=== PATIENT | male | born 1980 | race Caucasian/White ===

== ENCOUNTER 2020-01-13 22:30 | Emergency (ER) | payer SELFPAY ==
[~2020-01-13] VITALS: Ht 167.6 cm; Wt 63.5 kg
[2020-01-14 01:22] VITALS: BP 111/78
== END 2020-01-14 01:34 | disposition home or self-care (01) ==
LOC: EDBD 22:30 → ER 22:36
DX: R06.02 Shortness of breath (principal); J02.9 Acute pharyngitis, unspecified; R19.7 Diarrhea, unspecified; Z20.828 Contact with and (suspected) exposure to other viral communicable diseases
CPT/HCPCS: 71045; 87635; 87804; 87880; 99284; U0003

== ENCOUNTER 2021-01-14 16:27 | Emergency (ER) | payer MEDICAID, OTHER ==
[~2021-01-14] VITALS: Ht 167.6 cm; Wt 72.6 kg
[2021-01-14 18:56] VITALS: BP 129/82
[2021-01-14 20:50] LABS: Basophils # (auto) 0 10 ^3/uL (0-0.2); Basophils % (auto) 0.3 % (0.0-2.0); Eosinophils # (auto) 0.1 10 ^3/uL (0-0.8); Eosinophils % (auto) 1.5 % (0.0-7.0); Hematocrit 37.2 % (41.0-53.0); Hemoglobin 12.8 g/dL (13.5-17.5); Lymphocytes # (auto) 1.8 10 ^3/uL (0.4-5.4); Lymphocytes % (auto) 20.8 % (10.0-50.0); Mean Corpuscular Hemoglobin 30.5 pg (28.0-32.0); Mean Corpuscular Hgb Conc. 34.3 g/dL (32.0-36.0); Mean Corpuscular Volume 88.9 fL (80.0-100.0); Monocytes # (auto) 0.7 10 ^3/uL (0-1.3); Monocytes % (auto) 8.1 % (0.0-12.0); Neutrophils # (auto) 5.9 10 ^3/uL (1.6-8.6); Neutrophils % (auto) 69.3 % (37.0-80.0); Platelet Count (auto) 230 10^3/uL (140-450); Red Blood Cells 4.19 10^6/uL (4.5-5.90); Red Cell Distribution Width 13.2 % (11.8-14.3); White Blood Cell 8.6 10^3/uL (4.4-10.8)
[2021-01-14 21:16] LABS: Potassium 3.4 mmol/L (3.5-5.1)
[2021-01-14 21:23] LABS: Albumin 3.6 g/dL (3.4-5.0); BUN/Creatinine Ratio 12.7; Bilirubin, Total 0.3 mg/dL (0.2-1.0); CRP High Sensitivity 0.38 mg/dL (< 0.3); Calcium 8.5 mg/dL (8.5-10.1)
== END 2021-01-14 21:53 | disposition home or self-care (01) ==
LOC: ER 16:27
DX: L03.115 Cellulitis of right lower limb (principal)
CPT/HCPCS: 36415; 73700; 80053; 83605; 85025; 85049; 85652; 86141; 87040

== ENCOUNTER 2021-10-20 14:58 | Emergency (ER) | payer OTHER ==
[~2021-10-20] VITALS: Ht 180.3 cm; Wt 74.8 kg
[2021-10-20 19:14] VITALS: BP 134/80
== END 2021-10-20 19:20 | disposition home or self-care (01) ==
LOC: ER 14:58
DX: S61.210A Laceration without foreign body of right index finger without damage to nail, initial encounter (principal); W26.8XXA Contact with other sharp object(s), not elsewhere classified, initial encounter; Y93.89 Activity, other specified; Y92.89 Other specified places as the place of occurrence of the external cause; Y99.8 Other external cause status
CPT/HCPCS: 12002

== ENCOUNTER 2022-04-27 11:26 | Inpatient (IN) | payer OTHER ==
[~2022-04-27] VITALS: Ht 180.3 cm; Wt 70.2 kg
[2022-04-27] MEDS ORDERED: VANCOMYCIN 1GM/250ML 250 ML IV ONE (14:15)
[2022-04-27] MEDS ORDERED: SODIUM CHLORIDE 0.9% 2,250 ML IV ONE (14:15)
[2022-04-27] MEDS ORDERED: KETOROLAC TROMETH 30 MG/ML 1ML VIAL IV ONE (14:15)
[2022-04-27] MEDS ORDERED: PIPERACILLIN-TAZOB 3.375GM 100 ML IV ONE (14:15)
[2022-04-27] MEDS ORDERED: ONDANSETRON HCL 4 MG/2 ML VIAL IV ONE (14:15)
[2022-04-27 14:36] LABS: Basophils # (auto) 0 10 ^3/uL (0-0.2); Basophils % (auto) 0.2 % (0.0-2.0); Eosinophils # (auto) 0 10 ^3/uL (0-0.8); Eosinophils % (auto) 0.1 % (0.0-7.0); Hematocrit 43.7 % (41.0-53.0); Hemoglobin 14.8 g/dL (13.5-17.5); Lymphocytes # (auto) 1.3 10 ^3/uL (0.4-5.4); Mean Corpuscular Hemoglobin 29.4 pg (28.0-32.0); Mean Corpuscular Hgb Conc. 33.8 g/dL (32.0-36.0); Monocytes # (auto) 1.6 10 ^3/uL (0-1.3); Monocytes % (auto) 9.7 % (0.0-12.0); Neutrophils # (auto) 13.6 10 ^3/uL (1.6-8.6); Red Blood Cells 5.02 10^6/uL (4.5-5.90); Red Cell Distribution Width 13.5 % (11.8-14.3); White Blood Cell 16.5 10^3/uL (4.4-10.8)
[2022-04-27 14:57] LABS: Albumin 4.2 g/dL (3.4-5.0); Calcium 8.8 mg/dL (8.5-10.1); Potassium 3.9 mmol/L (3.5-5.1)
[2022-04-27 15:06] LABS: BUN/Creatinine Ratio 45.1; Bilirubin, Total 1.5 mg/dL (0.2-1.0); Total Protein 8.1 g/dL (6.4-8.2)
[2022-04-27] MEDS ORDERED: NITROGLYCERIN 0.4 MG SL TAB SL PRN (18:30)
[2022-04-27] MEDS ORDERED: SODIUM CHLORIDE 0.9% 1,000 ML IV ONE (18:30)
[2022-04-27] MEDS ORDERED: MORPHINE SULFATE INJ 2 MG/ml SYRG IV PRN (18:30)
[2022-04-27] MEDS ORDERED: THIAMINE 100mg/ml INJ (200mg/2ml VIAL) IV ONE (18:45)
[2022-04-27 18:47] LABS: Amylase 41 U/L (25-115); Blood Alcohol < 3.0 mg/dL (0-5)
[2022-04-27 19:14] LABS: Cholesterol 160 mg/dL (< 200)
[2022-04-27 19:17] LABS: HDL Cholesterol 52 mg/dL (40-59); LDL Cholesterol 92 mg/dL (< 100); Triglycerides 175 mg/dL (< 150)
[2022-04-27 19:27] LABS: INR 0.95 (0.9-1.15)
[2022-04-27] MEDS: SODIUM CHLORIDE 0.9% 1,000 ML IV SCH (22:03)
[2022-04-27 22:10] LABS: Urine Bacteria FEW /hpf (None Seen); Urine Blood 3+ /uL (Negative); Urine Hyaline Cast FEW /lpf (0 - 2); Urine Specific Gravity 1.019 (1.001-1.035); Urine WBC 3 /hpf (0 - 3)
[2022-04-27 22:22] LABS: Alcohol, Urine < 3.0 mg/dL (0-10); Amphetamine Screen, Urine NEGATIVE (NEGATIVE); Barbiturate Scree,Urine NEGATIVE (NEGATIVE); Benzodiazephine Screen, Urine NEGATIVE (NEGATIVE); Cannabinoid Screen, Urine POSITIVE (NEGATIVE); Cocaine Screen, Urine NEGATIVE (NEGATIVE); Opiate Scree,Urine NEGATIVE (NEGATIVE); Phencyclidine Screen, Urine NEGATIVE (NEGATIVE)
[2022-04-27] MEDS: CLINDAMYCIN 600MG IV 50 ML IV SCH (23:30)
[2022-04-27] MEDS: metroNIDAZOLE 500MG/100ML 100 ML IV SCH (23:30)
[2022-04-28] MEDS: ONDANSETRON HCL 4 MG/2 ML VIAL IV PRN (00:33)
[2022-04-28] MEDS: SODIUM CHLORIDE 0.9% 1,000 ML IV SCH ×3 (01:40→22:30)
[2022-04-28] MEDS: metroNIDAZOLE 500MG/100ML 100 ML IV SCH ×3 (05:06→23:40)
[2022-04-28] MEDS: CLINDAMYCIN 600MG IV 50 ML IV SCH ×3 (05:07→22:25)
[2022-04-28 06:54] LABS: Basophils # (auto) 0 10 ^3/uL (0-0.2); Basophils % (auto) 0.2 % (0.0-2.0); Eosinophils # (auto) 0 10 ^3/uL (0-0.8); Eosinophils % (auto) 0.4 % (0.0-7.0); Hemoglobin 12.3 g/dL (13.5-17.5); Lymphocytes # (auto) 1.2 10 ^3/uL (0.4-5.4); Lymphocytes % (auto) 11.3 % (10.0-50.0); Mean Corpuscular Hemoglobin 30.9 pg (28.0-32.0); Mean Corpuscular Hgb Conc. 35.1 g/dL (32.0-36.0); Mean Corpuscular Volume 87.9 fL (80.0-100.0); Monocytes # (auto) 1.2 10 ^3/uL (0-1.3); Monocytes % (auto) 11.9 % (0.0-12.0); Neutrophils % (auto) 76.2 % (37.0-80.0); Red Blood Cells 3.98 10^6/uL (4.5-5.90); Red Cell Distribution Width 13.3 % (11.8-14.3); White Blood Cell 10.5 10^3/uL (4.4-10.8)
[2022-04-28] MEDS: cefTRIAXone 1GM/50ML D5W 50 ML IV SCH (09:38)
[2022-04-28] MEDS: THIAMINE 100mg/ml INJ (200mg/2ml VIAL) IV SCH (10:53)
[2022-04-28 12:07] LABS: Albumin 2.9 g/dL (3.4-5.0); Calcium 7.3 mg/dL (8.5-10.1); Potassium 3.5 mmol/L (3.5-5.1)
[2022-04-28 12:11] LABS: BUN/Creatinine Ratio 45.9; Bilirubin, Total 0.7 mg/dL (0.2-1.0); Total Protein 5.2 g/dL (6.4-8.2)
[2022-04-28 13:40] VITALS: BP 118/72
[2022-04-28] MEDS ORDERED: FOLIC ACID 1 MG TAB PO ONE (16:45)
[2022-04-28 17:33] VITALS: BP 117/80
[2022-04-28 22:26] VITALS: BP 110/66
[2022-04-29 05:11] VITALS: BP 127/60
[2022-04-29 05:23] LABS: Basophils # (auto) 0 10 ^3/uL (0-0.2); Basophils % (auto) 0.2 % (0.0-2.0); Eosinophils # (auto) 0.1 10 ^3/uL (0-0.8); Eosinophils % (auto) 1.6 % (0.0-7.0); Hematocrit 33.4 % (41.0-53.0); Hemoglobin 11.5 g/dL (13.5-17.5); Lymphocytes # (auto) 1.5 10 ^3/uL (0.4-5.4); Lymphocytes % (auto) 19.8 % (10.0-50.0); Mean Corpuscular Hemoglobin 30.5 pg (28.0-32.0); Mean Corpuscular Hgb Conc. 34.3 g/dL (32.0-36.0); Mean Corpuscular Volume 88.9 fL (80.0-100.0); Monocytes # (auto) 1.1 10 ^3/uL (0-1.3); Monocytes % (auto) 14.5 % (0.0-12.0); Neutrophils # (auto) 4.8 10 ^3/uL (1.6-8.6); Neutrophils % (auto) 63.9 % (37.0-80.0); Red Blood Cells 3.75 10^6/uL (4.5-5.90); Red Cell Distribution Width 13.2 % (11.8-14.3); White Blood Cell 7.5 10^3/uL (4.4-10.8)
[2022-04-29] MEDS: CLINDAMYCIN 600MG IV 50 ML IV SCH ×3 (05:26→22:55)
[2022-04-29 05:35] LABS: Albumin 2.7 g/dL (3.4-5.0); Calcium 7.4 mg/dL (8.5-10.1); Potassium 3.6 mmol/L (3.5-5.1)
[2022-04-29 05:37] LABS: BUN/Creatinine Ratio 25.3
[2022-04-29 05:40] LABS: Bilirubin, Total 0.4 mg/dL (0.2-1.0); Total Protein 4.9 g/dL (6.4-8.2)
[2022-04-29] MEDS: metroNIDAZOLE 500MG/100ML 100 ML IV SCH ×3 (06:40→21:43)
[2022-04-29 08:00] VITALS: BP 122/77
[2022-04-29 09:25] LABS: Hepatitis B Surface Antibody Positive (Negative)
[2022-04-29] MEDS: FOLIC ACID 1 MG TAB PO SCH (09:40)
[2022-04-29] MEDS: cefTRIAXone 1GM/50ML D5W 50 ML IV SCH (09:41)
[2022-04-29] MEDS: THIAMINE 100mg/ml INJ (200mg/2ml VIAL) IV SCH (09:41)
[2022-04-29 10:02] LABS: Hepatitis A Total Antibody Positive (Negative)
[2022-04-29 12:00] VITALS: BP 128/73
[2022-04-29 12:40] LABS: Hepatitis C Antibody Negative (Negative)
[2022-04-29] MEDS: SODIUM CHLORIDE 0.9% 1,000 ML IV SCH ×2 (13:00→17:40)
[2022-04-29] MEDS: MORPHINE SULFATE INJ 2 MG/ml SYRG IV PRN ×2 (13:51→21:26)
[2022-04-29] MEDS: ONDANSETRON HCL 4 MG/2 ML VIAL IV PRN ×2 (14:00→21:25)
[2022-04-29 16:00] VITALS: BP 141/81
[2022-04-29] MEDS: SUCRALFATE 1 GM/10 ML ORAL SUSP PO SCH (21:44)
[2022-04-29] MEDS: PANTOPRAZOLE 40 MG/10 ML VIAL INJ IV SCH (21:45)
[2022-04-29 22:00] VITALS: BP 113/67
[2022-04-30 05:00] VITALS: BP 125/71
[2022-04-30] MEDS: SODIUM CHLORIDE 0.9% 1,000 ML IV SCH ×4 (05:21→20:20)
[2022-04-30] MEDS: CLINDAMYCIN 600MG IV 50 ML IV SCH ×3 (05:21→22:50)
[2022-04-30 06:05] LABS: Basophils # (auto) 0 10 ^3/uL (0-0.2); Basophils % (auto) 0.3 % (0.0-2.0); Eosinophils # (auto) 0.2 10 ^3/uL (0-0.8); Hematocrit 33.4 % (41.0-53.0); Hemoglobin 11.4 g/dL (13.5-17.5); Lymphocytes # (auto) 1.3 10 ^3/uL (0.4-5.4); Lymphocytes % (auto) 20.5 % (10.0-50.0); Mean Corpuscular Hemoglobin 30.2 pg (28.0-32.0); Mean Corpuscular Hgb Conc. 34.1 g/dL (32.0-36.0); Mean Corpuscular Volume 88.7 fL (80.0-100.0); Monocytes % (auto) 15.1 % (0.0-12.0); Neutrophils % (auto) 61.1 % (37.0-80.0); Red Blood Cells 3.77 10^6/uL (4.5-5.90); Red Cell Distribution Width 13.4 % (11.8-14.3); White Blood Cell 6.5 10^3/uL (4.4-10.8)
[2022-04-30 06:24] LABS: Albumin 2.7 g/dL (3.4-5.0); Calcium 7.4 mg/dL (8.5-10.1); Potassium 3.5 mmol/L (3.5-5.1)
[2022-04-30 06:28] LABS: Bilirubin, Total 0.3 mg/dL (0.2-1.0); Total Protein 4.8 g/dL (6.4-8.2)
[2022-04-30] MEDS: metroNIDAZOLE 500MG/100ML 100 ML IV SCH ×2 (06:35→14:41)
[2022-04-30] MEDS: SUCRALFATE 1 GM/10 ML ORAL SUSP PO SCH ×4 (07:00→22:27)
[2022-04-30 08:00] VITALS: BP 123/73
[2022-04-30] MEDS: FOLIC ACID 1 MG TAB PO SCH (10:00)
[2022-04-30] MEDS: PANTOPRAZOLE 40 MG/10 ML VIAL INJ IV SCH ×2 (10:06→22:27)
[2022-04-30] MEDS: THIAMINE 100mg/ml INJ (200mg/2ml VIAL) IV SCH (10:06)
[2022-04-30] MEDS: cefTRIAXone 1GM/50ML D5W 50 ML IV SCH (10:18)
[2022-04-30] MEDS ORDERED: PROPOFOL 10 MG/ML 20 ML IV ONE (12:37)
[2022-04-30] MEDS ORDERED: LIDOCAINE 2% (LOCAL ANESTH.) PF 5ml SDV ONE (12:37)
[2022-04-30 16:00] VITALS: BP 124/71
[2022-04-30 21:21] VITALS: BP 109/64
[2022-05-01] MEDS: SODIUM CHLORIDE 0.9% 1,000 ML IV SCH ×3 (03:00→18:37)
[2022-05-01 04:54] VITALS: BP 106/66
[2022-05-01] MEDS: CLINDAMYCIN 600MG IV 50 ML IV SCH ×3 (05:27→22:04)
[2022-05-01 05:41] LABS: Basophils # (auto) 0 10 ^3/uL (0-0.2); Basophils % (auto) 0.5 % (0.0-2.0); Eosinophils # (auto) 0.2 10 ^3/uL (0-0.8); Eosinophils % (auto) 3.1 % (0.0-7.0); Hematocrit 35.9 % (41.0-53.0); Hemoglobin 12.2 g/dL (13.5-17.5); Lymphocytes # (auto) 1.3 10 ^3/uL (0.4-5.4); Lymphocytes % (auto) 19.5 % (10.0-50.0); Mean Corpuscular Hemoglobin 30.1 pg (28.0-32.0); Mean Corpuscular Volume 88.6 fL (80.0-100.0); Monocytes % (auto) 14.9 % (0.0-12.0); Neutrophils # (auto) 4.2 10 ^3/uL (1.6-8.6); Red Blood Cells 4.05 10^6/uL (4.5-5.90); Red Cell Distribution Width 13.6 % (11.8-14.3); White Blood Cell 6.7 10^3/uL (4.4-10.8)
[2022-05-01 06:06] LABS: Albumin 2.6 g/dL (3.4-5.0); BUN/Creatinine Ratio 17.1; Calcium 7.7 mg/dL (8.5-10.1); Potassium 3.2 mmol/L (3.5-5.1)
[2022-05-01 06:09] LABS: Bilirubin, Total 0.3 mg/dL (0.2-1.0); Total Protein 5.2 g/dL (6.4-8.2)
[2022-05-01] MEDS: metroNIDAZOLE 500MG/100ML 100 ML IV SCH ×4 (06:47→22:04)
[2022-05-01] MEDS: SUCRALFATE 1 GM/10 ML ORAL SUSP PO SCH ×4 (06:47→22:05)
[2022-05-01] MEDS: POTASSIUM CHL 20MEQ/100ML 100 ML IV SCH ×2 (08:19→13:12)
[2022-05-01 09:00] VITALS: BP 116/79
[2022-05-01] MEDS: PANTOPRAZOLE 40 MG/10 ML VIAL INJ IV SCH ×2 (10:52→22:04)
[2022-05-01] MEDS: THIAMINE 100mg/ml INJ (200mg/2ml VIAL) IV SCH (10:55)
[2022-05-01] MEDS: FOLIC ACID 1 MG TAB PO SCH (10:57)
[2022-05-01 13:00] VITALS: BP 119/74
[2022-05-01] MEDS: MORPHINE SULFATE INJ 2 MG/ml SYRG IV PRN ×2 (13:13→20:03)
[2022-05-01] MEDS: cefTRIAXone 1GM/50ML D5W 50 ML IV SCH (14:40)
[2022-05-01 17:00] VITALS: BP 133/82
[2022-05-01 22:00] VITALS: BP 122/62
[2022-05-02] MEDS: SODIUM CHLORIDE 0.9% 1,000 ML IV SCH ×5 (00:03→23:04)
[2022-05-02 05:00] VITALS: BP 136/83
[2022-05-02] MEDS: CLINDAMYCIN 600MG IV 50 ML IV SCH ×2 (06:13→15:11)
[2022-05-02] MEDS: metroNIDAZOLE 500MG/100ML 100 ML IV SCH ×2 (06:13→15:11)
[2022-05-02] MEDS: SUCRALFATE 1 GM/10 ML ORAL SUSP PO SCH ×4 (06:13→22:10)
[2022-05-02 06:32] LABS: Basophils # (auto) 0 10 ^3/uL (0-0.2); Basophils % (auto) 0.5 % (0.0-2.0); Eosinophils # (auto) 0.2 10 ^3/uL (0-0.8); Eosinophils % (auto) 2.3 % (0.0-7.0); Hemoglobin 11.8 g/dL (13.5-17.5); Lymphocytes # (auto) 1.4 10 ^3/uL (0.4-5.4); Lymphocytes % (auto) 20.3 % (10.0-50.0); Mean Corpuscular Hemoglobin 29.9 pg (28.0-32.0); Mean Corpuscular Hgb Conc. 33.8 g/dL (32.0-36.0); Mean Corpuscular Volume 88.5 fL (80.0-100.0); Monocytes # (auto) 0.9 10 ^3/uL (0-1.3); Monocytes % (auto) 13.9 % (0.0-12.0); Neutrophils # (auto) 4.3 10 ^3/uL (1.6-8.6); Red Blood Cells 3.96 10^6/uL (4.5-5.90); Red Cell Distribution Width 13.5 % (11.8-14.3); White Blood Cell 6.7 10^3/uL (4.4-10.8)
[2022-05-02 06:48] LABS: Albumin 2.5 g/dL (3.4-5.0); Calcium 7.7 mg/dL (8.5-10.1); Magnesium 1.3 mg/dL (1.6-2.6); Potassium 3.9 mmol/L (3.5-5.1)
[2022-05-02 06:50] LABS: BUN/Creatinine Ratio 13.2
[2022-05-02 06:53] LABS: Bilirubin, Total 0.2 mg/dL (0.2-1.0); Total Protein 4.7 g/dL (6.4-8.2)
[2022-05-02] MEDS ORDERED: MAGNESIUM SULFATE 1GM/100ML 100 ML IV ONE (08:00)
[2022-05-02] MEDS: FOLIC ACID 1 MG TAB PO SCH (09:08)
[2022-05-02] MEDS: PANTOPRAZOLE 40 MG/10 ML VIAL INJ IV SCH ×2 (09:08→22:10)
[2022-05-02] MEDS: THIAMINE 100mg/ml INJ (200mg/2ml VIAL) IV SCH (09:13)
[2022-05-02] MEDS: cefTRIAXone 1GM/50ML D5W 50 ML IV SCH (11:24)
[2022-05-02 12:30] VITALS: BP 123/86
[2022-05-02] MEDS: MORPHINE SULFATE INJ 2 MG/ml SYRG IV PRN ×2 (12:54→20:12)
[2022-05-02 17:00] VITALS: BP 118/77
[2022-05-02] MEDS: Juven Fruit Punch Powder PACKET 28.8gm PO SCH (18:21)
[2022-05-02 22:00] VITALS: BP 107/70
[2022-05-03 05:00] VITALS: BP 122/84
[2022-05-03 06:04] LABS: Albumin 2.7 g/dL (3.4-5.0); Magnesium 1.5 mg/dL (1.6-2.6); Potassium 4.2 mmol/L (3.5-5.1)
[2022-05-03 06:07] LABS: Bilirubin, Total 0.3 mg/dL (0.2-1.0); Total Protein 4.9 g/dL (6.4-8.2)
[2022-05-03 06:32] LABS: Hematocrit 36.1 % (41.0-53.0); Hemoglobin 12.3 g/dL (13.5-17.5); Mean Corpuscular Hemoglobin 30.2 pg (28.0-32.0); Mean Corpuscular Hgb Conc. 34.1 g/dL (32.0-36.0); Mean Corpuscular Volume 88.5 fL (80.0-100.0); Red Blood Cells 4.08 10^6/uL (4.5-5.90); Red Cell Distribution Width 13.7 % (11.8-14.3); White Blood Cell 6.6 10^3/uL (4.4-10.8)
[2022-05-03 07:15] LABS: Band Neutrophils % (manual) 0; Basophils % (manual) 0 (0.0-2.0); Blast Cells 0; Metamyelocytes % 0; Myelocytes % 0; Promyelocytes % 0; Reactive Lymphocytes 0
[2022-05-03] MEDS: Juven Fruit Punch Powder PACKET 28.8gm PO SCH (08:00)
[2022-05-03 08:09] LABS: Eosinophils % (manual) 1 (0-7); Lymphocytes % (manual) 31 (10.0-50.0); Monocytes % (manual) 17 (0-12)
[2022-05-03 08:30] VITALS: BP 120/70
[2022-05-03] MEDS: FOLIC ACID 1 MG TAB PO SCH (09:41)
[2022-05-03] MEDS: PANTOPRAZOLE 40 MG/10 ML VIAL INJ IV SCH (09:42)
[2022-05-03] MEDS: THIAMINE 100mg/ml INJ (200mg/2ml VIAL) IV SCH (09:42)
[2022-05-03] MEDS: cefTRIAXone 1GM/50ML D5W 50 ML IV SCH (09:42)
[2022-05-03] MEDS: MORPHINE SULFATE INJ 2 MG/ml SYRG IV PRN (09:53)
[2022-05-03] MEDS: SODIUM CHLORIDE 0.9% 1,000 ML IV SCH (10:07)
[2022-05-03] MEDS: SUCRALFATE 1 GM/10 ML ORAL SUSP PO SCH (11:30)
[2022-05-03 12:26] VITALS: BP_SYST 118; BP_SYST 129; BP_DIAS 75; BP_DIAS 83
[2022-05-03] MEDS ORDERED: PANT40T PO (14:04)
[2022-05-03] MEDS ORDERED: MAGN400T40 PO (14:04)
[2022-05-03 15:12] VITALS: BP 118/68
== END 2022-05-03 16:40 | disposition home or self-care (01) | DRG 383 ==
LOC: ER 11:26 → EDBD 11:26 → OVERFLOW 18:33 → EAST 04-28 13:25
PROVIDERS: ADMIT Registered Nurse; ATTEND Student in an Organized Health Care Education/Training Program
PROC: 0DB68ZX Excision of Stomach, Via Natural or Artificial Opening Endoscopic, Diagnostic (ICD-10-PCS; 2022-04-30)
PROC: 0DB38ZX Excision of Lower Esophagus, Via Natural or Artificial Opening Endoscopic, Diagnostic (ICD-10-PCS; 2022-04-30)
PROC: 0DB98ZX Excision of Duodenum, Via Natural or Artificial Opening Endoscopic, Diagnostic (ICD-10-PCS; principal; 2022-04-30 12:45)
DX: L03.113 Cellulitis of right upper limb (principal); E43 Unspecified severe protein-calorie malnutrition; K22.10 Ulcer of esophagus without bleeding; K70.30 Alcoholic cirrhosis of liver without ascites; S40.811A Abrasion of right upper arm, initial encounter; D72.829 Elevated white blood cell count, unspecified; B15.9 Hepatitis A without hepatic coma; E83.42 Hypomagnesemia; Z20.822 Contact with and (suspected) exposure to COVID-19; K29.70 Gastritis, unspecified, without bleeding; W57.XXXA Bitten or stung by nonvenomous insect and other nonvenomous arthropods, initial encounter; S50.862A Insect bite (nonvenomous) of left forearm, initial encounter; E87.6 Hypokalemia; K21.00 Gastro-esophageal reflux disease with esophagitis, without bleeding; K44.9 Diaphragmatic hernia without obstruction or gangrene; R07.89 Other chest pain; R74.8 Abnormal levels of other serum enzymes; F19.90 Other psychoactive substance use, unspecified, uncomplicated; F10.10 Alcohol abuse, uncomplicated; Z87.19 Personal history of other diseases of the digestive system; Y93.89 Activity, other specified; Y92.89 Other specified places as the place of occurrence of the external cause; Y99.8 Other external cause status; Z68.22 Body mass index [BMI] 22.0-22.9, adult
CPT/HCPCS: 36415; 73200; 76705; 80053; 80061; 80307; 80320; 81001; 82150; 83605; 83735; 85007; 85025; 85027; 85610; 86704; 86706; 86708; 86803; 87040; 87340; 87426; 96365; 96375; C9113; G0378; J0696; J1885; J2001; J2405; J2543; J2704; J3480; J3490

== ENCOUNTER 2022-12-13 19:26 | Emergency (ER) | payer OTHER ==
[~2022-12-13] VITALS: Ht 175.3 cm; Wt 72.7 kg
[~2022-12-13 19:26] MED LIST: MAGN400T40 PO; PANT40T PO
[2022-12-13] MEDS ORDERED: ACET500T58 PO (23:14)
[2022-12-14 00:15] VITALS: BP 142/69
== END 2022-12-14 00:15 | disposition home or self-care (01) ==
LOC: EDUNIT# 19:26 → EDBD 19:26 → ER 19:28
DX: S00.03XA Contusion of scalp, initial encounter (principal); I10 Essential (primary) hypertension; W22.8XXA Striking against or struck by other objects, initial encounter; Y93.89 Activity, other specified; Y92.89 Other specified places as the place of occurrence of the external cause; Y99.8 Other external cause status
CPT/HCPCS: 70450

== ENCOUNTER 2022-12-19 13:22 | Emergency (ER) | payer OTHER ==
[~2022-12-19] VITALS: Ht 180.3 cm; Wt 69.9 kg
[~2022-12-19 13:22] MED LIST changes: +ACET500T58 PO
[2022-12-19 16:09] VITALS: BP 120/88
[2022-12-19] MEDS ORDERED: cefTRIAXone SOD 1,000 MG VL IM ONE (16:15)
[2022-12-19] MEDS ORDERED: HYDROcodone-ACET 10/325MG TAB PO ONE (16:15)
[2022-12-19] MEDS ORDERED: AUG875T PO (17:12)
[2022-12-19] MEDS ORDERED: IBUP1TAB5 PO (17:12)
[2022-12-19] MEDS ORDERED: MECL-126 PO (17:12)
== END 2022-12-19 17:25 | disposition home or self-care (01) ==
LOC: ER 13:22
DX: S06.0XAA Concussion with loss of consciousness status unknown, initial encounter (principal); K04.7 Periapical abscess without sinus; I10 Essential (primary) hypertension; W22.8XXA Striking against or struck by other objects, initial encounter; Y93.89 Activity, other specified; Y92.89 Other specified places as the place of occurrence of the external cause; Y99.8 Other external cause status
CPT/HCPCS: 70450; 96372; 99285; J0696

== ENCOUNTER 2023-02-01 13:12 | Emergency (ER) | payer OTHER ==
[~2023-02-01] VITALS: Ht 180.3 cm; Wt 66.3 kg
[2023-02-01 13:12] VITALS: BP 140/96; PULSE 110; RESP 17; TEMP 98.2; O2SAT 97
[~2023-02-01 13:12] MED LIST changes: +AUG875T PO; +IBUP1TAB5 PO; +MECL-126 PO
[2023-02-01] MEDS ORDERED: IBUP-1456 PO (19:26)
[2023-02-01] MEDS ORDERED: AMOX875T4 PO (19:26)
== END 2023-02-01 21:02 | disposition home or self-care (01) ==
LOC: ER 13:12
DX: H66.91 Otitis media, unspecified, right ear (principal); I10 Essential (primary) hypertension; F12.90 Cannabis use, unspecified, uncomplicated; F17.210 Nicotine dependence, cigarettes, uncomplicated; Z79.899 Other long term (current) drug therapy

== ENCOUNTER 2024-02-01 17:30 | Inpatient (IN) | payer MEDICAID, OTHER ==
[~2024-02-01] VITALS: Ht 180.3 cm; Wt 62.2 kg
[2024-02-01] MEDS: SODIUM CHLORIDE 0.9% 1,000 ML IV ONE (04:30)
[~2024-02-01 17:30] MED LIST changes: +AMOX875T4 PO; +IBUP-1456 PO
[2024-02-01 20:22] LABS: Basophils # (auto) 0.1 10 ^3/uL (0-0.2); Basophils % (auto) 0.3 % (0.0-2.0); Eosinophils # (auto) 0 10 ^3/uL (0-0.8); Hemoglobin 15.2 g/dL (13.5-17.5); Lymphocytes # (auto) 1.4 10 ^3/uL (0.4-5.4); Lymphocytes % (auto) 7.4 % (10.0-50.0); Mean Corpuscular Hemoglobin 30.4 pg (28.0-32.0); Mean Corpuscular Hgb Conc. 33.9 g/dL (32.0-36.0); Mean Corpuscular Volume 89.7 fL (80.0-100.0); Monocytes # (auto) 1.3 10 ^3/uL (0-1.3); Monocytes % (auto) 6.7 % (0.0-12.0); Neutrophils # (auto) 16.4 10 ^3/uL (1.6-8.6); Neutrophils % (auto) 85.6 % (37.0-80.0); Nucleated Red Blood Cells % 0.3 %; Red Blood Cells 5.02 10^6/uL (4.5-5.90); Red Cell Distribution Width 14.2 % (11.8-14.3); White Blood Cell 19.2 10^3/uL (4.4-10.8)
[2024-02-01 20:29] LABS: Chloride 98 mmol/L (98-107); Potassium 4.2 mmol/L (3.5-5.1); Sodium 137 mmol/L (136-145)
[2024-02-01 20:30] LABS: Anion Gap 13 (5-15); Calcium 10.6 mg/dL (8.7-10.4); Carbon Dioxide 26 mmol/L (20-30)
[2024-02-01 20:35] LABS: BUN/Creatinine Ratio 15.8 (10.0-20.0); Blood Urea Nitrogen 50 mg/dL (9-23); Glucose 108 mg/dL (74-106)
[2024-02-01 21:14] LABS: Creatine Kinase IFCC 10243 U/L (46-171)
[2024-02-02] VITALS (7 sets, daily range): BP systolic 90–103; BP diastolic 53–67; PULSE 64–76; RESP 12–18; TEMP 97.3–98.1; O2SAT 97–100
[2024-02-02] MEDS: SODIUM CHLORIDE 0.9% 1,000 ML IV SCH (04:15)
[2024-02-02] MEDS ORDERED: TEMAZEPAM 15 MG CAP PO PRN (04:15)
[2024-02-02] MEDS: SODIUM CHLORIDE 0.9% 2,000 ML IV ONE (04:30)
[2024-02-02 04:58] LABS: Chloride 94 mmol/L (98-107); Potassium 3.9 mmol/L (3.5-5.1)
[2024-02-02 04:59] LABS: Anion Gap 12 (5-15); Calcium 9.9 mg/dL (8.7-10.4); Carbon Dioxide 25 mmol/L (20-30)
[2024-02-02 05:04] LABS: Alkaline Phosphatase 118 U/L (46-116); BUN/Creatinine Ratio 18.1 (10.0-20.0); Blood Urea Nitrogen 49 mg/dL (9-23); Glucose 120 mg/dL (74-106)
[2024-02-02 05:05] LABS: Basophils # (auto) 0.1 10 ^3/uL (0-0.2); Basophils % (auto) 0.3 % (0.0-2.0); Eosinophils # (auto) 0 10 ^3/uL (0-0.8); Eosinophils % (auto) 0.3 % (0.0-7.0); Hematocrit 36.7 % (41.0-53.0); Hemoglobin 12.6 g/dL (13.5-17.5); Lymphocytes # (auto) 2.6 10 ^3/uL (0.4-5.4); Lymphocytes % (auto) 16.8 % (10.0-50.0); Mean Corpuscular Hemoglobin 30.6 pg (28.0-32.0); Mean Corpuscular Hgb Conc. 34.4 g/dL (32.0-36.0); Monocytes # (auto) 1.5 10 ^3/uL (0-1.3); Monocytes % (auto) 9.8 % (0.0-12.0); Neutrophils # (auto) 11.3 10 ^3/uL (1.6-8.6); Neutrophils % (auto) 72.8 % (37.0-80.0); Nucleated Red Blood Cells % 0.1 %; Red Blood Cells 4.13 10^6/uL (4.5-5.90); Red Cell Distribution Width 14.5 % (11.8-14.3); White Blood Cell 15.5 10^3/uL (4.4-10.8)
[2024-02-02 05:06] LABS: Albumin 4.6 g/dL (3.2-4.8); Aspartate Aminotransferase 300 U/L (13-40); Total Protein 7.3 g/dL (5.7-8.2)
[2024-02-02 05:21] LABS: Sodium 131 mmol/L (136-145)
[2024-02-02 05:28] LABS: Alanine Aminotransferase 38 U/L (7-40)
[2024-02-02 07:21] LABS: Urine Bacteria FEW /hpf (None Seen); Urine Blood 2+ /uL (Negative); Urine Clarity Turbid (Clear); Urine Color Yellow (Yellow); Urine Hyaline Cast FEW /lpf (0 - 2); Urine Mucus FEW (None Seen); Urine Protein, UAD 1+ (Negative); Urine Specific Gravity 1.023 (1.001-1.035); Urine Urobilinogen Normal (Negative); Urine WBC 3 /hpf (0 - 3)
[2024-02-02 10:44] LABS: Amphetamine Screen, Urine Pos (NEGATIVE); Barbiturate Scree,Urine Neg (NEGATIVE); Benzodiazephine Screen, Urine Neg (NEGATIVE); Cannabinoid Screen, Urine Neg (NEGATIVE); Cocaine Screen, Urine Neg (NEGATIVE); Opiate Scree,Urine Neg (NEGATIVE); Phencyclidine Screen, Urine Neg (NEGATIVE)
[2024-02-02 11:55] LABS: Hepatitis B Surface Antigen Negative (Negative)
[2024-02-02 11:58] LABS: Hepatitis C Antibody Negative (Negative)
[2024-02-02] MEDS ORDERED: ACETAMINOPHEN 500 MG TAB PO PRN (15:15)
[2024-02-02] MEDS ORDERED: HYDROcodone-ACET 5/325MG TAB PO PRN (15:15)
[2024-02-02] MEDS ORDERED: DOCUSATE SOD 100 MG CAP PO PRN (15:15)
[2024-02-02] MEDS: ONDANSETRON HCL 4 MG/2 ML VIAL IV PRN (23:05)
[2024-02-03 00:56] VITALS: BP 86/56; PULSE 60; RESP 18; RESP 8; TEMP 97.9; O2SAT 98
[2024-02-03 05:00] VITALS: BP 86/48; PULSE 67; RESP 16; TEMP 97.7; O2SAT 98
[2024-02-03 06:40] LABS: Basophils # (auto) 0 10 ^3/uL (0-0.2); Basophils % (auto) 0.2 % (0.0-2.0); Eosinophils # (auto) 0.1 10 ^3/uL (0-0.8); Eosinophils % (auto) 0.8 % (0.0-7.0); Hematocrit 34.4 % (41.0-53.0); Hemoglobin 11.9 g/dL (13.5-17.5); Lymphocytes # (auto) 1.4 10 ^3/uL (0.4-5.4); Lymphocytes % (auto) 14.2 % (10.0-50.0); Mean Corpuscular Hemoglobin 31.1 pg (28.0-32.0); Mean Corpuscular Hgb Conc. 34.5 g/dL (32.0-36.0); Mean Corpuscular Volume 90.1 fL (80.0-100.0); Monocytes # (auto) 0.5 10 ^3/uL (0-1.3); Monocytes % (auto) 5.3 % (0.0-12.0); Neutrophils % (auto) 79.5 % (37.0-80.0); Red Blood Cells 3.82 10^6/uL (4.5-5.90)
[2024-02-03 06:56] LABS: Alanine Aminotransferase 48 U/L (7-40); Albumin 3.6 g/dL (3.2-4.8); Alkaline Phosphatase 87 U/L (46-116); Anion Gap 5 (5-15); Aspartate Aminotransferase 342 U/L (13-40); BUN/Creatinine Ratio 35.3 (10.0-20.0); Bilirubin, Total 0.4 mg/dL (0.2-1.0); Carbon Dioxide 27 mmol/L (20-30); Chloride 107 mmol/L (98-107); Glucose 93 mg/dL (74-106); Potassium 4.2 mmol/L (3.5-5.1); Sodium 139 mmol/L (136-145)
[2024-02-03 06:57] LABS: Total Protein 5.5 g/dL (5.7-8.2)
[2024-02-03 06:59] LABS: Blood Urea Nitrogen 30 mg/dL (9-23)
[2024-02-03 07:14] LABS: Creatine Kinase IFCC 14000 U/L (46-171)
[2024-02-03 09:00] VITALS: BP 114/66; PULSE 65; RESP 18; TEMP 98.4; O2SAT 98
[2024-02-03 11:50] VITALS: BP 89/57; PULSE 60; RESP 16; TEMP 98.5; O2SAT 97
[2024-02-03] MEDS: SODIUM CHLORIDE 0.9% 500 ML IV ONE (14:45)
[2024-02-03] MEDS ORDERED: NABU-72 PO (15:31)
[2024-02-03] MEDS: SODIUM CHLORIDE 0.9% 1,000 ML IV SCH (16:00)
[2024-02-03 21:00] VITALS: BP 110/63; PULSE 74; RESP 18; TEMP 99.6; O2SAT 98
[2024-02-03] MEDS: metroNIDAZOLE 500 MG TAB PO SCH (21:10)
[2024-02-04] VITALS (7 sets, daily range): BP systolic 105–116; BP diastolic 60–74; PULSE 65–96; RESP 16–22; TEMP 94–98.6; O2SAT 95–100
[2024-02-04 07:00] LABS: Alanine Aminotransferase 41 U/L (7-40); Albumin 3.4 g/dL (3.2-4.8); Alkaline Phosphatase 87 U/L (46-116); Anion Gap 8 (5-15); Aspartate Aminotransferase 187 U/L (13-40); BUN/Creatinine Ratio 13.3 (10.0-20.0); Blood Urea Nitrogen 10 mg/dL (9-23); Calcium 8.2 mg/dL (8.7-10.4); Carbon Dioxide 25 mmol/L (20-30); Chloride 104 mmol/L (98-107); Glucose 92 mg/dL (74-106); Potassium 3.8 mmol/L (3.5-5.1); Sodium 137 mmol/L (136-145)
[2024-02-04 07:01] LABS: Bilirubin, Total 0.4 mg/dL (0.2-1.0); Total Protein 5.5 g/dL (5.7-8.2)
[2024-02-04 07:11] LABS: Creatine Kinase IFCC 4490 U/L (46-171)
[2024-02-05 01:00] VITALS: BP 123/76; PULSE 68; RESP 20; TEMP 98.1; O2SAT 96
[2024-02-05 04:52] VITALS: BP 124/79; PULSE 72; RESP 20; TEMP 97.6; O2SAT 96
[2024-02-05 08:00] VITALS: BP 117/73; PULSE 70; RESP 16; TEMP 98.9; O2SAT 97
[2024-02-05 12:00] VITALS: BP 109/51; PULSE 61; RESP 16; TEMP 98.2; O2SAT 93
[2024-02-05 16:00] VITALS: BP 122/75; PULSE 68; RESP 16; TEMP 97.5; O2SAT 99
== END 2024-02-05 21:00 | disposition home or self-care (01) | DRG 351 ==
LOC: ER 17:30 → EDUNIT# 17:30 → EDBD 17:30 → OVERFLOW 02-02 04:10 → WEST WING 02-02 08:01
PROVIDERS: ADMIT Internal Medicine; ATTEND Internal Medicine
DX: M62.82 Rhabdomyolysis (principal); N17.0 Acute kidney failure with tubular necrosis; E87.1 Hypo-osmolality and hyponatremia; T67.01XA Heatstroke and sunstroke, initial encounter; E86.0 Dehydration; R74.01 Elevation of levels of liver transaminase levels; D72.829 Elevated white blood cell count, unspecified; R31.9 Hematuria, unspecified; R79.89 Other specified abnormal findings of blood chemistry; F15.10 Other stimulant abuse, uncomplicated; I10 Essential (primary) hypertension; F17.210 Nicotine dependence, cigarettes, uncomplicated; F12.10 Cannabis abuse, uncomplicated; D64.9 Anemia, unspecified; X30.XXXA Exposure to excessive natural heat, initial encounter
CPT/HCPCS: 36415; 76775; 80048; 80053; 80307; 81001; 82550; 82962; 83930; 84484; 85025; 86803; 87340; 87493; G0378; J2405

== ENCOUNTER 2024-05-05 22:25 | Emergency (ER) | payer MEDICAID ==
[~2024-05-05] VITALS: Ht 180.3 cm; Wt 77.5 kg
[~2024-05-05 22:25] MED LIST changes: -ACET500T58 PO; -AMOX875T4 PO; -AUG875T PO; -IBUP-1456 PO; -IBUP1TAB5 PO; -MAGN400T40 PO; -MECL-126 PO; +NABU-72 PO; -PANT40T PO
[2024-05-05] MEDS: cefTRIAXone SOD 1,000 MG VL IM ONE (23:53)
[2024-05-05 23:55] VITALS: BP 124/83; PULSE 91; RESP 18; TEMP 98.5; O2SAT 97
[2024-05-06] MEDS: LIDOCAINE 1% HCL (LOCAL ANESTH.) INJ 20ML MDV ONE (00:02)
[2024-05-06 00:17] LABS: Basophils # (auto) 0 10 ^3/uL (0-0.2); Basophils % (auto) 0.5 % (0.0-2.0); Eosinophils # (auto) 0.2 10 ^3/uL (0-0.8); Eosinophils % (auto) 2.1 % (0.0-7.0); Hematocrit 39.1 % (41.0-53.0); Hemoglobin 13.1 g/dL (13.5-17.5); Lymphocytes # (auto) 2.4 10 ^3/uL (0.4-5.4); Mean Corpuscular Hemoglobin 30.1 pg (28.0-32.0); Mean Corpuscular Hgb Conc. 33.4 g/dL (32.0-36.0); Monocytes % (auto) 11.2 % (0.0-12.0); Neutrophils # (auto) 5.6 10 ^3/uL (1.6-8.6); Neutrophils % (auto) 60.2 % (37.0-80.0); Platelet Count (auto) 312 10^3/uL (140-450); Red Blood Cells 4.35 10^6/uL (4.5-5.90); Red Cell Distribution Width 13.3 % (11.8-14.3); White Blood Cell 9.3 10^3/uL (4.4-10.8)
[2024-05-06 00:25] LABS: Chloride 106 mmol/L (98-107); Potassium 3.5 mmol/L (3.5-5.1); Sodium 140 mmol/L (136-145)
[2024-05-06 00:26] LABS: Anion Gap 7 (5-15); Carbon Dioxide 27 mmol/L (20-31)
[2024-05-06 00:27] LABS: Calcium 9.9 mg/dL (8.7-10.4)
[2024-05-06 00:31] LABS: BUN/Creatinine Ratio 21.8 (10.0-20.0); Blood Urea Nitrogen 22 mg/dL (9-23); Glucose 116 mg/dL (74-106)
[2024-05-06] MEDS ORDERED: IBU600T PO (01:22)
[2024-05-06] MEDS ORDERED: CEPH500T PO (01:22)
== END 2024-05-06 02:18 | disposition home or self-care (01) ==
LOC: ER 22:25
DX: L03.113 Cellulitis of right upper limb (principal); L02.413 Cutaneous abscess of right upper limb; I10 Essential (primary) hypertension; F17.210 Nicotine dependence, cigarettes, uncomplicated; F15.90 Other stimulant use, unspecified, uncomplicated; Z79.899 Other long term (current) drug therapy
CPT/HCPCS: 10061; 36415; 80048; 85025; 96372; 99284; J0696; J2003

== ENCOUNTER 2024-05-09 23:55 | Emergency (ER) | payer MEDICAID ==
[~2024-05-09] VITALS: Ht 180.3 cm; Wt 71.5 kg
[~2024-05-09 23:55] MED LIST changes: +CEPH500T PO; +IBU600T PO
[2024-05-10 00:05] VITALS: BP 131/91; O2SAT 98
[2024-05-10] MEDS ORDERED: CLIN1CAP70 PO (00:56)
[2024-05-10 01:00] VITALS: PULSE 110; RESP 14
== END 2024-05-10 01:05 | disposition home or self-care (01) ==
LOC: ER 23:55
DX: S40.261D Insect bite (nonvenomous) of right shoulder, subsequent encounter (principal); L03.113 Cellulitis of right upper limb; I10 Essential (primary) hypertension; F17.210 Nicotine dependence, cigarettes, uncomplicated; F12.90 Cannabis use, unspecified, uncomplicated; Z79.899 Other long term (current) drug therapy; W57.XXXD Bitten or stung by nonvenomous insect and other nonvenomous arthropods, subsequent encounter

== ENCOUNTER 2024-05-14 10:59 | Emergency (ER) | payer MEDICAID ==
[~2024-05-14] VITALS: Ht 180.3 cm; Wt 75.0 kg
[~2024-05-14 10:59] MED LIST changes: +CLIN1CAP70 PO
--- NOTE | 2024-05-14 11:06 | ED.PDOC ---
GI ASSESSMENT HPI Comments A 44 year old male brought in by EMS presents to the ED with the chief complaint of nausea, vomiting and diarrhea onset today around 10:30 am. Per EMS, patient was found in the street and was given 4 mg Zofran PO. Patient states he was feeling sick today around 10:30 and had one episode of nausea, vomiting and diarrhea. Patient also states he has been on antibiotics the past week due to a spider bite on his RT arm but did not take it yesterday, due to drinking alcohol all day celebrating his birthday. He has a past medical history fo HTN and Neuropathy. No other symptoms or modifying factors present at this time. Chief Complaint: Rash Time Seen by MD: 11:02 Primary Care Provider: NONE Reviewed Notes: Nurses Notes, Medications, Allergies Allergies: Coded Allergies: NO KNOWN ALLERGIES (Unverified , 01/13/20) Home Meds Active Scripts Clindamycin Hcl (Clindamycin Hcl) 300 Mg Cap, 1 CAP PO TID for 7 Days, #21 CAP 0 Refills Prov:DEBBIE BARILLAS 05/10/24 Ibuprofen Micronized (MOTRIN TABLET) 600 Mg Tb, 600 MG PO TID PRN, #40 TAB *Black box warning-NSAIDS can increase risk of VT & hypertension, GI irritation, ulceration, bleed, perferation. Do not use post cardiac surgery. Use short duration/lowest effective dose. Prov:NAT HENSLEY MD 05/06/24 Cephalexin Monohydrate (Cephalexin) 500 Mg Tab, 1 TAB PO QID, #40 TAB Prov:NAT HENSLEY MD 05/06/24 Reported Medications Nabumetone (Nabumetone) 500 Mg Tab, 1 TAB PO BID, TAB 02/03/24 Information Source: Patient, Emergency Med Personnel Mode of Arrival: EMS Timing: Minutes Duration: Since onset Prehospital treatment: None Severity: Moderate Recent: Antibiotics Associated sign and symptoms: Nausea, Vomiting, Diarrhea Past Medical History PAST MEDICAL HISTORY: HTN Surgical History: Denies all surgeries Family History Family History: Reviewed,noncontributory to illness, No family hx of DM, No family hx of Heart kathi, No family hx of HTN, No family hx ofKidney kathi, No family hx of Liver kathi, No family hx of Lung kathi, No family hx of Stroke, Family hx of Cancer Social History Smoker: Cigarettes, Less Than 1 Pack/Day Alcohol: Occasionally Drugs: Marijuana Lives In: Home Constitutional: denies: chills, diaphoresis, fatigue, fever, malaise, sweats, weakness, others EENTM: denies: blurred vision, double vision, ear bleeding, ear discharge, ear drainage, ear pain, ear ringing, eye pain, eye redness, hearing loss, mouth pain, mouth swelling, nasal discharge, nose bleeding, nose congestion, nose pain, photophobia, tearing, throat pain, throat swelling, voice changes, others Respiratory: denies: cough, hemoptysis, orthopnea, SOB at rest, shortness of breath, SOB with excertion, stridor, wheezing, others Cardiovascular: denies: chest pain, dizzy spells, diaphoresis, Dyspnea on exertion, edema, irregular heart beat, left arm pain, lightheadedness, palpitations, PND, syncope, others Gastrointestinal: reports: diarrhea, nausea, vomiting; denies: abdomen distended, abdominal pain, blood streaked bowels, constipated, dysphagia, difficulty swallowing, hematemesis, melena, poor appetite, poor fluid intake, rectal bleeding, rectal pain, others Genitourinary: denies: burning, dysuria, flank pain, frequency, hematuria, incontinence, penile discharge, penile sore, pain, testicle pain, testicle swelling, urgency, others Neurological: denies: dizziness, fainting, headache, left sided numbness, left sided weakness, numbness, paresthesia, pre-existing deficit, right sided numbness, right sided weakness, seizure, speech problems, tingling, tremors, weakness, others Musculoskeletal: denies: back pain, gout, joint pain, joint swelling, muscle pain, muscle stiffness, neck pain, others Integumetry: denies: bruises, change in color, change in hair/nails, dryness, laceration, lesions, lumps, rash, wounds, others Allergic/Immunocompromised: denies: Difficulty Healing, Frequent Infections, Hives, Itching, others Hematologic/Lymphatic: denies: anemia, blood clots, easy bleeding, easy bruising, swollen glands, others Endocrine: denies: excessive hunger, excessive sweating, excessive thirst, excessive urination, flushing, intolerance to cold, intolerance to heat, unexplained weight gain, unexplained weight loss, others Psychiatric: denies: anxiety, bipolar disorder, depression, hopeless, panic disorder, schizophrenia, sleepless, suicidal, others All Other Systems: Reviewed and Negative Physical Exam General Appearance: No Apparent Distress, Other (The patient was somewhat disheveled) HEENT: Normal ENT Inspection, Pharynx Normal, TMs Normal Neck: Full Range of Motion, Non-Tender, Normal, Normal Inspection Respiratory: Chest Non-Tender, Lungs Clear, No Accessory Muscle Use, No Respiratory Distress, Normal Breath Sounds Cardiovascular: No Edema, No JVD, No Murmur, No Gallop, Normal Peripheral Pulses, Regular Rate/Rhythm Breast Exam: Deferred Gastrointestinal: No Organomegaly, Non Tender, No Pulsatile Mass, Normal Bowel Sounds, Soft Genitalia: Deferred Pelvic: Deferred Rectal: Deferred Extremities: No calf tenderness, Normal capillary refill, No pedal edema Musculoskeletal : Apperance: Normal Neurologic: Alert, educational specialist II-XII nml as Tested, Motor Weakness, No Sensory Deficits, Other (Flat affect) Cerebellar Function: Normal Reflexes: Normal Skin: Dry, Normal Color, Warm Lymphatic: No Adenopathy Was a procedure done? Was a procedure done?: No GI differential Dx Differential Diagnosis: Gastritis/PUD, Gastroenteritis, Inflammatory BD, Pancreatitis, UTI, Electrolyte Imbalance, Food Poisoning X-Ray, Labs, Meds, VS Vital Signs Date Time Temp Pulse Resp B/P (MAP) Pulse Ox O2 Delivery O2 Flow Rate FiO2 05/14/24 14:46 99.5 103 20 120/99 (106) 96 99.5 05/14/24 12:50 98 16 90 Room Air* 0 21 05/14/24 12:50 97.7 98 16 101/67 (78) 90 97.7 05/14/24 11:02 98.1 92 18 121/79 (93) 96 Lab Test 05/14/24 14:00 05/14/24 12:02 Range/Units Urine Color Yellow Yellow Urine Clarity Clear Clear Urine pH 5.0 5.0-9.0 Urine Specific [place] 1.031 1.001-1.035 Urine Protein 1+ H Negative Urine Ketones Trace Negative Urine Blood Negative Negative /uL Urine Nitrite Negative Negative Urine Bilirubin Negative Negative Urine Urobilinogen Normal Negative mg/dL Urine Leukocyte Esterase Negative Negative /uL Urine RBC None seen 0 - 3 /hpf Urine WBC 1 0 - 3 /hpf Urine Squamous Epithelial Cells None seen <5 /hpf Urine Bacteria None seen None Seen /hpf Urine Mucus Few None Seen Urine Glucose Normal Normal mg/dL Urine Opiates Screen Neg NEGATIVE Urine Fentanyl Screen Neg NEGATIVE Urine Barbiturates Screen Neg NEGATIVE Urine Phencyclidine Screen Neg NEGATIVE Urine Amphetamines Screen Pos NEGATIVE Urine Benzodiazepines Screen Neg NEGATIVE Urine Cocaine Screen Neg NEGATIVE Urine Cannabinoids Screen Neg NEGATIVE White Blood Count 16.7 H 4.4-10.8 10^3/uL Red Blood Count 5.05 4.5-5.90 10^6/uL Hemoglobin 15.3 13.5-17.5 g/dL Hematocrit 45.3 41.0-53.0 % Mean Corpuscular Volume 89.7 80.0-100.0 fL Mean Corpuscular Hemoglobin 30.2 28.0-32.0 pg Mean Corpuscular Hemoglobin Concent 33.7 32.0-36.0 g/dL Red Cell Distribution Width 13.2 11.8-14.3 % Platelet Count 315 140-450 10^3/uL Mean Platelet Volume 7.0 6.9-10.8 fL Neutrophils (%) (Auto) 37.0-80.0 % Lymphocytes (%) (Auto) 10.0-50.0 % Monocytes (%) (Auto) 0.0-12.0 % Basophils (%) (Auto) 0.0-2.0 % Neutrophils # (Auto) 1.6-8.6 10 ^3/uL Lymphocytes # (Auto) 0.4-5.4 10 ^3/uL Monocytes # (Auto) 0-1.3 10 ^3/uL Differential Total Cells Counted 100.0 100 Neutrophils % (Manual) 86 H 37.0-80.0 Band Neutrophils % (Manual) 7 Lymphocytes % (Manual) 4 L 10.0-50.0 Monocytes % (Manual) 3 0-12 Eosinophils % (Manual) 0 0-7 Basophils % (Manual) 0 0.0-2.0 Metamyelocytes % (manual) 0 Myelocytes % (Manual) 0 Promyelocytes % (Manual) 0 Blast Cells % (Manual) 0 Reactive Lymphocytes 0 Platelet Estimate Adequate Red Blood Cell Morphology Normal Sodium Level 139 136-145 mmol/L Potassium Level 3.8 3.5-5.1 mmol/L Chloride Level 107 98-107 mmol/L Carbon Dioxide Level 27 20-31 mmol/L Anion Gap 5 5-15 Blood Urea Nitrogen 22 9-23 mg/dL Creatinine 0.96 0.700-1.30 mg/dL Glomerular Filtration Rate Calc 101 >90 mL/min BUN/Creatinine Ratio 22.9 H 10.0-20.0 Serum Glucose 110 H 74-106 mg/dL Calcium Level 10.3 8.7-10.4 mg/dL Current Medications Medications (Trade) Dose Ordered Sig/Isis Route Start Time Stop Time Status Last Admin Sodium Chloride 500 ml @ 500 mls/hr Q1H ONCE IV 05/14/24 11:15 05/14/24 12:14 DC 05/14/24 12:29 Ondansetron HCl (Zofran) 4 mg ONCE ONCE IV 05/14/24 11:15 05/14/24 11:16 DC 05/14/24 12:29 IV Hep-Lock was established The patient was given a 500 cc bolus of normal saline The patient was given Zofran 4 mg IV push for the vomiting The CBC shows an elevated white blood cell count of 16.7 The rest of the CBC is within normal limits The urine tox is positive for methamphetamines The urine test is negative for infection At this time, the patient was being discharged after he slept for a period of time and the patient's vital signs have remained stable The patient was given substance abuse counseling and is discharged Time of 1ST Reevaluation: 11:32 Reevaluation 1ST: Unchanged Patient Education/Counseling: Diagnosis, Treatment, Prognosis, Need For Follow Up Family Education/Counseling: No Family Present Departure 1 Departure Time of Disposition: 15:41 Impression: Primary Impression: Substance abuse Additional Impressions: Generalized weakness Nausea Disposition: 01 HOME / SELF CARE / HOMELESS Condition: Fair Discharged With: Self Critical Care Note Critical Care Time?: No Stability Stability form required: No Heart Score Heart Score: Heart Score Response (Comments) Value History N/A 0 EKG N/A 0 Age N/A 0 Risk Factors N/A 0 Troponin N/A 0 Total 0 I personally scribed for DANILO THOMAS MD ([email or web address]) on 05/14/24 at 11:06. Electronically submitted by Monse Castrejon ([email or web address]). I personally scribed for DANILO THOMAS MD ([email or web address]) on 05/14/24 at 11:13. Electronically submitted by Monse Castrejon ([email or web address]). DANILO THOMAS MD May 14, 2024 11:06
[2024-05-14 12:19] LABS: Hematocrit 45.3 % (41.0-53.0); Hemoglobin 15.3 g/dL (13.5-17.5); Mean Corpuscular Hemoglobin 30.2 pg (28.0-32.0); Mean Corpuscular Hgb Conc. 33.7 g/dL (32.0-36.0); Mean Corpuscular Volume 89.7 fL (80.0-100.0); Platelet Count (auto) 315 10^3/uL (140-450); Red Blood Cells 5.05 10^6/uL (4.5-5.90); Red Cell Distribution Width 13.2 % (11.8-14.3); White Blood Cell 16.7 10^3/uL (4.4-10.8)
[2024-05-14 12:24] LABS: Basophils % (manual) 0 (0.0-2.0); Blast Cells 0; Eosinophils % (manual) 0 (0-7); Metamyelocytes % 0; Myelocytes % 0; Promyelocytes % 0; Reactive Lymphocytes 0
[2024-05-14] MEDS: SODIUM CHLORIDE 0.9% 500 ML IV ONE (12:29)
[2024-05-14] MEDS: ONDANSETRON HCL 4 MG/2 ML VIAL IV ONE (12:29)
[2024-05-14 12:35] LABS: Anion Gap 5 (5-15); Carbon Dioxide 27 mmol/L (20-31); Chloride 107 mmol/L (98-107); Potassium 3.8 mmol/L (3.5-5.1); Sodium 139 mmol/L (136-145)
[2024-05-14 12:36] LABS: Calcium 10.3 mg/dL (8.7-10.4)
[2024-05-14 12:40] LABS: Glucose 110 mg/dL (74-106)
[2024-05-14 12:41] LABS: BUN/Creatinine Ratio 22.9 (10.0-20.0); Blood Urea Nitrogen 22 mg/dL (9-23)
[2024-05-14 12:50] VITALS: PULSE 98; RESP 16; O2SAT 90
[2024-05-14 13:14] LABS: Band Neutrophils % (manual) 7; Lymphocytes % (manual) 4 (10.0-50.0); Monocytes % (manual) 3 (0-12)
[2024-05-14 13:15] LABS: Platelet Estimate Adequate; RBC Morphology Normal
[2024-05-14 14:15] LABS: Urine Bacteria None Seen /hpf (None Seen)
[2024-05-14 14:27] LABS: Urine Blood Negative /uL (Negative); Urine Clarity Clear (Clear); Urine Color Yellow (Yellow); Urine Mucus FEW (None Seen); Urine Protein, UAD 1+ (Negative); Urine Specific Gravity 1.031 (1.001-1.035); Urine Urobilinogen Normal (Negative); Urine WBC 1 /hpf (0 - 3)
[2024-05-14 14:39] LABS: Amphetamine Screen, Urine Pos (NEGATIVE); Barbiturate Scree,Urine Neg (NEGATIVE); Benzodiazephine Screen, Urine Neg (NEGATIVE); Cocaine Screen, Urine Neg (NEGATIVE); Opiate Scree,Urine Neg (NEGATIVE); Phencyclidine Screen, Urine Neg (NEGATIVE)
[2024-05-14 14:40] LABS: Cannabinoid Screen, Urine Neg (NEGATIVE)
[2024-05-14 16:16] VITALS: BP 130/78; PULSE 110; RESP 20; TEMP 99.4; O2SAT 98
== END 2024-05-14 16:18 | disposition home or self-care (01) ==
LOC: ER 10:59 → EDBD 10:59 → ER 16:15
DX: F19.10 Other psychoactive substance abuse, uncomplicated (principal); F12.10 Cannabis abuse, uncomplicated; I10 Essential (primary) hypertension; R53.1 Weakness; F17.210 Nicotine dependence, cigarettes, uncomplicated; D72.829 Elevated white blood cell count, unspecified; Z79.899 Other long term (current) drug therapy
CPT/HCPCS: 36415; 80048; 80307; 81001; 85007; 85027; 96361; 96374; 99283; J2405; J7040

== ENCOUNTER 2024-05-14 16:17 | Inpatient (IN) | payer MEDICAID ==
[~2024-05-14] VITALS: Ht 180.3 cm; Wt 70.4 kg
--- NOTE | 2024-05-14 18:56 | ED.PDOC ---
History of Present Illness(SKN HPI Comments 44 year old male presents to ER for wound check. Patients states he has been experiencing redness/swelling and pain to left forearm with associated fatigue, body aches, n/v, diarrhea and low grade fever x 1 day. Patient states he was seen for similar symptoms in ER here earlier today and discharged home and presents back to ER due to worsening symptoms. He reports 5/10 pain to left arm. Patient is homeless and does have PMH of methamphetamine abuse, denying any IV drug use. States he's also been on clindamycin x 5 days due to hx of cellulitis to right arm. Denies sob, chest pain, headache, abdominal pain, changes in urination or any further symptoms/complaints Chief Complaint: Abscess Time Seen by MD: 18:07 Primary Care Provider: NONE History of Present Illness: Nurses Notes, Medications, Allergies Allergies: Coded Allergies: NO KNOWN ALLERGIES (Unverified , 01/13/20) Home Meds Active Scripts Clindamycin Hcl (Clindamycin Hcl) 300 Mg Cap, 1 CAP PO TID for 7 Days, #21 CAP 0 Refills Prov:DEBBIE BARILLAS 05/10/24 Ibuprofen Micronized (MOTRIN TABLET) 600 Mg Tb, 600 MG PO TID PRN, #40 TAB *Black box warning-NSAIDS can increase risk of TN & hypertension, GI irritation, ulceration, bleed, perferation. Do not use post cardiac surgery. Use short duration/lowest effective dose. Prov:NAT HENSLEY MD 05/06/24 Cephalexin Monohydrate (Cephalexin) 500 Mg Tab, 1 TAB PO QID, #40 TAB Prov:NAT HENSLEY MD 05/06/24 Reported Medications Nabumetone (Nabumetone) 500 Mg Tab, 1 TAB PO BID, TAB 02/03/24 Information Source: Patient Mode of Arrival: Ambulatory Past Medical History PAST MEDICAL HISTORY: HTN Surgical History: Denies all surgeries Social History Smoker: Cigarettes, Less Than 1 Pack/Day Alcohol: Occasionally Drugs: Marijuana, Methamphetamine Lives In: Homeless Constitutional: reports: others (As stated in HPI) EENTM: denies: blurred vision, double vision, ear bleeding, ear discharge, ear drainage, ear pain, ear ringing, eye pain, eye redness, hearing loss, mouth pain, mouth swelling, nasal discharge, nose bleeding, nose congestion, nose pain, photophobia, tearing, throat pain, throat swelling, voice changes, others Respiratory: denies: cough, hemoptysis, orthopnea, SOB at rest, shortness of breath, SOB with excertion, stridor, wheezing, others Cardiovascular: denies: chest pain, dizzy spells, diaphoresis, Dyspnea on exertion, edema, irregular heart beat, left arm pain, lightheadedness, palpitations, PND, syncope, others Gastrointestinal: denies: abdomen distended, abdominal pain, blood streaked bowels, constipated, diarrhea, dysphagia, difficulty swallowing, hematemesis, melena, nausea, poor appetite, poor fluid intake, rectal bleeding, rectal pain, vomiting, others Genitourinary: denies: burning, dysuria, flank pain, frequency, hematuria, incontinence, penile discharge, penile sore, pain, testicle pain, testicle swelling, urgency, others Neurological: denies: dizziness, fainting, headache, left sided numbness, left sided weakness, numbness, paresthesia, pre-existing deficit, right sided numbness, right sided weakness, seizure, speech problems, tingling, tremors, weakness, others Musculoskeletal: denies: back pain, gout, joint pain, joint swelling, muscle pain, muscle stiffness, neck pain, others Integumetry: reports: others (As stated in HPI) Allergic/Immunocompromised: denies: Difficulty Healing, Frequent Infections, Hives, Itching, others Hematologic/Lymphatic: denies: anemia, blood clots, easy bleeding, easy bruising, swollen glands, others Endocrine: denies: excessive hunger, excessive sweating, excessive thirst, excessive urination, flushing, intolerance to cold, intolerance to heat, unexplained weight gain, unexplained weight loss, others Psychiatric: denies: anxiety, bipolar disorder, depression, hopeless, panic disorder, schizophrenia, sleepless, suicidal, others Physical Exam General Appearance: No Apparent Distress HEENT: Normal ENT Inspection, PERRL/EOMI, Pharynx Normal, TMs Normal Neck: Full Range of Motion, Non-Tender, Normal Respiratory: Chest Non-Tender, Lungs Clear, No Accessory Muscle Use, No Respiratory Distress, Normal Breath Sounds Cardiovascular: No Murmur, No Gallop, Regular Rate/Rhythm Breast Exam: Deferred Gastrointestinal: NOT DONE Genitalia: Deferred Pelvic: Deferred Rectal: Deferred Extremities: Normal capillary refill, Normal range of motion Musculoskeletal : Extremity Location: Forearm (Moderate swelling/TTP/erythema/induration noted to left midforearm. No red streaking/fluctuance/drainage noted. Pulses intact) Neurologic: Alert, indirect fire infantryman II-XII nml as Tested, No Motor Deficits, Normal Affect, Normal Mood, No Sensory Deficits Cerebellar Function: Normal Reflexes: Normal Skin: Dry, Warm Peripheral Pulses: 2+ Radial (R), 2+ Radial (L), 2+ Brachial (R), 2+ Brachial (L) Lymphatic: No Adenopathy Was a procedure done? Was a procedure done?: No Sedation Sedation?: No Differential Diagnosis (INTG) Differential Diagnosis: Abrasion Differential Diagnosis: Abscess Differential Diagnosis: Retained Foreign Body X-Ray, Labs, Meds, VS Vital Signs Date Time Temp Pulse Resp B/P (MAP) Pulse Ox O2 Delivery O2 Flow Rate FiO2 05/14/24 16:27 98.3 103 17 121/85 (97) 100 Lab Test 05/14/24 19:26 Range/Units White Blood Count 11.4 #H 4.4-10.8 10^3/uL Red Blood Count 4.48 L 4.5-5.90 10^6/uL Hemoglobin 13.5 13.5-17.5 g/dL Hematocrit 40.2 #L 41.0-53.0 % Mean Corpuscular Volume 89.6 80.0-100.0 fL Mean Corpuscular Hemoglobin 30.2 28.0-32.0 pg Mean Corpuscular Hemoglobin Concent 33.7 32.0-36.0 g/dL Red Cell Distribution Width 13.5 11.8-14.3 % Platelet Count 261 140-450 10^3/uL Mean Platelet Volume 6.8 L 6.9-10.8 fL Neutrophils (%) (Auto) 92.8 H 37.0-80.0 % Lymphocytes (%) (Auto) 4.3 L 10.0-50.0 % Monocytes (%) (Auto) 2.4 0.0-12.0 % Eosinophils (%) (Auto) 0.2 0.0-7.0 % Basophils (%) (Auto) 0.3 0.0-2.0 % Neutrophils # (Auto) 10.6 H 1.6-8.6 10 ^3/uL Lymphocytes # (Auto) 0.5 0.4-5.4 10 ^3/uL Monocytes # (Auto) 0.3 0-1.3 10 ^3/uL Eosinophils # (Auto) 0 0-0.8 10 ^3/uL Basophils # (Auto) 0 0-0.2 10 ^3/uL Nucleated Red Blood Cells 0.0 % Sodium Level 137 136-145 mmol/L Potassium Level 3.9 3.5-5.1 mmol/L Chloride Level 109 H 98-107 mmol/L Carbon Dioxide Level 21 20-31 mmol/L Anion Gap 7 5-15 Blood Urea Nitrogen 15 9-23 mg/dL Creatinine 0.77 0.700-1.30 mg/dL Glomerular Filtration Rate Calc 114 >90 mL/min BUN/Creatinine Ratio 19.5 10.0-20.0 Serum Glucose 99 74-106 mg/dL Lactic Acid Level 0.7 0.4-2.0 mmol/L Calcium Level 9.2 8.7-10.4 mg/dL Current Medications Medications (Trade) Dose Ordered Sig/Isis Route Start Time Stop Time Status Last Admin Ceftriaxone Sodium 50 ml @ 100 mls/hr ONCE ONCE IV 05/14/24 19:00 05/14/24 19:29 DC 05/14/24 19:54 Clindamycin Phosphate 50 ml @ 50 mls/hr ONCE ONCE IV 05/14/24 19:00 05/14/24 19:59 DC 05/14/24 19:54 Acetaminophen (Tylenol Tablet) 650 mg ONCE ONCE PO 05/14/24 19:00 05/14/24 19:01 DC 05/14/24 19:05 Ondansetron HCl (Zofran Po) 4 mg ONCE ONCE PO 05/14/24 19:00 05/14/24 19:01 DC 05/14/24 19:05 Sodium Chloride 500 ml @ 500 mls/hr Q1H ONCE IV 05/14/24 19:00 05/14/24 19:59 DC 05/14/24 20:14 CBC from previous ER visit today reviewed-WBC 16.7 BMP from previous ER visit reviewed today-without any significant abnormalities CBC reordered BMP reordered Lactic acid ordered Blood cultures ordered Hep-Lock IV ordered Clindamycin 900 mg IV ordered Rocephin 1 g IV ordered NS 500 mg IV ordered Zofran 4 mg p.o. ordered Tylenol 650 mg p.o. ordered Methamphetamine/cannabis/smoking cessation discussed and advised Patient is homeless with hx of methamphetamine abuse and has been on oral clindamycin x 5 days Patient admitted to hospitalist for abscess of left forearm/need for IV antibiotics Time of 1ST Reevaluation: 18:22 Reevaluation 1ST: N/A Patient Education/Counseling: Diagnosis, Treatment, Prognosis, Need For Follow Up Family Education/Counseling: No Family Present Departure 1 Departure Time of Disposition: 18:42 Impression: Primary Impression: Abscess of left forearm Additional Impression: Methamphetamine abuse Disposition: 09 ADMITTED INPATIENT Condition: Stable Critical Care Note Critical Care Time?: No Stability Stability form required: No Heart Score Heart Score: Heart Score Response (Comments) Value History N/A 0 EKG N/A 0 Age N/A 0 Risk Factors N/A 0 Troponin N/A 0 Total 0 DEBBIE BARILLAS May 14, 2024 18:56
[2024-05-14] MEDS: ACETAMINOPHEN 325 MG TAB PO ONE (19:05)
[2024-05-14] MEDS: ONDANSETRON ODT 4 MG TAB PO ONE (19:05)
[2024-05-14 19:46] LABS: Basophils # (auto) 0 10 ^3/uL (0-0.2); Basophils % (auto) 0.3 % (0.0-2.0); Eosinophils # (auto) 0 10 ^3/uL (0-0.8); Eosinophils % (auto) 0.2 % (0.0-7.0); Hematocrit 40.2 % (41.0-53.0); Hemoglobin 13.5 g/dL (13.5-17.5); Lymphocytes # (auto) 0.5 10 ^3/uL (0.4-5.4); Lymphocytes % (auto) 4.3 % (10.0-50.0); Mean Corpuscular Hemoglobin 30.2 pg (28.0-32.0); Mean Corpuscular Hgb Conc. 33.7 g/dL (32.0-36.0); Mean Corpuscular Volume 89.6 fL (80.0-100.0); Monocytes # (auto) 0.3 10 ^3/uL (0-1.3); Monocytes % (auto) 2.4 % (0.0-12.0); Neutrophils # (auto) 10.6 10 ^3/uL (1.6-8.6); Neutrophils % (auto) 92.8 % (37.0-80.0); Platelet Count (auto) 261 10^3/uL (140-450); Red Blood Cells 4.48 10^6/uL (4.5-5.90); Red Cell Distribution Width 13.5 % (11.8-14.3); White Blood Cell 11.4 10^3/uL (4.4-10.8)
[2024-05-14] MEDS: CLINDAMYCIN 900MG IV 50 ML IV ONE (19:54)
[2024-05-14] MEDS: cefTRIAXone 1GM/50ML D5W 50 ML IV ONE (19:54)
[2024-05-14 19:56] LABS: Chloride 109 mmol/L (98-107); Potassium 3.9 mmol/L (3.5-5.1); Sodium 137 mmol/L (136-145)
[2024-05-14 19:57] LABS: Anion Gap 7 (5-15); Calcium 9.2 mg/dL (8.7-10.4); Carbon Dioxide 21 mmol/L (20-31)
[2024-05-14 20:02] LABS: BUN/Creatinine Ratio 19.5 (10.0-20.0); Blood Urea Nitrogen 15 mg/dL (9-23); Glucose 99 mg/dL (74-106)
[2024-05-14] MEDS: SODIUM CHLORIDE 0.9% 500 ML IV ONE (20:14)
[2024-05-14] MEDS ORDERED: MORPHINE SULFATE INJ 2 MG/ml SYRG IV PRN ×2 (21:15)
[2024-05-14] MEDS ORDERED: ACETAMINOPHEN 325 MG TAB PO PRN (21:15)
[2024-05-14] MEDS ORDERED: NITROGLYCERIN 0.4 MG SL TAB SL PRN (21:15)
[2024-05-14] MEDS: SODIUM CHLOR 0.9% PF (SALINE LOCK) 10ML VIAL/SYR IV SCH (21:29)
--- NOTE | 2024-05-14 22:49 | DVHHPRES ---
History of Present Illness Resident Creating Document: SHEEBA RAMSEY RESIDENT History of Present Illness CAITLIN CANDELARIA 44 years old male with a PMH of HTN presented to the ED with the chief complaints of left hand swelling since day prior to admission. Patient reported has been experiencing redness, swelling and pain which is associated with low-grade fever, nausea, chills vomiting and mild dizziness. Patient reported has been seen this morning in ER but they discharged again he came back due to worsening of symptoms. My assessment patient denies SOB, chest pain, headache, abdominal pain, and other associated symptoms Cardiovascular: HTN Past Surgical History: None Family History: None Past Social History Homeless. Smokes 1 pack per day, occasional alcohol and marijuana abuse Review of Systems Constitutional: Yes: Fever, Chills, Weakness, Malaise Eyes: No: Pain, Vision change, Conjunctivae inflammation, Eyelid inflammation, Other, Redness ENT: No: Ear pain, Ear discharge, Nose pain, Nose discharge, Nose congestion, Mouth pain, Mouth swelling, Throat pain, Throat swelling, Other Respiratory: No: Cough, Dry, Shortness of breath, SOB with excertion, Wheezing, Hemoptysis, Pleuritic Pain, Sputum, Wheezing, Other Cardiovascular: No: Chest Pain, Palpitations, Orthopnea, Paroxysmal Noc. Dyspnea, Edema, Lt Headedness, Other Gastrointestinal: Nausea, Vomiting Genitourinary: No Dysuria, No Frequency, No Incontinence, No Hematuria, No Retention, No Other Musculoskeletal: No: other, neck pain, shoulder pain, arm pain, back pain, hand pain, leg pain, foot pain Skin: Other (Swelling on left hand dorsum) Neurological: No: Weakness, Numbness, Incoordination, Change in speech, Confusion, Seizures, Other Allergies: Coded Allergies: NO KNOWN ALLERGIES (Unverified , 01/13/20) Medications Current Medications Medications Dose Ordered Sig/Isis Route Start Time Stop Time Status Last Admin Dose Admin Sodium Chloride 10 ml Q8HR IV 05/14/24 22:00 05/14/24 21:29 10 ML Ondansetron HCl 4 mg Q4HP PRN IV 05/14/24 21:15 Acetaminophen 650 mg Q6HP PRN PO 05/14/24 21:15 Morphine Sulfate 2 mg Q4HPRN PRN IV 05/14/24 21:15 Nitroglycerin 0.4 mg Q5MINP PRN SL 05/14/24 21:15 Morphine Sulfate 2 mg Q30M PRN IV 05/14/24 21:15 Ceftriaxone Sodium 50 ml @ 100 mls/hr DAILY@2200 IV 05/15/24 22:00 Clindamycin Phosphate 50 ml @ 50 mls/hr Q8HR IV 05/15/24 06:00 Exam Vital Signs Vital Signs Date Time Temp Pulse Resp B/P (MAP) Pulse Ox O2 Delivery O2 Flow Rate FiO2 05/14/24 21:13 98.5 98 17 105/70 (82) 100 98.5 Exam Pt is lying on bed General Appearance: Oriented X2, in mild distress HEENT: Atraumatic, Mucous membranes moist/pink Respiratory: Clear to auscultation, Normal air movement, No added sounds Cardiovascular: Regular rate, Normal S1, Normal S2, No murmurs Abdominal: Active bowel sounds, Soft, no distention, no tenderness Extremities: No edema, Normal pulses, No tenderness/swelling Skin: Erythematous, swollen, warm, tender swelling on left hand dorsum Neuro: Normal speech, sensorimotor deficits none Nurse was there as sharperone during examination Labs/Xrays Labs Test 05/14/24 19:26 Range/Units White Blood Count 11.4 #H 4.4-10.8 10^3/uL Red Blood Count 4.48 L 4.5-5.90 10^6/uL Hemoglobin 13.5 13.5-17.5 g/dL Hematocrit 40.2 #L 41.0-53.0 % Mean Corpuscular Volume 89.6 80.0-100.0 fL Mean Corpuscular Hemoglobin 30.2 28.0-32.0 pg Mean Corpuscular Hemoglobin Concent 33.7 32.0-36.0 g/dL Red Cell Distribution Width 13.5 11.8-14.3 % Platelet Count 261 140-450 10^3/uL Mean Platelet Volume 6.8 L 6.9-10.8 fL Neutrophils (%) (Auto) 92.8 H 37.0-80.0 % Lymphocytes (%) (Auto) 4.3 L 10.0-50.0 % Monocytes (%) (Auto) 2.4 0.0-12.0 % Eosinophils (%) (Auto) 0.2 0.0-7.0 % Basophils (%) (Auto) 0.3 0.0-2.0 % Neutrophils # (Auto) 10.6 H 1.6-8.6 10 ^3/uL Lymphocytes # (Auto) 0.5 0.4-5.4 10 ^3/uL Monocytes # (Auto) 0.3 0-1.3 10 ^3/uL Eosinophils # (Auto) 0 0-0.8 10 ^3/uL Basophils # (Auto) 0 0-0.2 10 ^3/uL Nucleated Red Blood Cells 0.0 % Sodium Level 137 136-145 mmol/L Potassium Level 3.9 3.5-5.1 mmol/L Chloride Level 109 H 98-107 mmol/L Carbon Dioxide Level 21 20-31 mmol/L Anion Gap 7 5-15 Blood Urea Nitrogen 15 9-23 mg/dL Creatinine 0.77 0.700-1.30 mg/dL Glomerular Filtration Rate Calc 114 >90 mL/min BUN/Creatinine Ratio 19.5 10.0-20.0 Serum Glucose 99 74-106 mg/dL Lactic Acid Level 0.7 0.4-2.0 mmol/L Calcium Level 9.2 8.7-10.4 mg/dL Assessment/Plan Assessment/Plan # ? Acute toxic metabolic encephalopathy # ? sepsis due to abscess # left forearm dorsal abscess -currently on clindamycin and Rocephin -ordered blood cultures -monitor lab -given IVF -ordered lactic acid # tobacco dependence # tobacco abuse disorder # former methamphetamine abuse -given counseling regarding cessation for 17 minutes -consider nicotine patch SCDs for now No GI PPX Regular diet Goals of care discussed with the patient for more than 27 minutes: Full code status Case management discussed with Dr. Garcias, patient and nurse Plan discussed with: Patient My Orders Orders - SHEEBA RAMSEY RESIDENT Procedure Category Date Status Time Admit ADMIT 05/14/24 Transmitted 21:03 Allergies ARIADNA 05/14/24 In Process 21:03 Code Status CODE 05/14/24 Transmitted 21:03 Sodium Chloride Lock PHA 05/14/24 In Process (Saline Lock Ns) 22:00 Ondansetron Hcl PHA 05/14/24 In Process (Zofran) 21:15 Complete Blood Count LAB 05/15/24 Verified 04:00 Comprehensive LAB 05/15/24 Verified Metabolic Panel 04:00 Acetaminophen Tablet PHA 05/14/24 In Process (Tylenol Tablet) 21:15 Morphine Sulfate PHA 05/14/24 In Process Injection 21:15 Nitroglycerin PHA 05/14/24 In Process Sublingual (Ntrostat 21:15 Morphine Sulfate PHA 05/14/24 In Process Injection 21:15 Oxygen By Nasal RT 05/14/24 Transmitted Cannula 21:03 Stat Ekg For Chest ARIADNA 05/14/24 In Process Pain 21:03 Notify Of Changes ARIADNA 05/14/24 In Process From Base 21:03 Gold Charmer For ARIADNA 05/14/24 In Process 24 Hours 21:03 Emergency Dysrhythmia ARIADNA 05/14/24 In Process Protocol 21:03 Rhythm Strips Once ARIADNA 05/14/24 In Process Every Shift 21:03 Comprehensive LAB 05/14/24 Logged Metabolic Panel 22:16 Drug Screen LAB 05/14/24 Logged 22:16 Hemoglobin A1c LAB 05/14/24 Logged 22:16 Vitamin D, 25-Hydroxy LAB 05/14/24 Logged 22:16 Vitamin B12 LAB 05/14/24 Logged 22:16 Urinalysis LAB 05/14/24 Logged 22:16 Thyroid Stimulating LAB 05/14/24 Logged Hormone 22:16 PTPTT LAB 05/15/24 Verified 04:00 Chest Xray 1 View XY 05/14/24 Logged 22:16 Hiv 1&2 Antibody LAB 05/14/24 Logged 22:16 Acute Hepatitis Panel LAB 05/14/24 Logged 22:16 Lactic Acid W/ Reflex LAB 05/14/24 Logged Order 22:16 Complete Blood Count LAB 05/14/24 Logged 22:16 Ceftriaxone 1gm/50ml PHA 05/15/24 In Process D5w (Rocephin) 22:00 Clindamycin 300mg Iv PHA 05/15/24 In Process (Cleocin Iv) 06:00 Date of Service: May 14, 2024 Billing Provider: KIKO GARCIAS MD Common Visit Codes: [id number] INP/OBS CARE (HIGH) SHEEBA RAMSEY RESIDENT May 14, 2024 22:49 KIKO GARCIAS MD May 15, 2024 09:33
[2024-05-14 23:07] VITALS: PULSE 89; RESP 18; O2SAT 100
[2024-05-14 23:50] VITALS: BP 105/70; PULSE 68; RESP 16; TEMP 98; O2SAT 96
[2024-05-15] VITALS (8 sets, daily range): BP systolic 99–117; BP diastolic 64–72; PULSE 68–82; RESP 17–20; TEMP 97.8–98.9; O2SAT 92–97
--- NOTE | 2024-05-15 00:02 | DVH ---
EXAMINATION: Chest x-ray one view CLINICAL HISTORY: sob COMPARISON: None FINDINGS: No dominant consolidation. The costophrenic angles appear clear. No sizable pleural effusions or pne umothorax identified. The cardiomediastinal silhouette appears within normal limits given technique. IMPRESSION: No acute cardiopulmonary finding as visualized.
[2024-05-15] MEDS: ONDANSETRON HCL 4 MG/2 ML VIAL IV PRN (00:13)
[2024-05-15 05:04] LABS: Basophils # (auto) 0 10 ^3/uL (0-0.2); Basophils % (auto) 0.2 % (0.0-2.0); Eosinophils # (auto) 0 10 ^3/uL (0-0.8); Eosinophils % (auto) 0.7 % (0.0-7.0); Hematocrit 37.4 % (41.0-53.0); Hemoglobin 12.5 g/dL (13.5-17.5); Lymphocytes # (auto) 0.8 10 ^3/uL (0.4-5.4); Lymphocytes % (auto) 11.4 % (10.0-50.0); Mean Corpuscular Hemoglobin 30.2 pg (28.0-32.0); Mean Corpuscular Hgb Conc. 33.5 g/dL (32.0-36.0); Mean Corpuscular Volume 90.1 fL (80.0-100.0); Monocytes # (auto) 0.3 10 ^3/uL (0-1.3); Monocytes % (auto) 5.1 % (0.0-12.0); Neutrophils # (auto) 5.6 10 ^3/uL (1.6-8.6); Neutrophils % (auto) 82.6 % (37.0-80.0); Platelet Count (auto) 238 10^3/uL (140-450); Red Blood Cells 4.15 10^6/uL (4.5-5.90); Red Cell Distribution Width 13.1 % (11.8-14.3); White Blood Cell 6.8 10^3/uL (4.4-10.8)
[2024-05-15] MEDS: CLINDAMYCIN 300MG IV 50 ML IV SCH (05:11)
[2024-05-15 05:19] LABS: INR 1.03 (0.9-1.15); Partial Thromboplastin Time 28.5 SEC (24.5-34.5); Prothrombin Time 10.9 sec (9.3-11.8)
[2024-05-15 05:23] LABS: Alkaline Phosphatase 98 U/L (46-116); Anion Gap 6 (5-15); Calcium 8.7 mg/dL (8.7-10.4); Carbon Dioxide 24 mmol/L (20-31); Chloride 109 mmol/L (98-107); Glucose 87 mg/dL (74-106); Potassium 3.3 mmol/L (3.5-5.1); Sodium 139 mmol/L (136-145)
[2024-05-15 05:24] LABS: Albumin 3.6 g/dL (3.2-4.8); Aspartate Aminotransferase 14 U/L (13-40); Bilirubin, Total 0.5 mg/dL (0.2-1.0); Blood Urea Nitrogen 17 mg/dL (9-23); Total Protein 5.8 g/dL (5.7-8.2)
[2024-05-15 05:36] LABS: Alanine Aminotransferase < 9 U/L (7-40)
[2024-05-15] MEDS: POTASSIUM CHL 20 Meq TABLET PO ONE (06:50)
[2024-05-15 14:05] LABS: Urine Bacteria None Seen /hpf (None Seen)
[2024-05-15 14:18] LABS: Urine Blood Negative /uL (Negative); Urine Clarity Clear (Clear); Urine Color Yellow (Yellow); Urine Mucus FEW (None Seen); Urine Protein, UAD Negative (Negative); Urine Specific Gravity 1.031 (1.001-1.035); Urine Urobilinogen Normal (Negative); Urine WBC 2 /hpf (0 - 3)
[2024-05-15 14:24] LABS: Amphetamine Screen, Urine Pos (NEGATIVE); Barbiturate Scree,Urine Neg (NEGATIVE); Benzodiazephine Screen, Urine Neg (NEGATIVE)
[2024-05-15 14:25] LABS: Cannabinoid Screen, Urine Neg (NEGATIVE); Cocaine Screen, Urine Neg (NEGATIVE); Opiate Scree,Urine Neg (NEGATIVE); Phencyclidine Screen, Urine Neg (NEGATIVE)
--- NOTE | 2024-05-15 15:22 | DVHPN2 ---
Subjective Left arm pain. Reviewed: Care Plan, H&P, Labs, Medications Changes from previous H/P or p: No Changes General: Per HPI Eyes: No Pain, No Vision change, No Conjunctivae inflammation, No Eyelid inflammation, No Other, No Redness ENT: No Ear pain, No Ear discharge, No Nose pain, No Nose discharge, No Nose congestion, No Mouth pain, No Mouth swelling, No Throat pain, No Throat swelling, No Other Cardiovascular: No Chest Pain, No Palpitations, No Orthopnea, No Paroxysmal Noc. Dyspnea, No Edema, No Lt Headedness, No Other Respiratory: No Cough, No Dry, No Shortness of breath, No SOB with excertion, No Wheezing, No Hemoptysis, No Pleuritic Pain, No Sputum, No Other Gastrointestinal: Nausea, Vomiting Genitourinary: No Dysuria, No Frequency, No Incontinence, No Hematuria, No Retention, No Other Musculoskeletal: No other, No neck pain, No shoulder pain, No arm pain, No back pain, No hand pain, No leg pain, No foot pain Skin: Other (Swelling on left hand dorsum) Objective Vitals Vital Signs Date Time Temp Pulse Resp B/P (MAP) Pulse Ox O2 Delivery O2 Flow Rate FiO2 05/15/24 13:00 98.0 78 20 103/72 (82) 96 98.0 05/15/24 08:00 Room Air* 0 21 Intake/Output Intake and Output 05/15/24 07:00 Intake Total 650 ml Balance 650 ml Intake Oral 0 ml IV Total 650 ml # Voids 1 General Appearance: Alert, Oriented X3, Cooperative, No acute distress HEENT: Atraumatic, PERRLA Lungs: Clear to auscultation, Normal air movement Cardiovascular: Normal S1, Normal S2 Abdomen: Normal bowel sounds, Soft Genitourinary: No Apparent Abnormalities Musculoskeletal: Normal sensory function, Normal motor function Extremities: Other (Left arm swelling, questionable abscess) Neuro: Normal gait, Normal speech Psych/Mental Status: Mental status NL, Mood NL Medications Current Medications Medications Dose Ordered Sig/Isis Route Start Time Stop Time Status Last Admin Dose Admin Sodium Chloride 10 ml Q8HR IV 05/14/24 22:00 05/15/24 13:43 10 ML Ondansetron HCl 4 mg Q4HP PRN IV 05/14/24 21:15 05/15/24 00:13 4 MG Acetaminophen 650 mg Q6HP PRN PO 05/14/24 21:15 Morphine Sulfate 2 mg Q4HPRN PRN IV 05/14/24 21:15 Nitroglycerin 0.4 mg Q5MINP PRN SL 05/14/24 21:15 Morphine Sulfate 2 mg Q30M PRN IV 05/14/24 21:15 Ceftriaxone Sodium 50 ml @ 100 mls/hr DAILY@2200 IV 05/15/24 22:00 Clindamycin Phosphate 50 ml @ 50 mls/hr Q8HR IV 05/15/24 06:00 05/15/24 13:43 50 MLS/HR Laboratory Results Laboratory Tests 05/15/24 04:22 Chemistry Test 05/14/24 19:26 05/15/24 04:22 Calcium Level 9.2 mg/dL (8.7-10.4) 8.7 mg/dL (8.7-10.4) Albumin 3.6 g/dL (3.2-4.8) Total Protein 5.8 g/dL (5.7-8.2) Coagulation Test 05/15/24 04:22 Prothrombin Time 10.9 sec (9.3-11.8) Prothrombin Time INR 1.03 (0.9-1.15) Activated Partial Thromboplast Time 28.5 SEC (24.5-34.5) LFT Test 05/15/24 04:22 Alanine Aminotransferase (ALT) < 9 U/L (7-40) Alkaline Phosphatase 98 U/L (46-116) Aspartate Amino Transferase (AST) 14 U/L (13-40) Total Bilirubin 0.5 mg/dL (0.2-1.0) HgA1c, TSH Test 05/15/24 04:22 Hemoglobin A1c 5.7 % A1C (<5.7) Thyroid Stimulating Hormone (TSH) 0.41 uIU/mL (0.55-4.78) L Urinalysis Test 05/15/24 14:04 Urine Color Yellow (Yellow) Urine Clarity Clear (Clear) Urine pH 5.0 (5.0-9.0) Urine Specific [place] 1.031 (1.001-1.035) Urine Protein Negative (Negative) Urine Ketones Trace (Negative) Urine Blood Negative /uL (Negative) Urine Nitrite Negative (Negative) Urine Bilirubin Negative (Negative) Urine Urobilinogen Normal mg/dL (Negative) Urine Leukocyte Esterase Negative /uL (Negative) Urine RBC 1 /hpf (0 - 3) Urine WBC 2 /hpf (0 - 3) Urine Squamous Epithelial Cells Few /hpf (<5) Urine Bacteria None seen /hpf (None Seen) Urine Mucus Few (None Seen) Urine Glucose Normal mg/dL (Normal) Labs and/or images reviewed: Labs reviewed by me, Image(s) reviewed by me Assessment/Plan Assessment/Plan Impression: -left arm cellulitis, rule out abscess -history of amphetamine use -hypokalemia Plan: -toxicology screen -x-ray left forearm -continue antibiotic therapy with Rocephin and clindamycin -pain management -potassium replacement -repeat labs in a.m. Total time spent with patient discussing and formulating plan of care: 35 minutes. This medical document was created using an electronic medical record system with [employer] dictation system. Although this document has been carefully reviewed, there may still be some phonetic and typographical errors. These areas are purely typographical due to imperfections of the software programs, and do not reflect any compromise in the patient's medical care. Plan discussed with: Patient, Other (RN ) My Orders Orders - CRISTO HERNANDEZ NP Procedure Category Date Status Time Basic Metabolic Panel LAB 05/16/24 Verified 04:00 Complete Blood Count LAB 05/16/24 Verified 04:00 L Forearm Xray XY 05/15/24 Logged 15:14 Date of Service: May 15, 2024 Billing Provider: CRISTO HERNANDEZ NP Common Visit Codes: [id number] INP/OBS CARE(HIGH) CRISTO HERNANDEZ NP May 15, 2024 15:22
--- NOTE | 2024-05-15 16:30 | DVH ---
CLINICAL INDICATION: Rule Out foreign body. Questionable abscess TECHNIQUE: 2 XY L FOREARM XRAY Comparison: None FINDINGS/IMPRESSION: Subtle cortical irregularity at the coronoid may represent an age indeterminate fracture versus chron ic degenerative or posttraumatic change. 0.5 cm metallic foreign body in the soft tissues of the mid to distal forearm. Diffuse soft-tissue swelling and edema most prominent in the antecubital fossa region.
[2024-05-15] MEDS: cefTRIAXone 1GM/50ML D5W 50 ML IV SCH (21:10)
[2024-05-16] VITALS (8 sets, daily range): BP systolic 98–122; BP diastolic 58–67; PULSE 62–72; RESP 16–20; TEMP 97.5–99.2; O2SAT 94–100
[2024-05-16 06:45] LABS: Basophils # (auto) 0 10 ^3/uL (0-0.2); Basophils % (auto) 0.5 % (0.0-2.0); Eosinophils # (auto) 0.1 10 ^3/uL (0-0.8); Eosinophils % (auto) 2.7 % (0.0-7.0); Hematocrit 39.8 % (41.0-53.0); Hemoglobin 13.4 g/dL (13.5-17.5); Lymphocytes # (auto) 1.2 10 ^3/uL (0.4-5.4); Lymphocytes % (auto) 24.9 % (10.0-50.0); Mean Corpuscular Hemoglobin 30.2 pg (28.0-32.0); Mean Corpuscular Hgb Conc. 33.7 g/dL (32.0-36.0); Mean Corpuscular Volume 89.6 fL (80.0-100.0); Monocytes # (auto) 0.5 10 ^3/uL (0-1.3); Monocytes % (auto) 10.7 % (0.0-12.0); Neutrophils % (auto) 61.2 % (37.0-80.0); Nucleated Red Blood Cells % 0.3 %; Platelet Count (auto) 252 10^3/uL (140-450); Red Blood Cells 4.44 10^6/uL (4.5-5.90); Red Cell Distribution Width 13.5 % (11.8-14.3)
[2024-05-16 06:46] LABS: Anion Gap 3 (5-15); Carbon Dioxide 27 mmol/L (20-31); Chloride 109 mmol/L (98-107); Potassium 3.9 mmol/L (3.5-5.1); Sodium 139 mmol/L (136-145)
[2024-05-16 06:47] LABS: Calcium 9.3 mg/dL (8.7-10.4)
[2024-05-16 06:52] LABS: Blood Urea Nitrogen 13 mg/dL (9-23); Glucose 99 mg/dL (74-106)
--- NOTE | 2024-05-16 09:39 | DVHPN2 ---
Subjective Left arm pain. Reviewed: Care Plan, H&P, Labs, Medications Changes from previous H/P or p: No Changes General: Per HPI Eyes: No Pain, No Vision change, No Conjunctivae inflammation, No Eyelid inflammation, No Other, No Redness ENT: No Ear pain, No Ear discharge, No Nose pain, No Nose discharge, No Nose congestion, No Mouth pain, No Mouth swelling, No Throat pain, No Throat swelling, No Other Cardiovascular: No Chest Pain, No Palpitations, No Orthopnea, No Paroxysmal Noc. Dyspnea, No Edema, No Lt Headedness, No Other Respiratory: No Cough, No Dry, No Shortness of breath, No SOB with excertion, No Wheezing, No Hemoptysis, No Pleuritic Pain, No Sputum, No Other Gastrointestinal: Nausea, Vomiting Genitourinary: No Dysuria, No Frequency, No Incontinence, No Hematuria, No Retention, No Other Musculoskeletal: No other, No neck pain, No shoulder pain, No arm pain, No back pain, No hand pain, No leg pain, No foot pain Skin: Other (Swelling on left hand dorsum) Objective Vitals Vital Signs Date Time Temp Pulse Resp B/P (MAP) Pulse Ox O2 Delivery O2 Flow Rate FiO2 05/16/24 08:12 97.5 62 18 100/60 (73) 94 97.5 05/15/24 20:00 Room Air* 0 21 Intake/Output Intake and Output 05/16/24 07:00 Intake Total 1415 ml Output Total 1000 ml Balance 415 ml Intake Oral 1265 ml IV Total 150 ml Output Urine Total 1000 ml # Voids 1 General Appearance: Alert, Oriented X3, Cooperative, No acute distress HEENT: Atraumatic, PERRLA Lungs: Clear to auscultation, Normal air movement Cardiovascular: Normal S1, Normal S2 Abdomen: Normal bowel sounds, Soft Genitourinary: No Apparent Abnormalities Musculoskeletal: Normal sensory function, Normal motor function Extremities: Other (Left arm swelling, questionable abscess) Neuro: Normal gait, Normal speech Psych/Mental Status: Mental status NL, Mood NL Medications Current Medications Medications Dose Ordered Sig/Isis Route Start Time Stop Time Status Last Admin Dose Admin Sodium Chloride 10 ml Q8HR IV 05/14/24 22:00 05/16/24 06:00 10 ML Ondansetron HCl 4 mg Q4HP PRN IV 05/14/24 21:15 05/15/24 00:13 4 MG Acetaminophen 650 mg Q6HP PRN PO 05/14/24 21:15 Morphine Sulfate 2 mg Q4HPRN PRN IV 05/14/24 21:15 Nitroglycerin 0.4 mg Q5MINP PRN SL 05/14/24 21:15 Morphine Sulfate 2 mg Q30M PRN IV 05/14/24 21:15 Ceftriaxone Sodium 50 ml @ 100 mls/hr DAILY@2200 IV 05/15/24 22:00 05/15/24 21:10 100 MLS/HR Clindamycin Phosphate 50 ml @ 50 mls/hr Q8HR IV 05/15/24 06:00 05/16/24 05:35 50 MLS/HR Laboratory Results Laboratory Tests 05/16/24 05:40 Chemistry Test 05/16/24 05:40 Calcium Level 9.3 mg/dL (8.7-10.4) Urinalysis Test 05/15/24 14:04 Urine Color Yellow (Yellow) Urine Clarity Clear (Clear) Urine pH 5.0 (5.0-9.0) Urine Specific [place] 1.031 (1.001-1.035) Urine Protein Negative (Negative) Urine Ketones Trace (Negative) Urine Blood Negative /uL (Negative) Urine Nitrite Negative (Negative) Urine Bilirubin Negative (Negative) Urine Urobilinogen Normal mg/dL (Negative) Urine Leukocyte Esterase Negative /uL (Negative) Urine RBC 1 /hpf (0 - 3) Urine WBC 2 /hpf (0 - 3) Urine Squamous Epithelial Cells Few /hpf (<5) Urine Bacteria None seen /hpf (None Seen) Urine Mucus Few (None Seen) Urine Glucose Normal mg/dL (Normal) Microbiology Microbiology Date/Time Source Procedure Growth Status 05/14/24 19:26 Blood Blood Culture - Preliminary NO GROWTH AFTER 24 HOURS OF INCUBATION. Resulted Labs and/or images reviewed: Labs reviewed by me, Image(s) reviewed by me Assessment/Plan Assessment/Plan Impression: -left arm cellulitis, rule out abscess -hypokalemia -illicit drug use: Amphetamines -foreign body object to left forearm Plan: -events: Discussed with patient findings of x-ray of the forearm. Patient denies IV drug use. States that he snorts his amphetamines. -x-ray left forearm : Foreign body noted to left forearm. -surgical consultation -continue antibiotic therapy with Rocephin and clindamycin -pain management -repeat labs in a.m. Total time spent with patient discussing and formulating plan of care: 35 minutes. This medical document was created using an electronic medical record system with [employer] dictation system. Although this document has been carefully reviewed, there may still be some phonetic and typographical errors. These areas are purely typographical due to imperfections of the software programs, and do not reflect any compromise in the patient's medical care. Plan discussed with: Patient, Other (RN) My Orders Orders - CRISTO HERNANDEZ NP Procedure Category Date Status Time L Forearm Xray XY 05/15/24 Resulted 15:14 * Surgical Consult CONS 05/16/24 Transmitted Date of Service: May 16, 2024 Billing Provider: CRISTO HERNANDEZ NP Common Visit Codes: [id number] INP/OBS CARE(HIGH) CRISTO HERNANDEZ NP May 16, 2024 09:39
[2024-05-16] MEDS ORDERED: ALPRAZolam 0.25 MG TAB PO PRN (09:45)
--- NOTE | 2024-05-16 14:38 | DVHPN2 ---
Progress Note Date Seen: May 16, 2024 Medical Necessity Reason Pt with a Central, PICC or Fol: No Objective vital signs Vital Sign Date Time Temp Pulse Resp B/P (MAP) Pulse Ox O2 Delivery O2 Flow Rate FiO2 05/16/24 12:38 97.7 63 19 98/58 (71) 100 97.7 05/16/24 08:10 Room Air* 0 21 Total Intake and Output 05/15/24 05/15/24 05/16/24 15:00 23:00 07:00 Intake Total 1240 ml 175 ml Output Total 300 ml 700 ml Balance 940 ml -525 ml medications Current Medications Medications Dose Ordered Sig/Isis Route Start Time Stop Time Status Last Admin Dose Admin Sodium Chloride 10 ml Q8HR IV 05/14/24 22:00 05/16/24 13:44 10 ML Ondansetron HCl 4 mg Q4HP PRN IV 05/14/24 21:15 05/15/24 00:13 4 MG Acetaminophen 650 mg Q6HP PRN PO 05/14/24 21:15 Nitroglycerin 0.4 mg Q5MINP PRN SL 05/14/24 21:15 Morphine Sulfate 2 mg Q30M PRN IV 05/14/24 21:15 Ceftriaxone Sodium 50 ml @ 100 mls/hr DAILY@2200 IV 05/15/24 22:00 05/15/24 21:10 100 MLS/HR Clindamycin Phosphate 50 ml @ 50 mls/hr Q8HR IV 05/15/24 06:00 05/16/24 13:40 50 MLS/HR Alprazolam 0.25 mg Q8HP PRN PO 05/16/24 09:45 Acetaminophen/ Codeine Phosphate 1 tab Q6HP PRN PO 05/16/24 09:45 laboratory and microbiology Laboratory Tests 05/16/24 05:40 Test 05/16/24 05:40 Range/Units Serum Glucose 99 74-106 mg/dL Problem List/Assessment/Plan Problem List/Assessment/Plan 05/16/24 has an abscess ondorsal aspect of lefty forearm, will proceed with I and D tomorrow, explained that the small metallic FB in the depth of the abscess will most likely not be removed Plan discussed with: Patient LANCE BRUSH MD May 16, 2024 14:38
[2024-05-17] VITALS (10 sets, daily range): BP systolic 98–122; BP diastolic 57–86; PULSE 64–82; RESP 12–21; TEMP 97.5–98.4; O2SAT 93–100
--- NOTE | 2024-05-17 08:07 | DVHPN2 ---
Subjective Left arm pain. Reviewed: Care Plan, H&P, Labs, Medications Changes from previous H/P or p: No Changes General: Per HPI Eyes: No Pain, No Vision change, No Conjunctivae inflammation, No Eyelid inflammation, No Other, No Redness ENT: No Ear pain, No Ear discharge, No Nose pain, No Nose discharge, No Nose congestion, No Mouth pain, No Mouth swelling, No Throat pain, No Throat swelling, No Other Cardiovascular: No Chest Pain, No Palpitations, No Orthopnea, No Paroxysmal Noc. Dyspnea, No Edema, No Lt Headedness, No Other Respiratory: No Cough, No Dry, No Shortness of breath, No SOB with excertion, No Wheezing, No Hemoptysis, No Pleuritic Pain, No Sputum, No Other Gastrointestinal: Nausea, Vomiting Genitourinary: No Dysuria, No Frequency, No Incontinence, No Hematuria, No Retention, No Other Musculoskeletal: No other, No neck pain, No shoulder pain, No arm pain, No back pain, No hand pain, No leg pain, No foot pain Skin: Other (Swelling on left hand dorsum) Objective Vitals Vital Signs Date Time Temp Pulse Resp B/P (MAP) Pulse Ox O2 Delivery O2 Flow Rate FiO2 05/17/24 05:00 98.3 82 16 98/57 (71) 96 98.3 05/16/24 20:00 Room Air* 0 21 Intake/Output Intake and Output 05/17/24 07:00 Intake Total 2110 ml Output Total 2000 ml Balance 110 ml Intake Oral 1960 ml IV Total 150 ml Output Urine Total 2000 ml General Appearance: Alert, Oriented X3, Cooperative, No acute distress HEENT: Atraumatic, PERRLA Lungs: Clear to auscultation, Normal air movement Cardiovascular: Normal S1, Normal S2 Abdomen: Normal bowel sounds, Soft Genitourinary: No Apparent Abnormalities Musculoskeletal: Normal sensory function, Normal motor function Extremities: Other (Left arm swelling, questionable abscess) Neuro: Normal gait, Normal speech Psych/Mental Status: Mental status NL, Mood NL Medications Current Medications Medications Dose Ordered Sig/Isis Route Start Time Stop Time Status Last Admin Dose Admin Sodium Chloride 10 ml Q8HR IV 05/14/24 22:00 05/17/24 05:37 10 ML Ondansetron HCl 4 mg Q4HP PRN IV 05/14/24 21:15 05/15/24 00:13 4 MG Acetaminophen 650 mg Q6HP PRN PO 05/14/24 21:15 Nitroglycerin 0.4 mg Q5MINP PRN SL 05/14/24 21:15 Morphine Sulfate 2 mg Q30M PRN IV 05/14/24 21:15 Ceftriaxone Sodium 50 ml @ 100 mls/hr DAILY@2200 IV 05/15/24 22:00 05/16/24 21:39 100 MLS/HR Clindamycin Phosphate 50 ml @ 50 mls/hr Q8HR IV 05/15/24 06:00 05/17/24 05:37 50 MLS/HR Alprazolam 0.25 mg Q8HP PRN PO 05/16/24 09:45 Acetaminophen/ Codeine Phosphate 1 tab Q6HP PRN PO 05/16/24 09:45 Laboratory Results Laboratory Tests 05/16/24 05:40 Urinalysis Test 05/15/24 14:04 Urine Color Yellow (Yellow) Urine Clarity Clear (Clear) Urine pH 5.0 (5.0-9.0) Urine Specific [place] 1.031 (1.001-1.035) Urine Protein Negative (Negative) Urine Ketones Trace (Negative) Urine Blood Negative /uL (Negative) Urine Nitrite Negative (Negative) Urine Bilirubin Negative (Negative) Urine Urobilinogen Normal mg/dL (Negative) Urine Leukocyte Esterase Negative /uL (Negative) Urine RBC 1 /hpf (0 - 3) Urine WBC 2 /hpf (0 - 3) Urine Squamous Epithelial Cells Few /hpf (<5) Urine Bacteria None seen /hpf (None Seen) Urine Mucus Few (None Seen) Urine Glucose Normal mg/dL (Normal) Microbiology Microbiology Date/Time Source Procedure Growth Status 05/14/24 19:26 Blood Blood Culture - Preliminary NO GROWTH AFTER 48 HOURS OF INCUBATION. Resulted Labs and/or images reviewed: Labs reviewed by me, Image(s) reviewed by me Assessment/Plan Assessment/Plan Impression: -left arm cellulitis, rule out abscess -hypokalemia -illicit drug use: Amphetamines -foreign body object to left forearm Plan: -events: No events overnight. Plans for I and D of left arm. -x-ray left forearm : Foreign body noted to left forearm. -surgical consultation -continue antibiotic therapy with Rocephin and clindamycin -pain management -repeat labs in a.m. Total time spent with patient discussing and formulating plan of care: 35 minutes. This medical document was created using an electronic medical record system with [employer] dictation system. Although this document has been carefully reviewed, there may still be some phonetic and typographical errors. These areas are purely typographical due to imperfections of the software programs, and do not reflect any compromise in the patient's medical care. Plan discussed with: Patient, Other (RN) My Orders Orders - CRISTO HERNANDEZ NP Procedure Category Date Status Time * Surgical Consult CONS 05/16/24 Transmitted Alprazolam Tablet PHA 05/16/24 In Process (Xanax Tablet) 09:45 Acetaminophen/Codeine PHA 05/16/24 In Process Tablet (Tylenol W/ 09:45 Type And Screen BBK 05/17/24 In Process 06:31 Date of Service: May 17, 2024 Billing Provider: CRISTO HERNANDEZ NP Common Visit Codes: [id number] INP/OBS CARE(HIGH) CRISTO HERNANDEZ NP May 17, 2024 08:07
[2024-05-17 08:56] LABS: Hepatitis B Surface Antigen Negative (Negative)
[2024-05-17 09:16] LABS: Hepatitis A Ab IgM Negative
[2024-05-17 09:17] LABS: Hepatitis B Core IgM Negative
[2024-05-17 09:18] LABS: Hepatitis C Antibody Negative (Negative)
[2024-05-17] MEDS ORDERED: DexAMETHasone SOD PHOS 10MG/1ML VIAL INJ ONE (12:36)
[2024-05-17] MEDS ORDERED: MIDAZOLAM HCL 2MG/2ML 2ml VIAL (1mg/ml) ONE (12:36)
[2024-05-17] MEDS ORDERED: fentaNYL CITRATE 100 MCG/2 ML VL ONE (12:36)
[2024-05-17] MEDS ORDERED: GLYCOPYRROLATE 0.2 MG/ML 1ML VIAL ONE (12:37)
[2024-05-17] MEDS ORDERED: PROPOFOL 10 MG/ML 20 ML IV ONE (12:37)
[2024-05-17] MEDS ORDERED: ONDANSETRON HCL 4 MG/2 ML VIAL ONE (12:37)
[2024-05-17] MEDS ORDERED: LIDOCAINE 2% (LOCAL ANESTH.) PF 5ml SDV ONE (12:37)
[2024-05-17] MEDS: ceFAZolin 2 GM/D5W100ml 100 ML IV ONE (13:20)
[2024-05-17] MEDS: LIDOCAINE W/ EPINEPHRINE 1% 20ML VIAL ONE (13:48)
[2024-05-17] MEDS: BUPIVACAINE HCL 50 ML ONE (13:49)
[2024-05-17] MEDS ORDERED: ceFAZolin 1GM VL ONE (14:02)
[2024-05-17] MEDS ORDERED: KETAMINE 50mg/ML 1ml syringe ONE (14:07)
--- NOTE | 2024-05-17 14:30 | DVHOP2 ---
Operative Report - 2 Report Details Date: 05/17/24 Preop Diagnosis: abscess left forearm Postop Diagnosis: abscess left forearm Surgeon: Dr. Washington Farias Blow Down Operator: Ean Schwartz GRAND SCR[employer]EFlorentino[employer] Anesthesiologist: Dr. Bejarano Anesthesia: Mac Consent: The patient was informed of the risks and benefits of the procedure. These include but are not limited to complications of anesthesia, postoperative infection, incomplete relief of symptoms, recurrence of symptoms, damage to blood vessels, nerves and tendons, deep venous thrombosis, pulmonary embolism and possible need for repeat surgery in the future. Name of Procedure Performed Incision and drainage of left forearm Procedure Details Procedure Details: Under the supervision of Dr. Farias the patient was placed in a supine position. Under adequate anesthesia the patient was prepped and draped. The left forearm was infiltrated with 1:1 1% lidocaine and 0.25%. An incision was made to the left forearm and purulent material expelled , which was cultured. The wound was than irrigated with normal saline and Ancef. The wound was than packed with 1/4 inch iodoform. Dressing applied after correct sponge needle and blade count. Patient was transferred to recovery without incident. Specimen: cultures x 3 Condition Good Disposition Still a Patient EAN SCHWARTZ NP May 17, 2024 14:30
[2024-05-17] MEDS ORDERED: HYDROmorphone HCL 2 MG/ML VL/or syr IV PRN (14:45)
[2024-05-17] MEDS: ONDANSETRON HCL 4 MG/2 ML VIAL IV ONE (14:45)
[2024-05-18] VITALS (7 sets, daily range): BP systolic 95–113; BP diastolic 57–71; PULSE 60–95; RESP 18–19; TEMP 96.6–98.2; O2SAT 95–98
[2024-05-18 06:16] LABS: Anion Gap 9 (5-15); Carbon Dioxide 24 mmol/L (20-31); Chloride 108 mmol/L (98-107); Potassium 4.9 mmol/L (3.5-5.1); Sodium 141 mmol/L (136-145)
[2024-05-18 06:17] LABS: Calcium 9.8 mg/dL (8.7-10.4)
[2024-05-18 06:22] LABS: BUN/Creatinine Ratio 34.6 (10.0-20.0); Glucose 113 mg/dL (74-106)
[2024-05-18 06:29] LABS: Blood Urea Nitrogen 27 mg/dL (9-23)
--- NOTE | 2024-05-18 08:57 | DVHPN2 ---
Subjective Left arm pain. Reviewed: Care Plan, H&P, Labs, Medications Changes from previous H/P or p: No Changes General: Per HPI Eyes: No Pain, No Vision change, No Conjunctivae inflammation, No Eyelid inflammation, No Other, No Redness ENT: No Ear pain, No Ear discharge, No Nose pain, No Nose discharge, No Nose congestion, No Mouth pain, No Mouth swelling, No Throat pain, No Throat swelling, No Other Cardiovascular: No Chest Pain, No Palpitations, No Orthopnea, No Paroxysmal Noc. Dyspnea, No Edema, No Lt Headedness, No Other Respiratory: No Cough, No Dry, No Shortness of breath, No SOB with excertion, No Wheezing, No Hemoptysis, No Pleuritic Pain, No Sputum, No Other Gastrointestinal: Nausea, Vomiting Genitourinary: No Dysuria, No Frequency, No Incontinence, No Hematuria, No Retention, No Other Musculoskeletal: No other, No neck pain, No shoulder pain, No arm pain, No back pain, No hand pain, No leg pain, No foot pain Skin: Other (Swelling on left hand dorsum) Objective Vitals Vital Signs Date Time Temp Pulse Resp B/P (MAP) Pulse Ox O2 Delivery O2 Flow Rate FiO2 05/18/24 08:20 98.2 60 18 100/60 (73) 95 98.2 05/17/24 20:00 Room Air* 0 21 Intake/Output Intake and Output 05/18/24 07:00 Intake Total 1360 ml Output Total 1400 ml Balance -40 ml Intake Oral 1260 ml IV Total 100 ml Output Urine Total 1400 ml # Voids 3 General Appearance: Alert, Oriented X3, Cooperative, No acute distress HEENT: Atraumatic, PERRLA Lungs: Clear to auscultation, Normal air movement Cardiovascular: Normal S1, Normal S2 Abdomen: Normal bowel sounds, Soft Genitourinary: No Apparent Abnormalities Musculoskeletal: Normal sensory function, Normal motor function Extremities: Other (Left arm swelling, questionable abscess) Neuro: Normal gait, Normal speech Psych/Mental Status: Mental status NL, Mood NL Medications Current Medications Medications Dose Ordered Sig/Isis Route Start Time Stop Time Status Last Admin Dose Admin Sodium Chloride 10 ml Q8HR IV 05/14/24 22:00 05/18/24 06:00 10 ML Ondansetron HCl 4 mg Q4HP PRN IV 05/14/24 21:15 05/15/24 00:13 4 MG Acetaminophen 650 mg Q6HP PRN PO 05/14/24 21:15 Nitroglycerin 0.4 mg Q5MINP PRN SL 05/14/24 21:15 Morphine Sulfate 2 mg Q30M PRN IV 05/14/24 21:15 Ceftriaxone Sodium 50 ml @ 100 mls/hr DAILY@2200 IV 05/15/24 22:00 05/17/24 23:00 100 MLS/HR Clindamycin Phosphate 50 ml @ 50 mls/hr Q8HR IV 05/15/24 06:00 05/18/24 05:44 50 MLS/HR Alprazolam 0.25 mg Q8HP PRN PO 05/16/24 09:45 Acetaminophen/ Codeine Phosphate 1 tab Q6HP PRN PO 05/16/24 09:45 Laboratory Results Laboratory Tests 05/18/24 05:20 Chemistry Test 05/18/24 05:20 Calcium Level 9.8 mg/dL (8.7-10.4) Urinalysis Test 05/15/24 14:04 Urine Color Yellow (Yellow) Urine Clarity Clear (Clear) Urine pH 5.0 (5.0-9.0) Urine Specific [place] 1.031 (1.001-1.035) Urine Protein Negative (Negative) Urine Ketones Trace (Negative) Urine Blood Negative /uL (Negative) Urine Nitrite Negative (Negative) Urine Bilirubin Negative (Negative) Urine Urobilinogen Normal mg/dL (Negative) Urine Leukocyte Esterase Negative /uL (Negative) Urine RBC 1 /hpf (0 - 3) Urine WBC 2 /hpf (0 - 3) Urine Squamous Epithelial Cells Few /hpf (<5) Urine Bacteria None seen /hpf (None Seen) Urine Mucus Few (None Seen) Urine Glucose Normal mg/dL (Normal) Microbiology Microbiology Date/Time Source Procedure Growth Status 05/17/24 14:38 Arm Gram Stain Pending Resulted 05/17/24 14:38 Arm Anaerobic Culture - Preliminary Resulted 05/17/24 14:38 Arm Aerobic Culture Pending Resulted 05/14/24 19:26 Blood Blood Culture - Preliminary NO GROWTH AFTER 72 HOURS OF INCUBATION. Resulted Labs and/or images reviewed: Labs reviewed by me, Image(s) reviewed by me Assessment/Plan Assessment/Plan Impression: -left arm cellulitis, rule out abscess -hypokalemia -illicit drug use: Amphetamines -foreign body object to left forearm Plan: -events: No events overnight. Postop day one of left forearm I&D. Patient reported to social work assistant that he has severe depression. Tele psych currently pending. -psychiatry consultation -wound culture pending. Change antibiotics according to final culture. -continue antibiotic therapy with Rocephin and clindamycin -pain management -DC planning for tomorrow if cleared by surgery, tele psych Total time spent with patient discussing and formulating plan of care: 35 minutes. This medical document was created using an electronic medical record system with [employer] dictation system. Although this document has been carefully reviewed, there may still be some phonetic and typographical errors. These areas are purely typographical due to imperfections of the software programs, and do not reflect any compromise in the patient's medical care. Plan discussed with: Patient, Other (RN) My Orders Orders - CRISTO HERNANDEZ NP Procedure Category Date Status Time Soc Telemed Psych CONS 05/17/24 Transmitted Consult 11:56 Date of Service: May 18, 2024 Billing Provider: CRISTO HERNANDEZ NP Common Visit Codes: [id number] INP/OBS CARE(HIGH) CRISTO HERNANDEZ NP May 18, 2024 08:57
[2024-05-18 09:43] LABS: Basophils # (auto) 0 10 ^3/uL (0-0.2); Basophils % (auto) 0.1 % (0.0-2.0); Eosinophils # (auto) 0 10 ^3/uL (0-0.8); Hematocrit 39.5 % (41.0-53.0); Hemoglobin 13.2 g/dL (13.5-17.5); Lymphocytes # (auto) 2.1 10 ^3/uL (0.4-5.4); Lymphocytes % (auto) 15.1 % (10.0-50.0); Mean Corpuscular Hemoglobin 29.6 pg (28.0-32.0); Mean Corpuscular Hgb Conc. 33.3 g/dL (32.0-36.0); Mean Corpuscular Volume 89.1 fL (80.0-100.0); Monocytes % (auto) 7.5 % (0.0-12.0); Neutrophils # (auto) 10.5 10 ^3/uL (1.6-8.6); Neutrophils % (auto) 77.3 % (37.0-80.0); Nucleated Red Blood Cells % 0.1 %; Platelet Count (auto) 316 10^3/uL (140-450); Red Blood Cells 4.44 10^6/uL (4.5-5.90); Red Cell Distribution Width 13.4 % (11.8-14.3); White Blood Cell 13.5 10^3/uL (4.4-10.8)
--- NOTE | 2024-05-18 16:13 | DVHINCON2 ---
Date of service: May 18, 2024 Referring Physician LUIS FERNANDO Reeves Reason for Consultation Medication management and disposition. History of Present Illness Chief complaint: "Pain in my arm". History of present illness: This is a 44-year-old male who was seen for evaluation via telepsychiatry. The primary team had expressed concerns that patient might be depressed. On my evaluation patient denied feeling depressed. He reported good sleep and appetite. He denied feeling hopeless or worthless. He denied any suicidal or homicidal ideation. He denied any auditory or visual hallucination. Past psychiatric history: Patient denied any history of any psychiatric ill ness. He denied any suicide attempts in the past. Past Medical History As per history and physical. Past Surgical History As per history and physical. Family History: Patient reports no known family medical history. Family History He denied any family history of any psychiatric illness. Social History Patient is single and has two children. Patient reported that he has been working with a [employer]. Substance use: Denied Allergies: Coded Allergies: NO KNOWN ALLERGIES (Unverified , 01/13/20) Home Meds Active Scripts Clindamycin Hcl (Clindamycin Hcl) 300 Mg Cap, 1 CAP PO TID for 7 Days, #21 CAP 0 Refills Prov:DEBBIE BARILLAS 05/10/24 Ibuprofen Micronized (MOTRIN TABLET) 600 Mg Tb, 600 MG PO TID PRN, #40 TAB *Black box warning-NSAIDS can increase risk of NV & hypertension, GI irritation, ulceration, bleed, perferation. Do not use post cardiac surgery. Use short duration/lowest effective dose. Prov:NAT HENSLEY MD 05/06/24 Cephalexin Monohydrate (Cephalexin) 500 Mg Tab, 1 TAB PO QID, #40 TAB Prov:NAT HENSLEY MD 05/06/24 Reported Medications Nabumetone (Nabumetone) 500 Mg Tab, 1 TAB PO BID, TAB 02/03/24 Review of Systems Review of systems is negative except HPI. Vital Signs Vital Signs Date Time Temp Pulse Resp B/P (MAP) Pulse Ox O2 Delivery O2 Flow Rate FiO2 05/18/24 12:47 98.2 75 19 101/57 (72) 96 98.2 05/18/24 08:00 Room Air* 0 21 Physical Exam Mental status examination: This is a 44 year male who appears slightly older than his stated age. His grooming is marginal. His eye contact limited. His speech is soft. He describes mood as "good" and his affect is restricted. He denied any suicidal or homicidal ideation. He denied any auditory or visual hallucination. His thought process is linear. He is oriented to time, place and person. His attention and concentration slightly impaired. His memory and language intact. His judgment and insight is fair. His impulse control is fair. His fund of knowledge is impaired. Labs/Diagnostic Data Labs Test 05/18/24 09:17 05/18/24 05:20 05/15/24 14:04 05/15/24 04:22 Range/Units White Blood Count 13.5 #H 4.4-10.8 10^3/uL Red Blood Count 4.44 L 4.5-5.90 10^6/uL Hemoglobin 13.2 L 13.5-17.5 g/dL Hematocrit 39.5 L 41.0-53.0 % Mean Corpuscular Volume 89.1 80.0-100.0 fL Mean Corpuscular Hemoglobin 29.6 28.0-32.0 pg Mean Corpuscular Hemoglobin Concent 33.3 32.0-36.0 g/dL Red Cell Distribution Width 13.4 11.8-14.3 % Platelet Count 316 140-450 10^3/uL Mean Platelet Volume 7.2 6.9-10.8 fL Neutrophils (%) (Auto) 77.3 37.0-80.0 % Lymphocytes (%) (Auto) 15.1 10.0-50.0 % Monocytes (%) (Auto) 7.5 0.0-12.0 % Eosinophils (%) (Auto) 0.0 0.0-7.0 % Basophils (%) (Auto) 0.1 0.0-2.0 % Neutrophils # (Auto) 10.5 H 1.6-8.6 10 ^3/uL Lymphocytes # (Auto) 2.1 0.4-5.4 10 ^3/uL Monocytes # (Auto) 1.0 0-1.3 10 ^3/uL Eosinophils # (Auto) 0 0-0.8 10 ^3/uL Basophils # (Auto) 0 0-0.2 10 ^3/uL Nucleated Red Blood Cells 0.1 % Sodium Level 141 136-145 mmol/L Potassium Level 4.9 3.5-5.1 mmol/L Chloride Level 108 H 98-107 mmol/L Carbon Dioxide Level 24 20-31 mmol/L Anion Gap 9 5-15 Blood Urea Nitrogen 27 #H 9-23 mg/dL Creatinine 0.78 0.700-1.30 mg/dL Glomerular Filtration Rate Calc 113 >90 mL/min BUN/Creatinine Ratio 34.6 H 10.0-20.0 Serum Glucose 113 H 74-106 mg/dL Calcium Level 9.8 8.7-10.4 mg/dL Urine Color Yellow Yellow Urine Clarity Clear Clear Urine pH 5.0 5.0-9.0 Urine Specific [place] 1.031 1.001-1.035 Urine Protein Negative Negative Urine Ketones Trace Negative Urine Blood Negative Negative /uL Urine Nitrite Negative Negative Urine Bilirubin Negative Negative Urine Urobilinogen Normal Negative mg/dL Urine Leukocyte Esterase Negative Negative /uL Urine RBC 1 0 - 3 /hpf Urine WBC 2 0 - 3 /hpf Urine Squamous Epithelial Cells Few <5 /hpf Urine Bacteria None seen None Seen /hpf Urine Mucus Few None Seen Urine Glucose Normal Normal mg/dL Urine Opiates Screen Neg NEGATIVE Urine Fentanyl Screen Neg NEGATIVE Urine Barbiturates Screen Neg NEGATIVE Urine Phencyclidine Screen Neg NEGATIVE Urine Amphetamines Screen Pos NEGATIVE Urine Benzodiazepines Screen Neg NEGATIVE Urine Cocaine Screen Neg NEGATIVE Urine Cannabinoids Screen Neg NEGATIVE Prothrombin Time 10.9 9.3-11.8 sec Prothrombin Time INR 1.03 0.9-1.15 Activated Partial Thromboplast Time 28.5 24.5-34.5 SEC Hemoglobin A1c 5.7 <5.7 % A1C Lactic Acid Level 0.5 0.4-2.0 mmol/L Total Bilirubin 0.5 0.2-1.0 mg/dL Aspartate Amino Transferase (AST) 14 13-40 U/L Alanine Aminotransferase (ALT) < 9 7-40 U/L Alkaline Phosphatase 98 46-116 U/L Total Protein 5.8 5.7-8.2 g/dL Albumin 3.6 3.2-4.8 g/dL Vitamin B12 Level 287 211-911 pg/mL Vitamin D 25-Hydroxy 39.1 30.0-100 ng/mL Thyroid Stimulating Hormone (TSH) 0.41 L 0.55-4.78 uIU/mL Hepatitis A IgM Antibody Negative Hepatitis B Surface Antigen Negative Negative Hepatitis B Core IgM Antibody Negative Hepatitis C Antibody Negative Negative HIV (1&2) Antibody Negative Negative Microbiology Date/Time Source Procedure Growth Status 05/17/24 14:38 Arm Gram Stain - Final Resulted 05/17/24 14:38 Arm Anaerobic Culture - Preliminary Resulted 05/17/24 14:38 Arm Aerobic Culture - Preliminary Resulted 05/14/24 19:26 Blood Blood Culture - Preliminary NO GROWTH AFTER 72 HOURS OF INCUBATION. Resulted Assessment Patient with a diagnosis of adjustment disorder who is currently denying any psychiatric symptoms. Plan/Recommendation I will not recommend to start any psychotropic medication at this point. Care was coordinated with the patient and his RN. Plan discussed with: Patient ZOHAIB LOGAN MD May 18, 2024 16:13
[2024-05-18] MEDS: ACETAMINOPHEN/CODEINE#3 (300/30mg) TAB PO PRN (22:38)
[2024-05-19] VITALS (7 sets, daily range): BP systolic 102–123; BP diastolic 58–80; PULSE 67–90; RESP 17–20; TEMP 97.5–98.4; O2SAT 95–98
--- NOTE | 2024-05-19 17:43 | DVHPN2 ---
Subjective cellulitis improved with less swelling Reviewed: Care Plan, H&P, Labs, Medications Changes from previous H/P or p: No Changes General: Per HPI Eyes: No Pain, No Vision change, No Conjunctivae inflammation, No Eyelid inflammation, No Other, No Redness ENT: No Ear pain, No Ear discharge, No Nose pain, No Nose discharge, No Nose congestion, No Mouth pain, No Mouth swelling, No Throat pain, No Throat swelling, No Other Cardiovascular: No Chest Pain, No Palpitations, No Orthopnea, No Paroxysmal Noc. Dyspnea, No Edema, No Lt Headedness, No Other Respiratory: No Cough, No Dry, No Shortness of breath, No SOB with excertion, No Wheezing, No Hemoptysis, No Pleuritic Pain, No Sputum, No Other Gastrointestinal: Nausea, Vomiting Genitourinary: No Dysuria, No Frequency, No Incontinence, No Hematuria, No Retention, No Other Musculoskeletal: No other, No neck pain, No shoulder pain, No arm pain, No back pain, No hand pain, No leg pain, No foot pain Skin: Other (Swelling on left hand dorsum) Objective Vitals Vital Signs Date Time Temp Pulse Resp B/P (MAP) Pulse Ox O2 Delivery O2 Flow Rate FiO2 05/19/24 17:00 98.4 81 18 123/80 (94) 95 98.4 05/19/24 08:00 Room Air* 0 21 Intake/Output Intake and Output 05/19/24 05:00 Intake Total 2200 ml Output Total 1550 ml Balance 650 ml Intake Oral 2200 ml Output Urine Total 1550 ml General Appearance: Alert, Oriented X3, Cooperative, No acute distress HEENT: Atraumatic, PERRLA Lungs: Clear to auscultation, Normal air movement Cardiovascular: Normal S1, Normal S2 Abdomen: Normal bowel sounds, Soft Genitourinary: No Apparent Abnormalities Musculoskeletal: Normal sensory function, Normal motor function Extremities: Other (Left arm swelling, questionable abscess) Neuro: Normal gait, Normal speech Psych/Mental Status: Mental status NL, Mood NL Medications Current Medications Medications Dose Ordered Sig/Isis Route Start Time Stop Time Status Last Admin Dose Admin Sodium Chloride 10 ml Q8HR IV 05/14/24 22:00 05/19/24 15:33 10 ML Ondansetron HCl 4 mg Q4HP PRN IV 05/14/24 21:15 05/15/24 00:13 4 MG Acetaminophen 650 mg Q6HP PRN PO 05/14/24 21:15 Nitroglycerin 0.4 mg Q5MINP PRN SL 05/14/24 21:15 Morphine Sulfate 2 mg Q30M PRN IV 05/14/24 21:15 Ceftriaxone Sodium 50 ml @ 100 mls/hr DAILY@2200 IV 05/15/24 22:00 05/18/24 22:44 100 MLS/HR Clindamycin Phosphate 50 ml @ 50 mls/hr Q8HR IV 05/15/24 06:00 05/19/24 15:32 50 MLS/HR Alprazolam 0.25 mg Q8HP PRN PO 05/16/24 09:45 Acetaminophen/ Codeine Phosphate 1 tab Q6HP PRN PO 05/16/24 09:45 05/18/24 22:38 1 TAB Laboratory Results Laboratory Tests 05/18/24 05:20 05/18/24 09:17 Urinalysis Test 05/15/24 14:04 Urine Color Yellow (Yellow) Urine Clarity Clear (Clear) Urine pH 5.0 (5.0-9.0) Urine Specific [place] 1.031 (1.001-1.035) Urine Protein Negative (Negative) Urine Ketones Trace (Negative) Urine Blood Negative /uL (Negative) Urine Nitrite Negative (Negative) Urine Bilirubin Negative (Negative) Urine Urobilinogen Normal mg/dL (Negative) Urine Leukocyte Esterase Negative /uL (Negative) Urine RBC 1 /hpf (0 - 3) Urine WBC 2 /hpf (0 - 3) Urine Squamous Epithelial Cells Few /hpf (<5) Urine Bacteria None seen /hpf (None Seen) Urine Mucus Few (None Seen) Urine Glucose Normal mg/dL (Normal) Microbiology Microbiology Date/Time Source Procedure Growth Status 05/17/24 14:38 Arm Gram Stain - Final Resulted 05/17/24 14:38 Arm Anaerobic Culture - Preliminary Resulted 05/17/24 14:38 Arm Aerobic Culture - Preliminary Resulted 05/14/24 19:26 Blood Blood Culture - Preliminary NO GROWTH AFTER 72 HOURS OF INCUBATION. Resulted Assessment/Plan Assessment/Plan -left arm cellulitis, rule out abscess -hypokalemia -illicit drug use: Amphetamines -foreign body object to left forearm Plan: -events: No events overnight. Postop day one of left forearm I&D. Patient reported to social security assessor that he has severe depression. Tele psych currently pending. -psychiatry consultation -wound culture pending. Change antibiotics according to final culture. -continue antibiotic therapy with Rocephin and clindamycin -pain management -DC planning for tomorrow if cleared by surgery, tele psych Total time spent with patient discussing and formulating plan of care: 35 minutes. Plan discussed with: Patient Date of Service: May 19, 2024 Billing Provider: JOS LEBRON MD Common Visit Codes: [id number] INP/OBS CARE(HIGH) JOS LEBRON MD May 19, 2024 17:43
[2024-05-20] VITALS (8 sets, daily range): BP systolic 94–107; BP diastolic 57–72; PULSE 63–93; RESP 16–20; TEMP 97.7–98.4; O2SAT 95–100
--- NOTE | 2024-05-20 10:20 | DVHPN2 ---
Subjective cellulitis improved with less swelling Reviewed: Care Plan, H&P, Labs, Medications Changes from previous H/P or p: No Changes General: Per HPI Eyes: No Pain, No Vision change, No Conjunctivae inflammation, No Eyelid inflammation, No Other, No Redness ENT: No Ear pain, No Ear discharge, No Nose pain, No Nose discharge, No Nose congestion, No Mouth pain, No Mouth swelling, No Throat pain, No Throat swelling, No Other Cardiovascular: No Chest Pain, No Palpitations, No Orthopnea, No Paroxysmal Noc. Dyspnea, No Edema, No Lt Headedness, No Other Respiratory: No Cough, No Dry, No Shortness of breath, No SOB with excertion, No Wheezing, No Hemoptysis, No Pleuritic Pain, No Sputum, No Other Gastrointestinal: Nausea, Vomiting Genitourinary: No Dysuria, No Frequency, No Incontinence, No Hematuria, No Retention, No Other Musculoskeletal: No other, No neck pain, No shoulder pain, No arm pain, No back pain, No hand pain, No leg pain, No foot pain Skin: Other (Swelling on left hand dorsum) Objective Vitals Vital Signs Date Time Temp Pulse Resp B/P (MAP) Pulse Ox O2 Delivery O2 Flow Rate FiO2 05/20/24 08:22 97.8 63 16 97/59 (72) 95 97.8 05/19/24 20:00 Room Air* 0 21 Intake/Output Intake and Output 05/20/24 07:00 Intake Total 2305 ml Balance 2305 ml Intake Oral 2255 ml IV Total 50 ml # Voids 7 # Bowel Movements 1 General Appearance: Alert, Oriented X3, Cooperative, No acute distress HEENT: Atraumatic, PERRLA Lungs: Clear to auscultation, Normal air movement Cardiovascular: Normal S1, Normal S2 Abdomen: Normal bowel sounds, Soft Genitourinary: No Apparent Abnormalities Musculoskeletal: Normal sensory function, Normal motor function Extremities: Other (Left arm swelling, questionable abscess) Neuro: Normal gait, Normal speech Psych/Mental Status: Mental status NL, Mood NL Medications Current Medications Medications Dose Ordered Sig/Isis Route Start Time Stop Time Status Last Admin Dose Admin Sodium Chloride 10 ml Q8HR IV 05/14/24 22:00 05/20/24 05:39 10 ML Ondansetron HCl 4 mg Q4HP PRN IV 05/14/24 21:15 05/15/24 00:13 4 MG Acetaminophen 650 mg Q6HP PRN PO 05/14/24 21:15 Nitroglycerin 0.4 mg Q5MINP PRN SL 05/14/24 21:15 Morphine Sulfate 2 mg Q30M PRN IV 05/14/24 21:15 Ceftriaxone Sodium 50 ml @ 100 mls/hr DAILY@2200 IV 05/15/24 22:00 05/19/24 21:52 100 MLS/HR Clindamycin Phosphate 50 ml @ 50 mls/hr Q8HR IV 05/15/24 06:00 05/20/24 05:39 50 MLS/HR Alprazolam 0.25 mg Q8HP PRN PO 05/16/24 09:45 Acetaminophen/ Codeine Phosphate 1 tab Q6HP PRN PO 05/16/24 09:45 05/19/24 21:53 1 TAB Laboratory Results Laboratory Tests 05/18/24 05:20 05/18/24 09:17 Urinalysis Test 05/15/24 14:04 Urine Color Yellow (Yellow) Urine Clarity Clear (Clear) Urine pH 5.0 (5.0-9.0) Urine Specific [place] 1.031 (1.001-1.035) Urine Protein Negative (Negative) Urine Ketones Trace (Negative) Urine Blood Negative /uL (Negative) Urine Nitrite Negative (Negative) Urine Bilirubin Negative (Negative) Urine Urobilinogen Normal mg/dL (Negative) Urine Leukocyte Esterase Negative /uL (Negative) Urine RBC 1 /hpf (0 - 3) Urine WBC 2 /hpf (0 - 3) Urine Squamous Epithelial Cells Few /hpf (<5) Urine Bacteria None seen /hpf (None Seen) Urine Mucus Few (None Seen) Urine Glucose Normal mg/dL (Normal) Microbiology Microbiology Date/Time Source Procedure Growth Status 05/17/24 14:38 Arm Gram Stain - Final Resulted 05/17/24 14:38 Arm Anaerobic Culture - Preliminary Resulted 05/17/24 14:38 Arm Aerobic Culture - Preliminary Resulted 05/14/24 19:26 Blood Blood Culture - Final NO GROWTH AFTER 5 DAYS OF INCUBATION. Complete Assessment/Plan Assessment/Plan -left arm cellulitis, rule out abscess -hypokalemia -illicit drug use: Amphetamines -foreign body object to left forearm Plan: -events: No events overnight. Postop day one of left forearm I&D. Patient reported to social services specialist that he has severe depression. Tele psych currently pending. -psychiatry consultation -wound culture pending. Change antibiotics according to final culture. -continue antibiotic therapy with Rocephin and clindamycin -pain management -DC planning for tomorrow if cleared by surgery, tele psych -Pending final culture and placement Total time spent with patient discussing and formulating plan of care: 35 minutes. Plan discussed with: Patient Date of Service: May 20, 2024 Billing Provider: JOS LEBRON MD Common Visit Codes: [id number] INP/OBS CARE(HIGH) JOS LEBRON MD May 20, 2024 10:20
[2024-05-21 01:00] VITALS: BP 101/66; PULSE 82; RESP 18; TEMP 98.1; O2SAT 96
[2024-05-21 04:59] VITALS: BP 99/55; PULSE 66; RESP 19; TEMP 98.4; O2SAT 96
[2024-05-21 08:00] VITALS: PULSE 85; RESP 20; O2SAT 95
[2024-05-21 09:00] VITALS: BP 94/60; PULSE 85; RESP 18; TEMP 97.3; O2SAT 95
--- NOTE | 2024-05-21 12:45 | DVHDS2 ---
Discharge Summary Date of Admission May 14, 2024 at 21:03 Date of Discharge: May 21, 2024 Admitting Diagnosis Acute toxic metabolic encephalopathy Labs/Diagnostic Data: Laboratory Results Test 05/18/24 09:17 05/18/24 05:20 05/15/24 14:04 05/15/24 04:22 White Blood Count 13.5 10^3/uL (4.4-10.8) Red Blood Count 4.44 10^6/uL (4.5-5.90) Hemoglobin 13.2 g/dL (13.5-17.5) Hematocrit 39.5 % (41.0-53.0) Mean Corpuscular Volume 89.1 fL (80.0-100.0) Mean Corpuscular Hemoglobin 29.6 pg (28.0-32.0) Mean Corpuscular Hemoglobin Concent 33.3 g/dL (32.0-36.0) Red Cell Distribution Width 13.4 % (11.8-14.3) Platelet Count 316 10^3/uL (140-450) Mean Platelet Volume 7.2 fL (6.9-10.8) Neutrophils (%) (Auto) 77.3 % (37.0-80.0) Lymphocytes (%) (Auto) 15.1 % (10.0-50.0) Monocytes (%) (Auto) 7.5 % (0.0-12.0) Eosinophils (%) (Auto) 0.0 % (0.0-7.0) Basophils (%) (Auto) 0.1 % (0.0-2.0) Neutrophils # (Auto) 10.5 10 ^3/uL (1.6-8.6) Lymphocytes # (Auto) 2.1 10 ^3/uL (0.4-5.4) Monocytes # (Auto) 1.0 10 ^3/uL (0-1.3) Eosinophils # (Auto) 0 10 ^3/uL (0-0.8) Basophils # (Auto) 0 10 ^3/uL (0-0.2) Nucleated Red Blood Cells 0.1 % Sodium Level 141 mmol/L (136-145) Potassium Level 4.9 mmol/L (3.5-5.1) Chloride Level 108 mmol/L (98-107) Carbon Dioxide Level 24 mmol/L (20-31) Anion Gap 9 (5-15) Blood Urea Nitrogen 27 mg/dL (9-23) Creatinine 0.78 mg/dL (0.700-1.30) Glomerular Filtration Rate Calc 113 mL/min (>90) BUN/Creatinine Ratio 34.6 (10.0-20.0) Serum Glucose 113 mg/dL (74-106) Calcium Level 9.8 mg/dL (8.7-10.4) Urine Color Yellow (Yellow) Urine Clarity Clear (Clear) Urine pH 5.0 (5.0-9.0) Urine Specific [place] 1.031 (1.001-1.035) Urine Protein Negative (Negative) Urine Ketones Trace (Negative) Urine Blood Negative /uL (Negative) Urine Nitrite Negative (Negative) Urine Bilirubin Negative (Negative) Urine Urobilinogen Normal mg/dL (Negative) Urine Leukocyte Esterase Negative /uL (Negative) Urine RBC 1 /hpf (0 - 3) Urine WBC 2 /hpf (0 - 3) Urine Squamous Epithelial Cells Few /hpf (<5) Urine Bacteria None seen /hpf (None Seen) Urine Mucus Few (None Seen) Urine Glucose Normal mg/dL (Normal) Urine Opiates Screen Neg (NEGATIVE) Urine Fentanyl Screen Neg (NEGATIVE) Urine Barbiturates Screen Neg (NEGATIVE) Urine Phencyclidine Screen Neg (NEGATIVE) Urine Amphetamines Screen Pos (NEGATIVE) Urine Benzodiazepines Screen Neg (NEGATIVE) Urine Cocaine Screen Neg (NEGATIVE) Urine Cannabinoids Screen Neg (NEGATIVE) Prothrombin Time 10.9 sec (9.3-11.8) Prothrombin Time INR 1.03 (0.9-1.15) Activated Partial Thromboplast Time 28.5 SEC (24.5-34.5) Hemoglobin A1c 5.7 % A1C (<5.7) Lactic Acid Level 0.5 mmol/L (0.4-2.0) Total Bilirubin 0.5 mg/dL (0.2-1.0) Aspartate Amino Transferase (AST) 14 U/L (13-40) Alanine Aminotransferase (ALT) < 9 U/L (7-40) Alkaline Phosphatase 98 U/L (46-116) Total Protein 5.8 g/dL (5.7-8.2) Albumin 3.6 g/dL (3.2-4.8) Vitamin B12 Level 287 pg/mL (211-911) Vitamin D 25-Hydroxy 39.1 ng/mL (30.0-100) Thyroid Stimulating Hormone (TSH) 0.41 uIU/mL (0.55-4.78) Hepatitis A IgM Antibody Negative Hepatitis B Surface Antigen Negative (Negative) Hepatitis B Core IgM Antibody Negative Hepatitis C Antibody Negative (Negative) HIV (1&2) Antibody Negative (Negative) Other Laboratory Tests 05/18/24 09:17 05/18/24 05:20 Brief Hx & Hospital Course: History of Present Illness CAITLIN CANDELARIA 44 years old male with a PMH of HTN presented to the ED with the chief complaints of left hand swelling since day prior to admission. Patient reported has been experiencing redness, swelling and pain which is associated with low-grade fever, nausea, chills vomiting and mild dizziness. Patient reported has been seen this morning in ER but they discharged again he came back due to worsening of symptoms. My assessment patient denies SOB, chest pain, headache, abdominal pain, and other associated symptoms. Course of hospitalization: Patient was found to be positive for methamphetamines. Patient noted to have large swelling and redness with possible abscess to left forearm. X-ray was performed of the left forearm which revealed foreign body object. Consultation was obtained with General surgery. Patient went to OR and underwent I and D left forearm abscess. Patient was continued on antibiotics while in the hospital with both Zosyn and clindamycin. The patient states that his symptoms have improved dramatically. He will follow up with surgeon, Dr. Farias at established appointment. He will be continued on antibiotic therapy with Augmentin 875 mg p.o. twice a day. He was instructed to stop using illicit drugs. All questions answered. Patient will also be able to shower but keep his left forearm dressing dry and intact. Physical examination General: Alert and Oriented x3. No acute distress. Well-nourished. Eyes: EOMI. Anicteric. HENT: Moist mucous membranes. Lungs: Clear to auscultation bilaterally. No accessory muscle use. Cardiovascular: Regular rate and rhythm. No murmur. No JVD. Abdomen: Soft, non-tender and non-distended. No palpable masses. Extremities: No edema. Non-tender. Skin: No rashes or lesions. Warm. Neurologic: No focal neurological deficits. CN II-XII grossly intact, but not individually tested. Psychiatric: Cooperative. Appropriate mood and affect. Total time spent with patient discussing and formulating plan of care: 35 minutes. This medical document was created using an electronic medical record system with [employer] dictation system. Although this document has been carefully reviewed, there may still be some phonetic and typographical errors. These areas are purely typographical due to imperfections of the software programs, and do not reflect any compromise in the patient's medical care. Consults/Reason for consult General surgery: Left forearm abscess Operations or Procedures 05/17/2024: I and D of the L forearm Condition at Discharge: Good Final Diagnosis/Problems List abscess left forearm Secondary Diagnosis: -left arm cellulitis -hypokalemia -illicit drug use: Amphetamines -foreign body object to left forearm Discharge Disposition: Home Discharge Instruct/Medications Diet: Regular Activity: No Restrictions, As Tolerated Follow Up/Referral: Follow up with Dr. Holbrook at established appointment Discharge Clinic in one week Medications: Augmentin 875 mg p.o. twice a day for seven days 36 Discharge Statement: "Patient was advised to return to the ER or call 911 if any headaches, dizziness, shortness of breath, chest pain, abdominal pain, bleeding, fevers, or worsening of medical condition. Patient was counseled about treatment plan, medications, possible side effects, patientverbalized understanding. All questions were answered to the best of my ability. This discharge took greater then 30 minutes in planning, reviewing documentation, counseling the patient, and discussing with other team members." ASSESSMENT ASSESSMENT Assessment abscess left forearm Date of Service: May 21, 2024 Billing Provider: CRISTO HERNANDEZ NP Common Visit Codes: 92108-OUA/OBS DISCH DAY >30min Secondary Visit Codes: 17704-[id number] CHNG SMOKING >10MIN CRISTO HERNANDEZ NP May 21, 2024 12:45
[2024-05-21 12:48] VITALS: BP 123/78; PULSE 72; RESP 20; TEMP 98.3; O2SAT 98
[2024-05-21 13:00] VITALS: BP 96/55; PULSE 71; RESP 17; TEMP 98; O2SAT 97
== END 2024-05-21 14:23 | disposition home or self-care (01) | DRG 383 ==
LOC: ER 16:23 → OVERFLOW 21:03 → WEST WING 21:05
PROVIDERS: ATTEND Nurse Practitioner Acute Care
PROC: 0X990ZZ Drainage of Left Upper Arm, Open Approach (ICD-10-PCS; principal; 2024-05-17 14:03)
DX: L02.414 Cutaneous abscess of left upper limb (principal); E87.6 Hypokalemia; L03.114 Cellulitis of left upper limb; F15.90 Other stimulant use, unspecified, uncomplicated; I10 Essential (primary) hypertension; F17.290 Nicotine dependence, other tobacco product, uncomplicated; Z59.00 Homelessness unspecified; Z79.899 Other long term (current) drug therapy; Z88.8 Allergy status to other drugs, medicaments and biological substances
CPT/HCPCS: 36415; 71045; 73090; 80048; 80053; 80074; 80307; 81001; 82306; 82607; 83036; 83605; 84443; 85025; 85610; 85730; 86703; 86850; 86900; 86901; 87040; 87070; 87075; 87205; G0378; J0690; J1100; J2003; J2250; J2405; J2704; J3490; Q0162

== ENCOUNTER 2024-05-27 21:00 | Emergency (ER) | payer MEDICAID ==
[~2024-05-27] VITALS: Ht 180.3 cm; Wt 69.1 kg
--- NOTE | 2024-05-27 22:28 | DVH ---
CLINICAL INDICATION: pain injury TECHNIQUE: 3 radiographic views of the right wrist were obtained. Comparison: XY R HAND 2 VIEW XRAY on DOS: 07/09/23 FINDINGS/IMPRESSION: Erosive changes proximal metacarpal of the right thumb a represent erosive arthritis or osteoarthriti s. Old healed nonunion fracture of the styloid process of the ulna. There is a small calcification off the dorsum of the right wrist may represent a small avulsion fract ure off triquetrum. The visualized joint space is well maintained. The alignment is anatomical. There is no radiopaque foreign body.
[2024-05-28] MEDS ORDERED: DOXY100C4 PO (00:42)
--- NOTE | 2024-05-28 00:44 | ED.PDOC ---
Musculoskeletal HPI Comments This is a 44-year-old male patient presents to the ED chief complaint of acute on chronic right wrist pain. Patient states we will schedule his surgery on 3 [place] states he missed all 3 appointments. He states increasing pain with the cold he denies any new injury denies numbness or weakness in his extremities. Patient also complaining of an abscess in his left forearm currently on Keflex he notes no improvement denies fever or chills. Chief Complaint: Upper Extremity Time Seen by MD: 21:19 Primary Care Provider: NONE Reviewed Notes: Nurses Notes, Medications, Allergies Allergies: Coded Allergies: NO KNOWN ALLERGIES (Unverified , 01/13/20) Home Meds Active Scripts Doxycycline Hyclate (Doxycycline Hyclate) 100 Mg Cap, 1 CAP PO BID for 7 Days, #14 CAP Prov:TITA BRINK 05/28/24 Ibuprofen Micronized (MOTRIN TABLET) 600 Mg Tb, 600 MG PO TID PRN, #40 TAB *Black box warning-NSAIDS can increase risk of NE & hypertension, GI irritation, ulceration, bleed, perferation. Do not use post cardiac surgery. Use short duration/lowest effective dose. Prov:NAT HENSLEY MD 05/06/24 Reported Medications Nabumetone (Nabumetone) 500 Mg Tab, 1 TAB PO BID, TAB 02/03/24 Discontinued Scripts Clindamycin Hcl (Clindamycin Hcl) 300 Mg Cap, 1 CAP PO TID for 7 Days, #21 CAP 0 Refills Prov:DEBBIE BARILLAS 05/10/24 Cephalexin Monohydrate (Cephalexin) 500 Mg Tab, 1 TAB PO QID, #40 TAB Prov:NAT HENSLEY MD 05/06/24 Mode of Arrival: Ambulatory Past Medical History PAST MEDICAL HISTORY: HTN Surgical History: Denies all surgeries Family History Family History: Reviewed,noncontributory to illness, No family hx of Cancer, No family hx of DM, No family hx of Heart kathi, No family hx of HTN, No family hx ofKidney kathi, No family hx of Liver kathi, No family hx of Lung kathi, No family hx of Stroke Social History Smoker: Cigarettes, Less Than 1 Pack/Day Alcohol: Occasionally Drugs: Marijuana, Methamphetamine Lives In: Homeless Constitutional: denies: chills, diaphoresis, fatigue, fever, malaise, sweats, weakness, others EENTM: denies: blurred vision, double vision, ear bleeding, ear discharge, ear drainage, ear pain, ear ringing, eye pain, eye redness, hearing loss, mouth pain, mouth swelling, nasal discharge, nose bleeding, nose congestion, nose pain, photophobia, tearing, throat pain, throat swelling, voice changes, others Respiratory: denies: cough, hemoptysis, orthopnea, SOB at rest, shortness of breath, SOB with excertion, stridor, wheezing, others Cardiovascular: denies: chest pain, dizzy spells, diaphoresis, Dyspnea on exertion, edema, irregular heart beat, left arm pain, lightheadedness, palpitations, PND, syncope, others Gastrointestinal: denies: abdomen distended, abdominal pain, blood streaked bowels, constipated, diarrhea, dysphagia, difficulty swallowing, hematemesis, melena, nausea, poor appetite, poor fluid intake, rectal bleeding, rectal pain, vomiting, others Genitourinary: denies: burning, dysuria, flank pain, frequency, hematuria, incontinence, penile discharge, penile sore, pain, testicle pain, testicle swelling, urgency, others Neurological: denies: dizziness, fainting, headache, left sided numbness, left sided weakness, numbness, paresthesia, pre-existing deficit, right sided numbness, right sided weakness, seizure, speech problems, tingling, tremors, weakness, others Musculoskeletal: reports: others (Right wrist pain); denies: back pain, gout, joint pain, joint swelling, muscle pain, muscle stiffness, neck pain Integumetry: reports: wounds (Abscess right forearm); denies: bruises, change in color, change in hair/nails, dryness, laceration, lesions, lumps, rash, others Allergic/Immunocompromised: denies: Difficulty Healing, Frequent Infections, Hives, Itching, others Hematologic/Lymphatic: denies: anemia, blood clots, easy bleeding, easy bruising, swollen glands, others Endocrine: denies: excessive hunger, excessive sweating, excessive thirst, excessive urination, flushing, intolerance to cold, intolerance to heat, unexplained weight gain, unexplained weight loss, others Psychiatric: denies: anxiety, bipolar disorder, depression, hopeless, panic disorder, schizophrenia, sleepless, suicidal, others Physical Exam General Appearance: No Apparent Distress, Normal HEENT: Pharynx Normal Neck: Full Range of Motion, Non-Tender Respiratory: Lungs Clear, No Respiratory Distress, Normal Breath Sounds Cardiovascular: No Edema, No Murmur, Normal Peripheral Pulses, Regular Rate/Rhythm Breast Exam: Deferred Gastrointestinal: Non Tender, Soft Genitalia: Deferred Pelvic: Deferred Rectal: Deferred Extremities: Normal capillary refill, Normal inspection, Normal range of chip on, Non-tender, No pedal edema Musculoskeletal : Location: Right Extremity Location: Wrist (Tenderness palpated on dorsum aspect of right wrist) Apperance: Normal Neurologic: Alert, toy assembler wood II-XII nml as Tested, No Motor Deficits, Normal Affect, Normal Mood, No Sensory Deficits Cerebellar Function: Normal Reflexes: Normal Skin: Dry, Normal Color, Warm, Wounds (Abscess dorsum aspect of distal right forearm non fluctuant hard to touch no drainage noted trace erythema without s treaking. Positive strength sensory motion intact right and left hands positive radial pulses) Lymphatic: No Adenopathy Was a procedure done? Was a procedure done?: No Differential Diagnosis EXT Differential Diagnosis: Fracture X-Ray, Labs, Meds, VS Vital Signs Date Time Temp Pulse Resp B/P (MAP) Pulse Ox O2 Delivery O2 Flow Rate FiO2 05/28/24 00:58 98.7 92 16 110/70 (83) 95 98.7 05/28/24 00:58 92 16 95 Room Air 05/27/24 21:49 98.3 90 18 134/75 (94) 98 Current Medications Medications (Trade) Dose Ordered Sig/Siis Route Start Time Stop Time Status Last Admin Ibuprofen (Motrin Tablet) 800 mg ONCE ONCE PO 05/28/24 00:45 05/28/24 00:46 DC 05/28/24 01:11 Ceftriaxone Sodium (Rocephin) 1,000 mg ONCE ONCE IM 05/28/24 00:45 05/28/24 00:46 DC 05/28/24 01:11 X-Ray, Labs, Meds, VS Comment Right wrist x-ray shows small nondisplaced avulsion fracture. Patient is aware of his right hand and wrist fracture and has scheduled surgery on multiple occasions down the [place] however has missed his surgery appointments. We will place his right wrist in a Velcro splint. Continue the ibuprofen 600 mg as needed for pain. We will also script doxycycline for left abscess arm infection advised him to stop the Keflex. Advised for him to follow up with his PCP for referral for ortho hand. Discussed signs and symptoms of increased infection and ER return precautions. Patient agrees with discharge plan of care. Time of 1ST Reevaluation: 00:43 Reevaluation 1ST: Improved Patient Education/Counseling: Diagnosis, Treatment, Prognosis, Need For Follow Up Family Education/Counseling: No Family Present Departure 1 Departure Time of Disposition: 00:41 Impression: Primary Impression: Cellulitis of left forearm Additional Impression: Wrist fracture, right Qualified Codes: S62.101A - Fracture of unspecified carpal bone, right wrist, initial encounter for closed fracture Disposition: HOME / SELF CARE / HOMELESS Condition: Stable e-Prescriptions Doxycycline Hyclate (Doxycycline Hyclate) 100 Mg Cap 1 CAP PO BID for 7 Days, #14 CAP Prov: TITA BRINK 05/28/24 Critical Care Note Critical Care Time?: No Stability Stability form required: No TITA BRINK May 28, 2024 00:44
[2024-05-28 00:58] VITALS: BP 110/70; PULSE 92; RESP 16; TEMP 98.7; O2SAT 95
[2024-05-28] MEDS: IBUPROFEN 800 MG TAB PO ONE (01:11)
[2024-05-28] MEDS: cefTRIAXone SOD 1,000 MG VL IM ONE (01:11)
== END 2024-05-28 01:21 | disposition home or self-care (01) ==
LOC: ER 21:00
DX: S62.101A Fracture of unspecified carpal bone, right wrist, initial encounter for closed fracture (principal); L03.114 Cellulitis of left upper limb; I10 Essential (primary) hypertension; F17.210 Nicotine dependence, cigarettes, uncomplicated; F12.90 Cannabis use, unspecified, uncomplicated; F15.90 Other stimulant use, unspecified, uncomplicated; Z79.899 Other long term (current) drug therapy; Z59.00 Homelessness unspecified; X58.XXXA Exposure to other specified factors, initial encounter; Y93.89 Activity, other specified; Y92.89 Other specified places as the place of occurrence of the external cause; Y99.8 Other external cause status
CPT/HCPCS: 29125; 73110; 96372; 99283; J0696

== ENCOUNTER 2024-06-14 19:24 | Emergency (ER) | payer MEDICAID ==
[~2024-06-14] VITALS: Ht 180.3 cm; Wt 75.0 kg
[~2024-06-14 19:24] MED LIST changes: -CEPH500T PO; -CLIN1CAP70 PO; +DOXY100C4 PO
[2024-06-14 21:05] LABS: Basophils # (auto) 0.1 10 ^3/uL (0-0.2); Basophils % (auto) 0.8 % (0.0-2.0); Eosinophils # (auto) 0.1 10 ^3/uL (0-0.8); Hematocrit 39.3 % (41.0-53.0); Hemoglobin 13.2 g/dL (13.5-17.5); Lymphocytes # (auto) 2.1 10 ^3/uL (0.4-5.4); Mean Corpuscular Hgb Conc. 33.6 g/dL (32.0-36.0); Monocytes # (auto) 0.6 10 ^3/uL (0-1.3); Monocytes % (auto) 7.7 % (0.0-12.0); Neutrophils # (auto) 4.4 10 ^3/uL (1.6-8.6); Neutrophils % (auto) 61.5 % (37.0-80.0); Platelet Count (auto) 292 10^3/uL (140-450); Red Blood Cells 4.41 10^6/uL (4.5-5.90); Red Cell Distribution Width 13.6 % (11.8-14.3); White Blood Cell 7.2 10^3/uL (4.4-10.8)
[2024-06-14 21:17] LABS: Urine Bacteria FEW /hpf (None Seen); Urine Blood Negative /uL (Negative); Urine Clarity Clear (Clear); Urine Color Yellow (Yellow); Urine Protein, UAD TRACE (Negative); Urine Specific Gravity 1.024 (1.001-1.035); Urine Urobilinogen Normal (Negative); Urine WBC 2 /hpf (0 - 3)
[2024-06-14 21:24] LABS: Alanine Aminotransferase 13 U/L (7-40); Albumin 4.4 g/dL (3.2-4.8); Alkaline Phosphatase 115 U/L (46-116); Anion Gap 8 (5-15); Aspartate Aminotransferase 21 U/L (13-40); BUN/Creatinine Ratio 18.2 (10.0-20.0); Bilirubin, Total 0.3 mg/dL (0.2-1.0); Blood Urea Nitrogen 20 mg/dL (9-23); Calcium 10.3 mg/dL (8.7-10.4); Carbon Dioxide 28 mmol/L (20-31); Chloride 105 mmol/L (98-107); Potassium 3.9 mmol/L (3.5-5.1); Sodium 141 mmol/L (136-145)
[2024-06-14 21:25] LABS: Glucose 108 mg/dL (74-106)
--- NOTE | 2024-06-14 21:25 | DVH ---
EXAM: XY CHEST XRAY 1 VIEW TECHNIQUE: Single frontal chest radiograph CLINICAL HISTORY: cp COMPARISON: XY CHEST XRAY 1 VIEW on DOS: 05/14/24, CHEST XRAY 1 VIEW on DOS: 01/13/20 Findings/Impression: Frontal chest radiograph demonstrates no acute osseous or superficial soft tissue abnormalities. The trachea is midline. The cardiac silhouette and mediastinum are within normal limits. No pneumothorax, pleural effusions, or consolidations.
--- NOTE | 2024-06-14 21:54 | ED.PDOC ---
History of Present Illness HPI Comments 44-year-old male who came to ER for chest pains/bilateral feet pain. Patient is homeless and does have history of methamphetamine abuse. States for the past few days he has been all foot pain. States both his feet feel numb at times. Also complaining of occasional episodes of chest tightness with shortness of breath. Denies ever being diagnosed with diabetes. Chief Complaint: Chest Pain Time Seen by MD: 21:53 Primary Care Provider: NONE Reviewed Notes: Nurses Notes Allergies: Coded Allergies: NO KNOWN ALLERGIES (Unverified , 01/13/20) Home Meds Active Scripts Doxycycline Hyclate (Doxycycline Hyclate) 100 Mg Cap, 1 CAP PO BID for 7 Days, #14 CAP Prov:TITA BRINK 05/28/24 Ibuprofen Micronized (MOTRIN TABLET) 600 Mg Tb, 600 MG PO TID PRN, #40 TAB *Black box warning-NSAIDS can increase risk of VT & hypertension, GI irritation, ulceration, bleed, perferation. Do not use post cardiac surgery. Use short duration/lowest effective dose. Prov:NAT HENSLEY MD 05/06/24 Reported Medications Nabumetone (Nabumetone) 500 Mg Tab, 1 TAB PO BID, TAB 02/03/24 Information Source: Patient Mode of Arrival: EMS Severity: Moderate Timing: Days Duration: Intermittent Prehospital treatment: None Review of Systems: REVIEW OF SYSTEMS: No fever, no chills, or fatigue HEENT: No sore throat, no earache, no congestion, no neck pain. Cardiac: (+) chest pain. No palpitations. Lungs: No shortness of breath, no cough. GI: No nausea, no vomiting, no diarrhea, no constipation, no abdominal pain : No dysuria, frequency, or urgency. No hematuria. Musculoskeletal: No joint pain , no joint swelling, no extremity edema (+) bilateral foot pain and tingling Skin: No rash, no itching. Neuro: No headache, no dizziness, no weakness Vital Signs Vital Signs Date Time Temp Pulse Resp B/P (MAP) Pulse Ox O2 Delivery O2 Flow Rate FiO2 06/14/24 22:17 97 06/14/24 19:24 98.2 16 132/80 (97) 98 Physical Exam General: Awake, alert and oriented. No acute distress. Skin: Skin in warm, dry and intact. Appropriate color for ethnicity. Nailbeds pink with no cyanosis. HEENT: The head is normocephalic and atraumatic. Conjunctivae are clear without exudates or hemorrhage. Sclera is non-icteric. EOM are intact. No signs of nystagmus. Eyelids are normal in appearance without swelling or lesions. Oral mucosa is pink and moist Neck: The neck is supple with normal range of motion. No JVD. Cardiac: Heart rate and rhythm are normal. No murmurs, gallops, or rubs are auscultated. Respiratory: No signs of respiratory distress. Lung sounds are clear in all lob es bilaterally without rales, ronchi, or wheezes. Abdominal: Abdomen is soft, non-tender without distention. Bowel sounds are p resent and normoactive in all four quadrants. Extremities: Upper and lower extremities are atraumatic in appearance without de formity or edema. Bilateral feet good DP pulses, normal capillary refill, normal color. Neurological: The patient is awake, alert and oriented to person, place, and time with normal speech. Speech is clear. There is no facial asymmetry. Diminished sensation bilateral feet. Position sense intact Psychiatric: Appropriate mood and affect. Good judgement and insight. No visual or auditory hallucinations. Past Medical History PAST MEDICAL HISTORY: HTN Surgical History: Denies all surgeries Family History Family History: Reviewed,noncontributory to illness Social History Smoker: Cigarettes, Less Than 1 Pack/Day Alcohol: Occasionally Drugs: Marijuana, Methamphetamine Lives In: Homeless Was a procedure done? Was a procedure done?: No EKG EKG : Pulse Rate (adult): 97 Cardiac Rhythm: NSR Comments No STEMI Differential Dx Considerations may include: Anemia, electrolyte imbalance, dehydration, neuropathy, HIV, vitamin-D deficienc y, diabetes, thermal injury, limb ischemia, DVT, substance abuse, other X-Ray, Labs, Meds, VS Vital Signs Date Time Temp Pulse Resp B/P (MAP) Pulse Ox O2 Delivery O2 Flow Rate FiO2 06/14/24 22:17 97 06/14/24 21:42 97 06/14/24 20:05 100 06/14/24 19:24 98.2 103 16 132/80 (97) 98 Lab Test 06/14/24 21:25 06/14/24 20:55 06/14/24 20:39 06/14/24 20:37 Range/Units Troponin I High Sensitivity 3 L 3 L </=54 ng/L Urine Color Yellow Yellow Urine Clarity Clear Clear Urine pH 6.0 5.0-9.0 Urine Specific [place] 1.024 1.001-1.035 Urine Protein Trace H Negative Urine Ketones Negative Negative Urine Blood Negative Negative /uL Urine Nitrite Negative Negative Urine Bilirubin Negative Negative Urine Urobilinogen Normal Negative mg/dL Urine Leukocyte Esterase Negative Negative /uL Urine RBC 1 0 - 3 /hpf Urine WBC 2 0 - 3 /hpf Urine Squamous Epithelial Cells None seen <5 /hpf Urine Bacteria Few H None Seen /hpf Urine Glucose Normal Normal mg/dL Vitamin B12 Level 410 211-911 pg/mL HIV (1&2) Antibody Negative Negative White Blood Count 7.2 4.4-10.8 10^3/uL Red Blood Count 4.41 L 4.5-5.90 10^6/uL Hemoglobin 13.2 L 13.5-17.5 g/dL Hematocrit 39.3 L 41.0-53.0 % Mean Corpuscular Volume 89.0 80.0-100.0 fL Mean Corpuscular Hemoglobin 30.0 28.0-32.0 pg Mean Corpuscular Hemoglobin Concent 33.6 32.0-36.0 g/dL Red Cell Distribution Width 13.6 11.8-14.3 % Platelet Count 292 140-450 10^3/uL Mean Platelet Volume 7.0 6.9-10.8 fL Neutrophils (%) (Auto) 61.5 37.0-80.0 % Lymphocytes (%) (Auto) 29.0 10.0-50.0 % Monocytes (%) (Auto) 7.7 0.0-12.0 % Eosinophils (%) (Auto) 1.0 0.0-7.0 % Basophils (%) (Auto) 0.8 0.0-2.0 % Neutrophils # (Auto) 4.4 1.6-8.6 10 ^3/uL Lymphocytes # (Auto) 2.1 0.4-5.4 10 ^3/uL Monocytes # (Auto) 0.6 0-1.3 10 ^3/uL Eosinophils # (Auto) 0.1 0-0.8 10 ^3/uL Basophils # (Auto) 0.1 0-0.2 10 ^3/uL Nucleated Red Blood Cells 0.0 % Sodium Level 141 136-145 mmol/L Potassium Level 3.9 3.5-5.1 mmol/L Chloride Level 105 98-107 mmol/L Carbon Dioxide Level 28 20-31 mmol/L Anion Gap 8 5-15 Blood Urea Nitrogen 20 9-23 mg/dL Creatinine 1.10 0.700-1.30 mg/dL Glomerular Filtration Rate Calc 85 >90 mL/min BUN/Creatinine Ratio 18.2 10.0-20.0 Serum Glucose 108 H 74-106 mg/dL Calcium Level 10.3 8.7-10.4 mg/dL Total Bilirubin 0.3 0.2-1.0 mg/dL Aspartate Amino Transferase (AST) 21 13-40 U/L Alanine Aminotransferase (ALT) 13 7-40 U/L Alkaline Phosphatase 115 46-116 U/L B-Type Natriuretic Peptide 8.99 0-100 pg/mL Total Protein 7.0 5.7-8.2 g/dL Albumin 4.4 3.2-4.8 g/dL EXAM: XY CHEST XRAY 1 VIEW TECHNIQUE: Single frontal chest radiograph CLINICAL HISTORY: cp COMPARISON: XY CHEST XRAY 1 VIEW on DOS: 05/14/24, CHEST XRAY 1 VIEW on DOS: 01/13/20 Findings/Impression: Frontal chest radiograph demonstrates no acute osseous or superficial soft tissue abnormalities. The trachea is midline. The cardiac silhouette and mediastinum are within normal limits. No pneumothorax, pleural effusions, or consolidations. Time of 1ST Reevaluation: 22:15 Reevaluation 1ST: Unchanged Patient Education/Counseling: Diagnosis, Treatment Family Education/Counseling: No Family Present Departure 1 Departure Time of Disposition: 22:39 Impression: Primary Impression: Chest pain Additional Impression: Paresthesia of foot, bilateral Disposition: 01 HOME / SELF CARE / HOMELESS Condition: Stable Additional Instructions: ED DISCHARGE INSTRUCTIONS Instructions: Please read all instructions provided in this packet carefully. Although you have been discharged from the Emergency Department, this does not mean that you have a "clean bill of health". No definitive diagnosis for your symptoms has been made today. It is possible that you are in the process of deve loping a serious illness. This is why you must return to the ED without fail if any new or worsening symptoms (especially if your symptoms include difficulty speaking, numbness or weakness anywhere else, difficulty walking, feet are cold, pale or blue, chest pain, trouble breathing, abdominal pain, fever, headache, confusion, trouble seeing, or trouble walking) It is also very important that you see a primary care doctor within the next 3-5 days to follow up in for further evaluation of your symptoms. Call to schedule an appointment with a new primary care provider if you do not have one or call your insurance company. [phone] Dr. Gloria Main or Dr. Raudel Penaloza If you are unable to get an appointment, return to the ED for re-evaluation. Peripheral Neuropathy Condition Basics What is peripheral neuropathy? Peripheral neuropathy is a problem that affects the peripheral nerves. These are the nerves that lead from the spinal cord to other parts of the body. These nerves control your sense of touch, how you feel pain and temperature, and your muscle strength. Most of the time the problem starts in the fingers and toes. As it gets worse, it moves into the limbs, causing pain and loss of feeling in the feet, legs, and hands. When you have peripheral neuropathy, you may have less feeling in your fingers and toes. You may have trouble with your balance. It may be hard to do things that require coordination, such as walking or fastening buttons. What causes it? Doctors don't always know what causes peripheral neuropathy. It is often caused by other health problems. It can also run in families. The most common cause is diabetes. Having your blood sugar too high for too long a time can damage the nerves. Other problems can also cause peripheral neuropathy, such as: Kidney problems. These can lead to toxic substances in the blood that damage nerves. Vitamin deficiencies and alcohol use disorder. Not getting enough nutrients, such as vitamin B-12, can damage nerves. Overuse of alcohol and not eating a healthy diet can lead to these vitamin deficiencies. Infectious or inflammatory diseases. Diseases, such as HIV or Guillain-Shukla syndrome, can damage the central and peripheral nerves. Exposure to toxic substances. Arsenic and certain medicines, such as those used for chemotherapy, can damage nerves. What are the symptoms? Symptoms of peripheral neuropathy can occur slowly over time. The most common ones are: Numbness, tightness, and tingling, especially in the legs, hands, and feet. Loss of feeling. Burning, shooting, or stabbing pain in the legs, hands, and feet. Often the pain is worse at night. Weakness and loss of balance. How is it diagnosed? To diagnose peripheral neuropathy, your doctor will ask you about: Your symptoms. Your medical history. This may include your use of alcohol, risk of HIV infection, or exposure to toxic substances. Your family's medical history, including nerve disease. Your doctor will check your nerves. The doctor may check your muscle strength and ability to feel touch, temperature, and pain. Sometimes nerve tests are needed. These include electromyography and nerve conduction tests. You may also have blood tests. These tests will help the doctor find out if you have conditions that can cause neuropathy. Examples are diabetes, vitamin deficiencies, thyroid disease, and kidney problems. How is it treated? Treatment for peripheral neuropathy can relieve symptoms. This is done by treating the health problem that's causing it. For example, if you have diabetes, keeping your blood sugar within your target range may help. Or maybe your body lacks certain vitamins caused by drinking too much alcohol. In that case, treatment may include eating a healthy diet, taking vitamins, and stopping alcohol use. You may have physical therapy. This can increase muscle strength and help build muscle control. [id number] medicine can relieve mild nerve pain. Your doctor may also prescribe medicine to help with severe pain, numbness, tingling, and weakness. If you have neuropathy in your feet, it's a good idea to have them checked during each office visit. This can help prevent problems. Some people find that physical therapy, acupuncture, or transcutaneous electrical nerve stimulation (TENS) helps relieve pain. How can you care for yourself? Adopting healthy habits can reduce the effects of peripheral neuropathy. Be sure to eat a healthy diet, get regular exercise, avoid alcohol, and quit smoking. It's also a good idea to take care to avoid injury. When your feet or legs feel numb, it's easier to lose your balance and fall. At home: Remove throw rugs and clutter. Install sturdy handrails on stairways. Put grab bars near your shower, bathtub, and toilet. Use a cane or walker if needed. Use night-lights to help you see better. To protect your hands: Use pot holders, and avoid hot water when you are cooking. Always check your bath or shower using a part of your body that can feel temperature normally, such as your elbow. Check your feet every day (or have someone else check for you): Look at all areas of your feet, including your toes. Use a handheld mirror or a magnifying mirror attached to the bathroom wall near the baseboard to inspect your feet. Related Information Calluses and Corns Hammer, Claw, and Mallet Toes Toe, Foot, and Ankle Problems, Noninjury Comments 44-year-old male with mild chest pain N/A main complaint of paresthesias of the bilateral feet. Patient does report long history of alcohol abuse. Do not suspect CVA, limb ischemia, DVT, cellulitis. Vitamin B12 and HIV pending. EKG negative for signs of ischemia. High sensitivity troponin negative. CXR shows no acute process. Presentation not suggestive of acute coronary syndrome, pulmonary embolism or aortic dissection. Patient improved at time of discharge. No hypoxia, respiratory distress or dyspnea at discharge. Patient well-appearing, nontoxic. Advised prompt follow-up with PCP, return to the ED with any new, worsening or concerning symptoms. Extensive evaluation was performed to identify or rule out: Acute coronary syndrome, CVA, limb ischemia, pneumonia, pulmonary embolism, aortic dissection The following tests were ordered, and results were reviewed by me: (See diagnostic results section) The following test were independently interpreted by me: EKG, chest x-ray I reviewed and agreed with the following test results read by other providers: Chest x-ray I reviewed the following notes from the pt's past medical encounters: May 2024, for cellulitis Additional information was gathered from interviewing the following independent historians: N/A Discussion of management or test interpretation with external physician/other qualified health patient care secretary: N/A Decision not to resuscitate or to de-escalate care because of poor prognosis: Homelessness, no memory care provider Decision regarding hospitalization or escalation of hospital level of care: Risks and benefits of admission for further treatment of patient's condition was considered however due to patient's stable condition patient will be discharged to follow up closely or return to care for worsening of condition or inability to follow up. Critical Care Note Critical Care Time?: No Stability Stability form required: No Heart Score Heart Score: Heart Score Response (Comments) Value History Slightly Suspicious 0 EKG N/A 0 Age N/A 0 Risk Factors 1 or 2 risk factors 1 Troponin N/A 0 Total 1 I personally scribed for JOLANTA SANTOS MD ([email or web address]) on 06/14/24 at 21:54. Electronically submitted by Luis Santillan ([employer]). I personally scribed for JOLANTA SANTOS MD ([email or web address]) on 06/14/24 at 22:16. Electronically submitted by Luis Santillan ([employer]). I personally scribed for JOLANTA SANTOS MD ([email or web address]) on 06/14/24 at 22:17. Electronically submitted by Luis Santillan ([employer]). JOLANTA SANTOS MD Jun 14, 2024 21:54
[2024-06-15] MEDS: ASPirin 81 mg TAB PO ONE (01:16)
[2024-06-15 01:20] VITALS: BP 119/83; PULSE 95; RESP 16; O2SAT 99
--- NOTE | 2024-06-15 07:00 | ECG ---
[facility] Test Date: 2024-06-14 Test Time: 19:33:56 Pat Name: CAITLIN CANDELARIA Department: er Room: Gender: M Record Changer: stanley : 1980 Requested By: JOLANTA SANTOS Order Number: [id number] Reading MD: Measurements Intervals [place] Rate: 97 P: 76 MI: 116 QRS: 93 QRSD: 98 T: 54 QT: 364 QTc: 463 Interpretive Statements Sinus rhythm Borderline short MI interval Borderline right axis deviation Please click the below link to view image of tracing.
--- NOTE | 2024-06-15 13:13 | ECG ---
[facility] Test Date: 2024-06-14 Test Time: 20:05:35 Pat Name: CAITLIN CANDELARIA Department: TRIAGE Room: Gender: M Telephone Claims Representative: KETURAH : 1980 Requested By: JOLANTA SANTOS Order Number: [id number] Reading MD: Measurements Intervals [place] Rate: 100 P: 73 [place]: 115 QRS: 96 QRSD: 98 T: 38 QT: 359 QTc: 463 Interpretive Statements Sinus tachycardia Borderline right axis deviation Please click the below link to view image of tracing.
== END 2024-06-15 01:34 | disposition home or self-care (01) ==
LOC: EDBD 19:24 → ER 19:24
DX: R07.89 Other chest pain (principal); M79.671 Pain in right foot; M79.672 Pain in left foot; R20.2 Paresthesia of skin; I10 Essential (primary) hypertension; F17.210 Nicotine dependence, cigarettes, uncomplicated; R06.02 Shortness of breath; Z79.899 Other long term (current) drug therapy; Z98.890 Other specified postprocedural states
CPT/HCPCS: 36415; 71045; 80053; 81001; 82607; 83880; 84484; 85025; 86703; 93005

== ENCOUNTER 2024-07-27 20:44 | Emergency (ER) | payer MEDICAID ==
[~2024-07-27] VITALS: Ht 180.3 cm; Wt 165.0 kg
[2024-07-27 20:44] VITALS: BP 140/98; PULSE 91; RESP 16; O2SAT 96
--- NOTE | 2024-07-27 22:14 | ED.PDOC ---
History of Present Illness HPI Comments 44-year-old male in to ER due to nausea and vomiting. Patient is homeless and has history of methamphetamine abuse. States for the past few hours he has been feeling sick, with shortness of breath. Also complaining of abdominal pain, associated of nausea, vomiting and diarrhea. Patient is a very poor informant. Chief Complaint: Nausea/Vomiting Time Seen by MD: 22:20 Primary Care Provider: NONE Reviewed Notes: Nurses Notes Allergies: Coded Allergies: NO KNOWN ALLERGIES (Unverified , 01/13/20) Home Meds Active Scripts Doxycycline Hyclate (Doxycycline Hyclate) 100 Mg Cap, 1 CAP PO BID for 7 Days, #14 CAP Prov:TITA BRINK ELECTRONIC SCANNER OPERATOR 05/28/24 Ibuprofen Micronized (MOTRIN TABLET) 600 Mg Tb, 600 MG PO TID PRN, #40 TAB *Black box warning-NSAIDS can increase risk of [place] & hypertension, GI irritation, ulceration, bleed, perferation. Do not use post cardiac surgery. Use short duration/lowest effective dose. Prov:NAT HENSLEY MD 05/06/24 Reported Medications Nabumetone (Nabumetone) 500 Mg Tab, 1 TAB PO BID, TAB 02/03/24 Information Source: Patient Mode of Arrival: Ambulatory Severity: Moderate Timing: Hours Duration: Since onset Prehospital treatment: None Past Medical History PAST MEDICAL HISTORY: Denies Surgical History: Denies all surgeries Family History Family History: Reviewed,noncontributory to illness Social History Smoker: Cigarettes, Less Than 1 Pack/Day Alcohol: Occasionally Drugs: Methamphetamine Lives In: Homeless Constitutional: denies: chills, diaphoresis, fatigue, fever, malaise, sweats, weakness, others EENTM: denies: blurred vision, double vision, ear bleeding, ear discharge, ear drainage, ear pain, ear ringing, eye pain, eye redness, hearing loss, mouth pain, mouth swelling, nasal discharge, nose bleeding, nose congestion, nose pain, photophobia, tearing, throat pain, throat swelling, voice changes, others Respiratory: reports: SOB at rest, shortness of breath; denies: cough, hemoptysis, orthopnea, SOB with excertion, stridor, wheezing, others Cardiovascular: denies: chest pain, dizzy spells, diaphoresis, Dyspnea on exertion, edema, irregular heart beat, left arm pain, lightheadedness, palpitations, PND, syncope, others Gastrointestinal: reports: abdominal pain, diarrhea, nausea, vomiting; denies: abdomen distended, blood streaked bowels, constipated, dysphagia, difficulty swallowing, hematemesis, melena, poor appetite, poor fluid intake, rectal bleeding, rectal pain, others Genitourinary: denies: burning, dysuria, flank pain, frequency, hematuria, incontinence, penile discharge, penile sore, pain, testicle pain, testicle swelling, urgency, others Neurological: denies: dizziness, fainting, headache, left sided numbness, left sided weakness, numbness, paresthesia, pre-existing deficit, right sided numbness, right sided weakness, seizure, speech problems, tingling, tremors, wea kness, others Musculoskeletal: denies: back pain, gout, joint pain, joint swelling, muscle pain, muscle stiffness, neck pain, others Integumetry: denies: bruises, change in color, change in hair/nails, dryness, l aceration, lesions, lumps, rash, wounds, others Allergic/Immunocompromised: denies: Difficulty Healing, Frequent Infections, Hives, Itching, others Hematologic/Lymphatic: denies: anemia, blood clots, easy bleeding, easy bruising, swollen glands, others Endocrine: denies: excessive hunger, excessive sweating, excessive thirst, excessive urination, flushing, intolerance to cold, intolerance to heat, unexplained weight gain, unexplained weight loss, others Psychiatric: denies: anxiety, bipolar disorder, depression, hopeless, panic disorder, schizophrenia, sleepless, suicidal, others Physical Exam General Appearance: No Apparent Distress, Normal HEENT: Normal ENT Inspection, Pharynx Normal, TMs Normal Neck: Full Range of Motion, Non-Tender, Normal, Normal Inspection Respiratory: Chest Non-Tender, Lungs Clear, No Accessory Muscle Use, No Respiratory Distress, Normal Breath Sounds Cardiovascular: No Edema, No JVD, No Murmur, No Gallop, Normal Peripheral Pulses, Regular Rate/Rhythm Breast Exam: Deferred Gastrointestinal: No Organomegaly, Non Tender, No Pulsatile Mass, Normal Bowel Sounds, Soft Genitalia: Deferred Pelvic: Deferred Rectal: Deferred Extremities: No calf tenderness, Normal capillary refill, Normal inspection, Normal range of motion, Non-tender, No pedal edema Musculoskeletal : Apperance: Normal Neurologic: Alert, early morning II-XII nml as Tested, No Motor Deficits, Normal Affect, Normal Mood, No Sensory Deficits Cerebellar Function: Normal Reflexes: Normal Skin: Dry, Normal Color, Warm Lymphatic: No Adenopathy Was a procedure done? Was a procedure done?: No Differential Dx Considerations may include: Anemia, electrolyte imbalance, viral syndrome, homeless, substance abuse X-Ray, Labs, Meds, VS Vital Signs Date Time Temp Pulse Resp B/P (MAP) Pulse Ox O2 Delivery O2 Flow Rate FiO2 07/27/24 20:44 97.8 91 16 140/98 (112) 96 Lab Test 07/27/24 21:50 07/27/24 00:00 Range/Units White Blood Count 19.2 H 4.4-10.8 10^3/uL Red Blood Count 4.67 4.5-5.90 10^6/uL Hemoglobin 13.9 13.5-17.5 g/dL Hematocrit 42.6 41.0-53.0 % Mean Corpuscular Volume 91.4 80.0-100.0 fL Mean Corpuscular Hemoglobin 29.9 28.0-32.0 pg Mean Corpuscular Hemoglobin Concent 32.7 32.0-36.0 g/dL Red Cell Distribution Width 14.1 11.8-14.3 % Platelet Count 254 140-450 10^3/uL Mean Platelet Volume 7.2 6.9-10.8 fL Neutrophils (%) (Auto) 85.8 H 37.0-80.0 % Lymphocytes (%) (Auto) 7.1 L 10.0-50.0 % Monocytes (%) (Auto) 5.8 0.0-12.0 % Eosinophils (%) (Auto) 1.1 0.0-7.0 % Basophils (%) (Auto) 0.2 0.0-2.0 % Neutrophils # (Auto) 16.5 H 1.6-8.6 10 ^3/uL Lymphocytes # (Auto) 1.4 0.4-5.4 10 ^3/uL Monocytes # (Auto) 1.1 0-1.3 10 ^3/uL Eosinophils # (Auto) 0.2 0-0.8 10 ^3/uL Basophils # (Auto) 0 0-0.2 10 ^3/uL Nucleated Red Blood Cells 0.0 % Sodium Level 139 136-145 mmol/L Potassium Level 4.0 3.5-5.1 mmol/L Chloride Level 108 H 98-107 mmol/L Carbon Dioxide Level 23 20-31 mmol/L Anion Gap 8 5-15 Blood Urea Nitrogen 14 9-23 mg/dL Creatinine 0.82 0.700-1.30 mg/dL Glomerular Filtration Rate Calc 112 >90 mL/min BUN/Creatinine Ratio 17.1 10.0-20.0 Serum Glucose 87 74-106 mg/dL Calcium Level 10.1 8.7-10.4 mg/dL Influenza Type A Antigen Negative Negative Influenza Type B Antigen Negative Negative SARS-CoV-2 Antigen (Rapid) Negative NEGATIVE Time of 1ST Reevaluation: 22:17 Reevaluation 1ST: Unchanged Patient Education/Counseling: Diagnosis, Treatment Family Education/Counseling: No Family Present Departure 1 Departure Time of Disposition: 00:21 (Patient likely with viral gastroenteritis. Patient's white count is elevated but likely secondary to vomiting. Discharge patient home with outpatient follow up) Impression: Primary Impression: Viral gastroenteritis Disposition: 01 HOME / SELF CARE / HOMELESS Condition: Stable Additional Instructions: You likely have gastroenteritis. It is important to stay well hydrated and well rested. This usually resolves within 1 week. If your symptoms worsen or you have any other concerns please return to the ER. Discharged With: Self Critical Care Note Critical Care Time?: No Stability Stability form required: No Heart Score Heart Score: Heart Score Response (Comments) Value History N/A 0 EKG N/A 0 Age N/A 0 Risk Factors N/A 0 Troponin N/A 0 Total 0 I personally scribed for ERIC FAJARDO MD ([email or web address]) on 07/27/24 at 22:14. Electronically submitted by Luis Santillan ([email or web address]). I personally scribed for ERIC FAJARDO MD ([email or web address]) on 07/27/24 at 22:20. Electronically submitted by Luis Santillan ([email or web address]). ERIC FAJARDO MD Jul 27, 2024 22:14
[2024-07-27 22:30] LABS: Basophils # (auto) 0 10 ^3/uL (0-0.2); Basophils % (auto) 0.2 % (0.0-2.0); Eosinophils # (auto) 0.2 10 ^3/uL (0-0.8); Eosinophils % (auto) 1.1 % (0.0-7.0); Hematocrit 42.6 % (41.0-53.0); Hemoglobin 13.9 g/dL (13.5-17.5); Lymphocytes # (auto) 1.4 10 ^3/uL (0.4-5.4); Lymphocytes % (auto) 7.1 % (10.0-50.0); Mean Corpuscular Hemoglobin 29.9 pg (28.0-32.0); Mean Corpuscular Hgb Conc. 32.7 g/dL (32.0-36.0); Mean Corpuscular Volume 91.4 fL (80.0-100.0); Monocytes # (auto) 1.1 10 ^3/uL (0-1.3); Monocytes % (auto) 5.8 % (0.0-12.0); Neutrophils # (auto) 16.5 10 ^3/uL (1.6-8.6); Neutrophils % (auto) 85.8 % (37.0-80.0); Platelet Count (auto) 254 10^3/uL (140-450); Red Blood Cells 4.67 10^6/uL (4.5-5.90); Red Cell Distribution Width 14.1 % (11.8-14.3); White Blood Cell 19.2 10^3/uL (4.4-10.8)
[2024-07-27 22:35] LABS: Sodium 139 mmol/L (136-145)
[2024-07-27 22:36] LABS: Anion Gap 8 (5-15); Calcium 10.1 mg/dL (8.7-10.4); Carbon Dioxide 23 mmol/L (20-31)
--- NOTE | 2024-07-27 22:36 | DVH ---
CHEST RADIOGRAPH Indication: cough Technique: Frontal and lateral view of the chest was obtained Comparison: None FINDINGS: Lines and Tubes: None Lungs: Increased interstitial prominence Pleura: No effusion. No pneumothorax. Cardiomediastinal contours: Unremarkable Bones: Unremarkable IMPRESSION: Pulmonary vascular congestion versus viral pneumonitis.
[2024-07-27 22:41] LABS: BUN/Creatinine Ratio 17.1 (10.0-20.0); Blood Urea Nitrogen 14 mg/dL (9-23); Glucose 87 mg/dL (74-106)
[2024-07-27 22:42] LABS: Chloride 108 mmol/L (98-107)
[2024-07-27 23:03] LABS: COVID19 ANTIGEN SOFIA FIA NEGATIVE (NEGATIVE); Rapid Influenza A Negative (Negative); Rapid Influenza B Negative (Negative)
[2024-07-28] MEDS ORDERED: FAMOTIDINE (10MG/ML) 2ML VL IV ONE
[2024-07-28] MEDS ORDERED: ONDANSETRON HCL 4 MG/2 ML VIAL IV ONE
[2024-07-28] MEDS ORDERED: SODIUM CHLORIDE 0.9% 1,000 ML IV ONE
[2024-07-28] MEDS ORDERED: ACETAMINOPHEN 325 MG TAB PO ONE
== END 2024-07-28 02:09 | disposition home or self-care (01) ==
LOC: EDUNIT# 20:44 → ER 20:44 → EDBD 20:44 → ER 07-28 02:09
DX: A08.4 Viral intestinal infection, unspecified (principal); F17.210 Nicotine dependence, cigarettes, uncomplicated; Z59.00 Homelessness unspecified; Z20.822 Contact with and (suspected) exposure to COVID-19
CPT/HCPCS: 36415; 71046; 80048; 85025; 87426; 87804

== ENCOUNTER 2024-09-11 05:54 | Emergency (ER) | payer MEDICAID ==
[~2024-09-11] VITALS: Ht 180.3 cm; Wt 75.0 kg
--- NOTE | 2024-09-11 06:27 | ED.PDOC ---
Musculoskeletal HPI Comments 44 year old male brought in by EMS presents to the ED with chief complaints of insect bite. Patient reports that he believes he has been bitten by a brown recluse spider a few days ago when working in a garage, noting swelling and pain to his left elbow. Patient relays that he had taken Ibuprofen for pain relief. Patient denies any N/V, numbness, weakness, dizziness, headache, or chest pain. Chief Complaint: Insect Bite Time Seen by MD: 06:23 Primary Care Provider: NONE Reviewed Notes: Nurses Notes, Autoglazier Notes, Medications, Allergies Allergies: Coded Allergies: NO KNOWN ALLERGIES (Unverified , 01/13/20) Home Meds Active Scripts Doxycycline Hyclate (Doxycycline Hyclate) 100 Mg Cap, 1 CAP PO BID for 7 Days, #14 CAP Prov:TITA BRINK 05/28/24 Ibuprofen Micronized (MOTRIN TABLET) 600 Mg Tb, 600 MG PO TID PRN, #40 TAB *Black box warning-NSAIDS can increase risk of [place] & hypertension, GI irritation, ulceration, bleed, perferation. Do not use post cardiac surgery. Use short duration/lowest effective dose. Prov:NAT HENSLEY MD 05/06/24 Reported Medications Nabumetone (Nabumetone) 500 Mg Tab, 1 TAB PO BID, TAB 02/03/24 Information Source: Patient, Emergency Med Personnel Mode of Arrival: EMS Location: Left Extremity Location: Elbow Timing: Hours Prehospital treatment: None Severity: Moderate Able to Move Extremity: Yes Bear Weight: Fully Pain: Moderate Mechanism: Spontaneous Circumstances: Unknown Onset of Symptoms: Spontaneous Symptoms: Swelling, Pain DVT Risk Factors: NONE Last Tetanus: Unknown Associated signs and symptoms: Elbow pain Past Medical History PAST MEDICAL HISTORY: Denies Surgical History: Denies all surgeries Family History Family History: Reviewed,noncontributory to illness Social History Smoker: Cigarettes, Less Than 1 Pack/Day Alcohol: Occasionally Drugs: Methamphetamine Lives In: Homeless Constitutional: denies: chills, diaphoresis, fatigue, fever, malaise, sweats, weakness, others EENTM: denies: blurred vision, double vision, ear bleeding, ear discharge, ear drainage, ear pain, ear ringing, eye pain, eye redness, hearing loss, mouth pain, mouth swelling, nasal discharge, nose bleeding, nose congestion, nose pain, photophobia, tearing, throat pain, throat swelling, voice changes, others Respiratory: denies: cough, hemoptysis, orthopnea, SOB at rest, shortness of breath, SOB with excertion, stridor, wheezing, others Cardiovascular: denies: chest pain, dizzy spells, diaphoresis, Dyspnea on exertion, edema, irregular heart beat, left arm pain, lightheadedness, palpitations, PND, syncope, others Gastrointestinal: denies: abdomen distended, abdominal pain, blood streaked bowels, constipated, diarrhea, dysphagia, difficulty swallowing, hematemesis, melena, nausea, poor appetite, poor fluid intake, rectal bleeding, rectal pain, vomiting, others Genitourinary: denies: burning, dysuria, flank pain, frequency, hematuria, incontinence, penile discharge, penile sore, pain, testicle pain, testicle swelling, urgency, others Neurological: denies: dizziness, fainting, headache, left sided numbness, left sided weakness, numbness, paresthesia, pre-existing deficit, right sided numbn ess, right sided weakness, seizure, speech problems, tingling, tremors, weakness, others Musculoskeletal: reports: others (left elbow swelling and pain); denies: back pain, gout, joint pain, joint swelling, muscle pain, muscle stiffness, neck pain Integumetry: denies: bruises, change in color, change in hair/nails, dryness, laceration, lesions, lumps, rash, wounds, others Allergic/Immunocompromised: denies: Difficulty Healing, Frequent Infections, Hives, Itching, others Hematologic/Lymphatic: denies: anemia, blood clots, easy bleeding, easy bruising, swollen glands, others Endocrine: denies: excessive hunger, excessive sweating, excessive thirst, excessive urination, flushing, intolerance to cold, intolerance to heat, unexplained weight gain, unexplained weight loss, others Psychiatric: denies: anxiety, bipolar disorder, depression, hopeless, panic disorder, schizophrenia, sleepless, suicidal, others All Other Systems: Reviewed and Negative Physical Exam General Appearance: Moderate Distress, Normal HEENT: Normal ENT Inspection, PERRL/EOMI Neck: Full Range of Motion, Non-Tender, Normal, Normal Inspection Respiratory: Chest Non-Tender, Lungs Clear, No Accessory Muscle Use, No Respiratory Distress, Normal Breath Sounds Cardiovascular: No Edema, No JVD, No Murmur, No Gallop, Normal Peripheral Pulses, Regular Rate/Rhythm Breast Exam: Deferred Gastrointestinal: No Organomegaly, Non Tender, No Pulsatile Mass, Normal Bowel Sounds, Soft Genitalia: Deferred Pelvic: Deferred Rectal: Deferred Extremities: No calf tenderness, Normal capillary refill, Normal inspection, Normal range of motion, Non-tender, No pedal edema Musculoskeletal : Apperance: Normal Neurologic: Alert, 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 Was a procedure done?: No Differential Diagnosis EXT Differential Diagnosis: Cellulitis, Strain X-Ray, Labs, Meds, VS Vital Signs Date Time Temp Pulse Resp B/P (MAP) Pulse Ox O2 Delivery O2 Flow Rate FiO2 09/11/24 06:30 97.3 87 16 132/78 (96) 100 97.3 09/11/24 06:30 87 16 100 Room Air 09/11/24 06:00 97.5 87 16 132/78 (96) 100 Patient alert. Has mild swelling of the left elbow. Possibly from a sting. Vitals stable. Denies use of drugs. Lungs clear. Not in distress. States that he has a place to live. Was given Rocephin. Was given prescription of Levaquin antibiotic. No skin breakage. Not septic. Explained to the patient. Was told to follow up with his primary care physician. Was told to come back if there is any problem. Time of 1ST Reevaluation: 07:23 Reevaluation 1ST: Improved Patient Education/Counseling: Diagnosis, Treatment Family Education/Counseling: No Family Present Departure 1 Departure Time of Disposition: 07:18 Impression: Primary Impression: Cellulitis of left forearm Disposition: 01 HOME / SELF CARE / HOMELESS Condition: Good e-Prescriptions Levofloxacin Hemihydrate (LEVOFLOXACIN) 500 Mg Tab 1 TAB PO DAILY for 10 Days, #10 TAB Prov: MAGUE MANCUSO MD 09/11/24 Discharged With: Self Critical Care Note Critical Care Time?: No Stability Stability form required: No Heart Score Heart Score: Heart Score Response (Comments) Value History N/A 0 EKG N/A 0 Age N/A 0 Risk Factors N/A 0 Troponin N/A 0 Total 0 I personally scribed for MAGUE MANCUSO MD ([email or web address]) on 09/11/24 at 06:27. Electronically submitted by Elvin White ([email or web address]). MAGUE MANCUSO MD Sep 11, 2024 06:27
[2024-09-11 06:30] VITALS: BP 132/78; PULSE 87; RESP 16; TEMP 97.3; O2SAT 100
[2024-09-11] MEDS ORDERED: LEVO500T91 PO (07:19)
[2024-09-11] MEDS ORDERED: cefTRIAXone SOD 1,000 MG VL IM ONE (07:30)
[2024-09-11 08:14] LABS: Sodium 141 mmol/L (136-145)
[2024-09-11 08:15] LABS: Anion Gap 10 (5-15); Carbon Dioxide 22 mmol/L (20-31)
[2024-09-11 08:20] LABS: BUN/Creatinine Ratio 13.8 (10.0-20.0); Blood Urea Nitrogen 13 mg/dL (9-23)
[2024-09-11 08:23] LABS: Chloride 109 mmol/L (98-107); Glucose 131 mg/dL (74-106)
== END 2024-09-11 07:31 | disposition home or self-care (01) ==
LOC: ER 05:54 → EDBD 05:54 → ER 07:31
DX: S50.362A Insect bite (nonvenomous) of left elbow, initial encounter (principal); L03.114 Cellulitis of left upper limb; F17.210 Nicotine dependence, cigarettes, uncomplicated; Z59.00 Homelessness unspecified; Z79.899 Other long term (current) drug therapy; W57.XXXA Bitten or stung by nonvenomous insect and other nonvenomous arthropods, initial encounter; Y93.89 Activity, other specified; Y92.89 Other specified places as the place of occurrence of the external cause; Y99.8 Other external cause status
CPT/HCPCS: 36415; 80048

== ENCOUNTER 2024-09-13 07:43 | Emergency (ER) | payer MEDICAID ==
[~2024-09-13] VITALS: Ht 180.3 cm; Wt 70.6 kg
[~2024-09-13 07:43] MED LIST changes: +LEVO500T91 PO
--- NOTE | 2024-09-13 08:02 | ED.PDOC ---
SOB-HPI HPI Comments 44 y/o M, presents to the ED for CC of shortness of breath. Patient states, that he has been experiencing shortness of breath x30 minutes. Patient's oxygen saturation in triage read at 100%. Patient relays, that he is currently homeless. Patient smokes tobacco, drinks occasionally, and uses illicit street drugs. No other associated symptom's, modifiers, recent injuries or sick contacts at this time. Chief Complaint: Shortness of Breath Time Seen by MD: 07:55 Primary Care Provider: NONE Reviewed notes: Nurses Notes, Medications, Allergies Information Source: Patient Mode of Arrival: Ambulatory Severity: Mild Timing: Minutes Duration: Since onset Context: Spontaneous Onset PE Risk Factors: None History of: None Prehospital treatment: None Modifying Factors: Nothing Associated Signs and Symptoms: None Past Medical History PAST MEDICAL HISTORY: Denies Surgical History: Denies all surgeries Family History Family History: Reviewed,noncontributory to illness Social History Smoker: Cigarettes, Less Than 1 Pack/Day Alcohol: Occasionally Drugs: Methamphetamine Lives In: Homeless Constitutional: denies: chills, diaphoresis, fatigue, fever, malaise, sweats, weakness, others EENTM: denies: blurred vision, double vision, ear bleeding, ear discharge, ear drainage, ear pain, ear ringing, eye pain, eye redness, hearing loss, mouth pain, mouth swelling, nasal discharge, nose bleeding, nose congestion, nose pain, photophobia, tearing, throat pain, throat swelling, voice changes, others Respiratory: reports: shortness of breath; denies: cough, hemoptysis, orthopnea, SOB at rest, SOB with excertion, stridor, wheezing, others Cardiovascular: denies: chest pain, dizzy spells, diaphoresis, Dyspnea on exertion, edema, irregular heart beat, left arm pain, lightheadedness, palpitations, PND, syncope, others Gastrointestinal: denies: abdomen distended, abdominal pain, blood streaked bowels, constipated, diarrhea, dysphagia, difficulty swallowing, hematemesis, melena, nausea, poor appetite, poor fluid intake, rectal bleeding, rectal pain, vomiting, others Genitourinary: denies: burning, dysuria, flank pain, frequency, hematuria, incontinence, penile discharge, penile sore, pain, testicle pain, testicle swelling, urgency, others Neurological: denies: dizziness, fainting, headache, left sided numbness, left sided weakness, numbness, paresthesia, pre-existing deficit, right sided numbness, right sided weakness, seizure, speech problems, tingling, tremors, w eakness, others Musculoskeletal: denies: back pain, gout, joint pain, joint swelling, muscle pain, muscle stiffness, neck pain, others Integumetry: denies: bruises, change in color, change in hair/nails, dryness, laceration, lesions, lumps, rash, wounds, others Allergic/Immunocompromised: denies: Difficulty Healing, Frequent Infections, Hives, Itching, others Hematologic/Lymphatic: denies: anemia, blood clots, easy bleeding, easy bruising, swollen glands, others Endocrine: denies: excessive hunger, excessive sweating, excessive thirst, excessive urination, flushing, intolerance to cold, intolerance to heat, unexplained weight gain, unexplained weight loss, others Psychiatric: denies: anxiety, bipolar disorder, depression, hopeless, panic disorder, schizophrenia, sleepless, suicidal, others All Other Systems: Reviewed and Negative Physical Exam General Appearance: Moderate Distress HEENT: Normal ENT Inspection, Pharynx Normal, TMs Normal Neck: Full Range of Motion, Non-Tender, Normal, Normal Inspection Respiratory: Lungs Clear Cardiovascular: No Edema, No JVD, No Murmur, No Gallop, Normal Peripheral Pulses, Regular Rate/Rhythm Breast Exam: Deferred Gastrointestinal: No Organomegaly, Non Tender, No Pulsatile Mass, Normal Bowel Sounds, Soft Genitalia: Deferred Pelvic: Deferred Rectal: Deferred Extremities: No calf tenderness, Normal capillary refill, Normal inspection, Normal range of motion, Non-tender, No pedal edema Musculoskeletal : Apperance: Normal Neurologic: Alert, smart energy specialist II-XII nml as Tested, No Motor Deficits, Normal Affect, Normal Mood, No Sensory Deficits Cerebellar Function: Normal Reflexes: Normal Skin: Dry, Normal Color, Warm Peripheral Pulses: 3+ Radial (R), 3+ Radial (L) Lymphatic: No Adenopathy Was a procedure done? Was a procedure done?: No Differential Dx Differential Diagnosis: Anxiety, Asthma, Bronchitis, Panic Attack, Sinusitis, Pharyngitis, URI X-Ray, Labs, Meds, VS Vital Signs Date Time Temp Pulse Resp B/P (MAP) Pulse Ox O2 Delivery O2 Flow Rate FiO2 09/13/24 08:38 84 18 98 Room Air* 0 21 09/13/24 08:31 97.7 84 20 120/97 (105) 95 97.7 09/13/24 08:13 97 Room Air* 0 09/13/24 08:00 18 100 Room Air* 0 09/13/24 07:56 98.5 60 18 131/102 (112) 100 Lab Test 09/13/24 08:44 Range/Units White Blood Count 8.9 4.4-10.8 10^3/uL Red Blood Count 6.03 H 4.5-5.90 10^6/uL Hemoglobin 18.4 H 13.5-17.5 g/dL Hematocrit 54.4 H 41.0-53.0 % Mean Corpuscular Volume 90.3 80.0-100.0 fL Mean Corpuscular Hemoglobin 30.5 28.0-32.0 pg Mean Corpuscular Hemoglobin Concent 33.8 32.0-36.0 g/dL Red Cell Distribution Width 13.5 11.8-14.3 % Platelet Count 225 140-450 10^3/uL Mean Platelet Volume 7.4 6.9-10.8 fL Neutrophils (%) (Auto) 68.9 37.0-80.0 % Lymphocytes (%) (Auto) 20.9 10.0-50.0 % Monocytes (%) (Auto) 8.4 0.0-12.0 % Eosinophils (%) (Auto) 1.2 0.0-7.0 % Basophils (%) (Auto) 0.6 0.0-2.0 % Neutrophils # (Auto) 6.2 1.6-8.6 10 ^3/uL Lymphocytes # (Auto) 1.9 0.4-5.4 10 ^3/uL Monocytes # (Auto) 0.8 0-1.3 10 ^3/uL Eosinophils # (Auto) 0.1 0-0.8 10 ^3/uL Basophils # (Auto) 0.1 0-0.2 10 ^3/uL Nucleated Red Blood Cells 0.2 % Platelet Estimate Adequate Clumped Platelets Few Sodium Level Pending Potassium Level Pending Chloride Level Pending Carbon Dioxide Level Pending Anion Gap Pending Blood Urea Nitrogen Pending Creatinine Pending Glomerular Filtration Rate Calc Pending BUN/Creatinine Ratio Pending Serum Glucose Pending Calcium Level Pending Current Medications Medications (Trade) Dose Ordered Sig/Isis Route Start Time Stop Time Status Last Admin Albuterol (Ventolin Medneb) 5 mg ONCE ONCE NEB 09/13/24 08:00 09/13/24 08:01 DC 09/13/24 08:13 Ipratropium [place] (Atrovent Medneb) 0.5 mg ONCE ONCE NEB 09/13/24 08:00 09/13/24 08:01 DC 09/13/24 08:13 [place] [address] Ph: [phone] DIAGNOSTIC IMAGING Diagnostic Imaging Report : [id number] Signed PATIENT: CAITLIN CANDELARIA LACCT: [id number] UNIT: [id number] : 1980 LOC: ER ROOM / BED: / AGE / SEX: 44 / M ADM STATUS: REG ER SERVICE [id number] ORDERING PHYSICIAN: MAGUE MANCUSO MD PROCEDURE(s): CXRP - CHEST PORTABLE REASON: sob ORDER NUMBER(s): [id number], ACCESSION NUMBER(s): [id number] XY CHEST PORTABLE, HISTORY: sob COMPARISON: XY CHEST XRAY 1 VIEW on DOS: 06/14/24, XY CHEST XRAY 1 VIEW on DOS: 05/14/24, CHEST XRAY 1 VIEW on DOS: 01/13/20 XY CHEST XRAY 1 VIEW on DOS: 06/14/24, XY CHEST XRAY 1 VIEW on DOS: 05/14/24, CHEST XRAY 1 VIEW on DOS: 01/13/20 TECHNICAL DATA: 1 view of the chest was obtained. FINDINGS: Lines and tubes: None Cardiomediastinal silhouette: normal Pulmonary vasculature: normal Lung expansion: normal Lung airspace: normal Lung interstitium: normal Pleura: normal Pneumothorax: no Bones: Unremarkable Other: no IMPRESSION: No acute intrathoracic abnormality. ATED BY: JOE JACKSON MD DICTATED DATE/TIME: 09/13/24909 SIGNED BY: JOE JACKSON MD SIGNED DATE/TIME: 09/13/24909 CC: Patient alert. Complaining of shortness a breath. Was given breathing treatment. Vitals stable. No leg swelling. Smoke cigarettes. Counseled patient on effects of smoking cigarettes for 15 minutes. Explained to the patient. Continue monitoring. Chest x-ray reviewed does not show any acute process. Possible pneumonitis. Was given prescription of amoxicillin antibiotic. Was told to follow up with his primary care physician. Was told to come back if there is any problem. Time of 1ST Reevaluation: 08:25 Reevaluation 1ST: Unchanged Patient Education/Counseling: Diagnosis, Treatment Family Education/Counseling: No Family Present Departure 1 Departure Time of Disposition: 08:24 Impression: Primary Impression: Pneumonitis Disposition: 01 HOME / SELF CARE / HOMELESS Condition: Good e-Prescriptions Amoxicillin Trihydrate (Amoxicillin) 500 Mg Cap 1 CAP PO TID for 10 Days, #30 CAP Prov: MAGUE MANCUSO MD 09/13/24 Discharged With: Self Critical Care Note Critical Care Time?: No Stability Stability form required: No Heart Score Heart Score: Heart Score Response (Comments) Value History N/A 0 EKG N/A 0 Age N/A 0 Risk Factors N/A 0 Troponin N/A 0 Total 0 I personally scribed for MAGUE MANCUSO MD ([email or web address]) on 09/13/24 at 08:02. Electronically submitted by Adriane Bella ([email or web address]). I personally scribed for AMGUE MANCUSO MD ([email or web address]) on 09/13/24 at 09:36. Electronically submitted by Adriane Bella ([email or web address]). MAGUE MANCUSO MD Sep 13, 2024 08:02
[2024-09-13] MEDS: ALBUTEROL SULF 2.5 MG/0.5ML(0.5%) NEB SOLN NEB ONE (08:13)
[2024-09-13] MEDS: IPRATROPIUM BROM 0.5 MG/2.5ML INH SOL NEB ONE (08:13)
[2024-09-13] MEDS ORDERED: AMOX500C2 PO (08:25)
[2024-09-13 08:38] VITALS: PULSE 84; RESP 18; O2SAT 98
[2024-09-13 08:59] LABS: Basophils # (auto) 0.1 10 ^3/uL (0-0.2); Basophils % (auto) 0.6 % (0.0-2.0); Eosinophils # (auto) 0.1 10 ^3/uL (0-0.8); Eosinophils % (auto) 1.2 % (0.0-7.0); Hematocrit 54.4 % (41.0-53.0); Hemoglobin 18.4 g/dL (13.5-17.5); Lymphocytes # (auto) 1.9 10 ^3/uL (0.4-5.4); Lymphocytes % (auto) 20.9 % (10.0-50.0); Mean Corpuscular Hemoglobin 30.5 pg (28.0-32.0); Mean Corpuscular Hgb Conc. 33.8 g/dL (32.0-36.0); Mean Corpuscular Volume 90.3 fL (80.0-100.0); Monocytes # (auto) 0.8 10 ^3/uL (0-1.3); Monocytes % (auto) 8.4 % (0.0-12.0); Neutrophils # (auto) 6.2 10 ^3/uL (1.6-8.6); Neutrophils % (auto) 68.9 % (37.0-80.0); Nucleated Red Blood Cells % 0.2 %; Platelet Count (auto) 225 10^3/uL (140-450); Red Blood Cells 6.03 10^6/uL (4.5-5.90); Red Cell Distribution Width 13.5 % (11.8-14.3); White Blood Cell 8.9 10^3/uL (4.4-10.8)
--- NOTE | 2024-09-13 09:12 | DVH ---
XY CHEST PORTABLE, HISTORY: sob COMPARISON: XY CHEST XRAY 1 VIEW on DOS: 06/14/24, XY CHEST XRAY 1 VIEW on DOS: 05/14/24, CHEST XRAY 1 VIEW on DOS: 01/13/20 XY CHEST XRAY 1 VIEW on DOS: 06/14/24, XY CHEST XRAY 1 VIEW on DOS: 05/14/24, CHEST XRAY 1 VIEW on DOS: 01/13/20 TECHNICAL DATA: 1 view of the chest was obtained. FINDINGS: Lines and tubes: None Cardiomediastinal silhouette: normal Pulmonary vasculature: normal Lung expansion: normal Lung airspace: normal Lung interstitium: normal Pleura: normal Pneumothorax: no Bones: Unremarkable Other: no IMPRESSION: No acute intrathoracic abnormality.
[2024-09-13 09:34] LABS: Platelet Estimate Adequate
[2024-09-13 11:39] LABS: Chloride 101 mmol/L (98-107); Sodium 137 mmol/L (136-145)
[2024-09-13 11:40] LABS: Anion Gap 12 (5-15); Carbon Dioxide 24 mmol/L (20-31)
[2024-09-13 11:43] LABS: Calcium 10.5 mg/dL (8.7-10.4)
[2024-09-13 11:45] LABS: BUN/Creatinine Ratio 14.1 (10.0-20.0); Blood Urea Nitrogen 11 mg/dL (9-23); Glucose 92 mg/dL (74-106)
[2024-09-13 11:51] VITALS: BP 135/91; PULSE 99; RESP 18; TEMP 98.9; O2SAT 99
== END 2024-09-13 11:55 | disposition home or self-care (01) ==
LOC: ER 07:43
DX: J18.9 Pneumonia, unspecified organism (principal); F17.210 Nicotine dependence, cigarettes, uncomplicated; Z59.00 Homelessness unspecified
CPT/HCPCS: 36415; 71045; 80048; 85025; 94640

== ENCOUNTER 2024-12-09 21:05 | Emergency (ER) | payer MEDICAID ==
[~2024-12-09] VITALS: Ht 180.3 cm; Wt 71.9 kg
[~2024-12-09 21:05] MED LIST changes: +AMOX500C2 PO
[2024-12-09 21:32] VITALS: BP 122/80; PULSE 92; RESP 20; TEMP 98.4; O2SAT 98
[2024-12-09 22:11] LABS: Urine Bacteria None Seen /hpf (None Seen)
[2024-12-09 22:22] LABS: Urine Blood TRACE /uL (Negative); Urine Clarity Clear (Clear); Urine Color Light-Yellow (Yellow); Urine Protein, UAD Negative (Negative); Urine Specific Gravity 1.032 (1.001-1.035); Urine Squamous Epithelial Cell None Seen /hpf (<5); Urine Urobilinogen Normal (Negative); Urine WBC 105 /HPF (0-3)
[2024-12-09] MEDS: HYDROcodone-ACET 10/325MG TAB PO ONE (22:36)
[2024-12-09] MEDS: KETOROLAC TROMETH 60MG/2ML VIAL IM ONE (22:37)
--- NOTE | 2024-12-09 22:52 | DVH ---
Exam: CT CT AB PEL WO CON-NO ORAL OR IV History: LOWER ABD PX Comparison Study: CT CT AB PEL WO CON-NO ORAL OR IV on DOS: 07/09/23, UPEWO on DOS: 04/27/22 TECHNIQUE: Multidetector CT of the abdomen was performed from lung bases to pubic symphysis. Imaging was performed without IV contrast. Axial, coronal and sagittal multiplanar reformats were obtained fr om the axial data set by the technologist. Radiation Dose Information: CT Dose: CTDI volume is 5.26 mGy. Dose-length product is 279.81 mGy*cm FINDINGS: Evaluation of solid organs is limited due to lack of intravenous contrast use. Findings: Lung Bases: No acute or significant lung base finding. Normal heart size. No pleural or pericardial effusion. Liver: The liver is normal in size. No focal lesions. Gallbladder and Biliary Tree: Unremarkable Spleen: Unremarkable Pancreas: The pancreas is grossly normal in appearance. Adrenal Glands: Unremarkable Kidneys: Kidneys are grossly normal without calculi or hydronephrosis. Bladder: Grossly unremarkable for degree of distention. Bowel: Food and fluid distended stomach. Small bowel and colon are normal in caliber and distribution . The appendix is not visualized; however, no secondary findings of acute appendicitis identified. Ascites: Absent Lymphadenopathy: No mesenteric, retroperitoneal or periportal lymphadenopathy. Abdominal Wall and Mesentery: Unremarkable. Vasculature: The visualized abdominal aorta is normal in size and caliber. Evaluation of abdominal a nd pelvic vessels is limited due to lack of intravenous contrast. Pelvic Organs: Unremarkable Musculoskeletal: No aggressive focal bony lesions, acute fractures or dislocation. Soft tissues: Unremarkable IMPRESSION: 1. No findings of bowel obstruction. Stool throughout the colon. 2. Stomach distended with food liquid. 3. Bowel obstruction. Stool throughout the colon. 4. Radiation optimization: All CT scans at this facility use at least one of these dose optimization techniques: automated exposure control mA and/or kV adjustment per patient size (includes targeted e xams where dose is matched to clinical indication) or iterative reconstruction.
[2024-12-09 23:08] LABS: Basophils # (auto) 0 10 ^3/uL (0-0.2); Basophils % (auto) 0.6 % (0.0-2.0); Eosinophils # (auto) 0.2 10 ^3/uL (0-0.8); Eosinophils % (auto) 2.6 % (0.0-7.0); Hematocrit 35.9 % (41.0-53.0); Lymphocytes # (auto) 2.2 10 ^3/uL (0.4-5.4); Lymphocytes % (auto) 29.7 % (10.0-50.0); Mean Corpuscular Hemoglobin 29.7 pg (28.0-32.0); Mean Corpuscular Hgb Conc. 33.5 g/dL (32.0-36.0); Mean Corpuscular Volume 88.8 fL (80.0-100.0); Monocytes # (auto) 0.8 10 ^3/uL (0-1.3); Monocytes % (auto) 10.4 % (0.0-12.0); Neutrophils # (auto) 4.2 10 ^3/uL (1.6-8.6); Neutrophils % (auto) 56.7 % (37.0-80.0); Platelet Count (auto) 239 10^3/uL (140-450); Red Blood Cells 4.04 10^6/uL (4.5-5.90); White Blood Cell 7.4 10^3/uL (4.4-10.8)
--- NOTE | 2024-12-09 23:11 | ED.PDOC ---
General HPI Comments THIS IS A 44-YEAR-OLD MALE PRESENTS TO THE ED WITH C/C OF LOWER ABDOMINAL PAIN WITH N/V AND UNABLE TO STAND TODAY, X 1 WEEK. ALSO REPORTS BURNING WITH URINATION. DENIES ANY DIARRHEA NOTES NO CHEST PAIN, DIFFICULTY BREATHING, SHORTNESS OF BREATH. WAS THIS A.M. STATES HAD SOME CONSTIPATION. Chief Complaint: Urinary Time Seen by MD: 21:21 Primary Care Provider: NONE Reviewed notes: Nurses Notes, Medications, Allergies Allergies: Coded Allergies: NO KNOWN ALLERGIES (Unverified , 01/13/20) Home Meds Active Scripts Amoxicillin Trihydrate (Amoxicillin) 500 Mg Cap, 1 CAP PO TID for 10 Days, #30 CAP Prov:MAGUE MANCUSO MD 09/13/24 Levofloxacin Hemihydrate (LEVOFLOXACIN) 500 Mg Tab, 1 TAB PO DAILY for 10 Days, #10 TAB Prov:MAGUE MANCUSO MD 09/11/24 Doxycycline Hyclate (Doxycycline Hyclate) 100 Mg Cap, 1 CAP PO BID for 7 Days, #14 CAP Prov:TITA BRINK 05/28/24 Ibuprofen Micronized (MOTRIN TABLET) 600 Mg Tb, 600 MG PO TID PRN, #40 TAB *Black box warning-NSAIDS can increase risk of GA & hypertension, GI irritation, ulceration, bleed, perferation. Do not use post cardiac surgery. Use short duration/lowest effective dose. Prov:NAT HENSLEY MD 05/06/24 Reported Medications Nabumetone (Nabumetone) 500 Mg Tab, 1 TAB PO BID, TAB 02/03/24 Information Source: Patient Mode of Arrival: Ambulatory Past Medical History PAST MEDICAL HISTORY: Denies Surgical History: Denies all surgeries Family History Family History: Reviewed,noncontributory to illness Social History Smoker: Cigarettes, Less Than 1 Pack/Day Alcohol: Occasionally Drugs: Methamphetamine Lives In: Homeless Constitutional: denies: chills, diaphoresis, fatigue, fever, malaise, sweats, weakness, others EENTM: denies: blurred vision, double vision, ear bleeding, ear discharge, ear drainage, ear pain, ear ringing, eye pain, eye redness, hearing loss, mouth pain, mouth swelling, nasal discharge, nose bleeding, nose congestion, nose pain, photophobia, tearing, throat pain, throat swelling, voice changes, others Respiratory: denies: cough, hemoptysis, orthopnea, SOB at rest, shortness of breath, SOB with excertion, stridor, wheezing, others Gastrointestinal: reports: abdomen distended, abdominal pain, constipated, nausea; denies: blood streaked bowels, diarrhea, dysphagia, difficulty swallowing, hematemesis, melena, poor appetite, poor fluid intake, rectal bleeding, rectal pain, vomiting, others Genitourinary: denies: burning, dysuria, flank pain, frequency, hematuria, incontinence, penile discharge, penile sore, pain, testicle pain, testicle swelling, urgency, others Neurological: denies: dizziness, fainting, headache, left sided numbness, left sided weakness, numbness, paresthesia, pre-existing deficit, right sided numbness, right sided weakness, seizure, speech problems, tingling, tremors, weakness, others Musculoskeletal: denies: back pain, gout, joint pain, joint swelling, muscle pain, muscle stiffness, neck pain, others Integumetry: denies: bruises, change in color, change in hair/nails, dryness, laceration, lesions, lumps, rash, wounds, others Allergic/Immunocompromised: denies: Difficulty Healing, Frequent Infections, Hives, Itching, others Hematologic/Lymphatic: denies: anemia, blood clots, easy bleeding, easy bruising, swollen glands, others Endocrine: denies: excessive hunger, excessive sweating, excessive thirst, excessive urination, flushing, intolerance to cold, intolerance to heat, unexplained weight gain, unexplained weight loss, others Psychiatric: denies: anxiety, bipolar disorder, depression, hopeless, panic disorder, schizophrenia, sleepless, suicidal, others Physical Exam General Appearance: No Apparent Distress, Normal HEENT: Pharynx Normal Neck: Full Range of Motion, Non-Tender Respiratory: Lungs Clear, No Respiratory Distress, Normal Breath Sounds Cardiovascular: No Murmur, Normal Peripheral Pulses, Regular Rate/Rhythm Breast Exam: Deferred Gastrointestinal: Diffuse, Distended, No Organomegaly, No Pulsatile Mass, Normal Bowel Sounds, Soft Genitalia: Deferred Pelvic: Deferred Rectal: Deferred Extremities: Normal capillary refill, Normal inspection, Normal range of motion, Non-tender, No pedal edema Musculoskeletal : Apperance: Normal Neurologic: Alert, dust mop maker II-XII nml as Tested, No Motor Deficits, Normal Affect, Normal Mood, No Sensory Deficits Cerebellar Function: Normal Reflexes: Normal Skin: Dry, Normal Color, Warm Lymphatic: No Adenopathy Was a procedure done? Was a procedure done?: No Differential Diagnosis Kidney stone (Female): N/A Kidney stone (Male): Bowel obstruction, Cholelithiasis, Cholangitis, Pyelonephritis, Urinary obstruction, Urolithiasis, Urinary tract infection X-Ray, Labs, Meds, VS Vital Signs Date Time Temp Pulse Resp B/P (MAP) Pulse Ox O2 Delivery O2 Flow Rate FiO2 12/09/24 21:32 98.4 92 20 122/80 (94) 98 98.4 12/09/24 21:32 92 20 98 Room Air 12/09/24 21:32 98.4 92 20 122/80 (94) 98 98.4 Lab Test 12/09/24 22:55 12/09/24 22:10 Range/Units White Blood Count 7.4 4.4-10.8 10^3/uL Red Blood Count 4.04 L 4.5-5.90 10^6/uL Hemoglobin 12.0 L 13.5-17.5 g/dL Hematocrit 35.9 L 41.0-53.0 % Mean Corpuscular Volume 88.8 80.0-100.0 fL Mean Corpuscular Hemoglobin 29.7 28.0-32.0 pg Mean Corpuscular Hemoglobin Concent 33.5 32.0-36.0 g/dL Red Cell Distribution Width 14.0 11.8-14.3 % Platelet Count 239 140-450 10^3/uL Mean Platelet Volume 6.7 L 6.9-10.8 fL Neutrophils (%) (Auto) 56.7 37.0-80.0 % Lymphocytes (%) (Auto) 29.7 10.0-50.0 % Monocytes (%) (Auto) 10.4 0.0-12.0 % Eosinophils (%) (Auto) 2.6 0.0-7.0 % Basophils (%) (Auto) 0.6 0.0-2.0 % Neutrophils # (Auto) 4.2 1.6-8.6 10 ^3/uL Lymphocytes # (Auto) 2.2 0.4-5.4 10 ^3/uL Monocytes # (Auto) 0.8 0-1.3 10 ^3/uL Eosinophils # (Auto) 0.2 0-0.8 10 ^3/uL Basophils # (Auto) 0 0-0.2 10 ^3/uL Nucleated Red Blood Cells 0.0 % Sodium Level 143 136-145 mmol/L Potassium Level 3.9 3.5-5.1 mmol/L Chloride Level 110 H 98-107 mmol/L Carbon Dioxide Level 26 20-31 mmol/L Anion Gap 7 5-15 Blood Urea Nitrogen 20 9-23 mg/dL Creatinine 0.89 0.700-1.30 mg/dL Glomerular Filtration Rate Calc 109 >90 mL/min BUN/Creatinine Ratio 22.5 H 10.0-20.0 Serum Glucose 96 74-106 mg/dL Calcium Level 9.0 8.7-10.4 mg/dL Total Bilirubin 0.2 0.2-1.0 mg/dL Aspartate Amino Transferase (AST) 19 13-40 U/L Alanine Aminotransferase (ALT) < 9 7-40 U/L Alkaline Phosphatase 112 46-116 U/L Total Protein 6.0 5.7-8.2 g/dL Albumin 4.0 3.2-4.8 g/dL Lipase 42 12-53 U/L Urine Color Light-yellow Yellow Urine Clarity Clear Clear Urine pH 5.0 5.0-9.0 Urine Specific [place] 1.032 1.001-1.035 Urine Protein Negative Negative Urine Ketones Negative Negative Urine Blood Trace H Negative /uL Urine Nitrite Negative Negative Urine Bilirubin Negative Negative Urine Urobilinogen Normal Negative mg/dL Urine Leukocyte Esterase 3+ Negative /uL Urine RBC 12 0 - 3 /hpf Urine Microscopic WBC 105 H 0-3 /HPF Urine Squamous Epithelial Cells None seen <5 /hpf Urine Bacteria None seen None Seen /hpf Urine Glucose Normal Normal mg/dL Current Medications Medications (Trade) Dose Ordered Sig/Isis Route Start Time Stop Time Status Last Admin Ketorolac Tromethamine (Toradol Injection) 60 mg ONCE ONCE IM 12/09/24 22:30 12/09/24 22:31 DC 12/09/24 22:37 Acetaminophen/ Hydrocodone Bitart ([place] 10/325MG Tab) 1 tab ONCE ONCE PO 12/09/24 22:30 12/09/24 22:31 DC 12/09/24 22:36 Time of 1ST Reevaluation: 22:30 Reevaluation 1ST: Unchanged Patient Education/Counseling: Diagnosis, Treatment, Prognosis, Need For Follow Up Family Education/Counseling: Diagnosis, Treatment, Prognosis, Need For Follow Up Departure 1 Departure Time of Disposition: 23:59 Impression: Primary Impression: UTI (urinary tract infection) Qualified Codes: N30.00 - Acute cystitis without hematuria Disposition: 01 HOME / SELF CARE / HOMELESS Condition: Stable e-Prescriptions Ciprofloxacin Hcl (Cipro) 500 Mg Tab 500 MG PO BID for 7 Days, #14 TAB Prov: TITA BRINK 12/10/24 Discharged With: Self Critical Care Note Critical Care Time?: No Stability Stability form required: TITA Carreno Dec 09, 2024 23:11
[2024-12-09 23:32] LABS: Alkaline Phosphatase 112 U/L (46-116); Anion Gap 7 (5-15); Aspartate Aminotransferase 19 U/L (13-40); BUN/Creatinine Ratio 22.5 (10.0-20.0); Blood Urea Nitrogen 20 mg/dL (9-23); Carbon Dioxide 26 mmol/L (20-31); Glucose 96 mg/dL (74-106); Lipase 42 U/L (12-53); Potassium 3.9 mmol/L (3.5-5.1); Sodium 143 mmol/L (136-145)
[2024-12-09 23:42] LABS: Alanine Aminotransferase < 9 U/L (7-40); Bilirubin, Total 0.2 mg/dL (0.2-1.0); Chloride 110 mmol/L (98-107)
[2024-12-10] MEDS ORDERED: CIPR-173 PO
== END 2024-12-10 00:17 | disposition home or self-care (01) ==
LOC: ER 21:05
DX: N39.0 Urinary tract infection, site not specified (principal); F17.210 Nicotine dependence, cigarettes, uncomplicated; Z79.899 Other long term (current) drug therapy
CPT/HCPCS: 36415; 74176; 80053; 81001; 83690; 85025; 96372; 99285; J1885

== ENCOUNTER 2025-02-10 21:10 | Emergency (ER) | payer MEDICAID ==
[~2025-02-10] VITALS: Ht 180.3 cm; Wt 75.0 kg
[2025-02-10 23:47] LABS: Urine Protein, UAD 1+ (Negative)
--- NOTE | 2025-02-10 23:54 | DVH ---
Exam: CT CT AB PEL WO CON-NO ORAL OR IV History: Left-sided flank pain Comparison Study: CT CT AB PEL WO CON-NO ORAL OR IV on DOS: 12/09/24, US KIDNEY on DOS: 02/02/24, CT CT AB PEL WO CON-NO ORAL OR IV on DOS: 07/09/23, LIVER on DOS: 04/28/22, UPEWO on DOS: 04/27/22 TECHNIQUE: Multidetector CT of the abdomen and pelvis was performed from lung bases to pubic symphysi s. Imaging was performed without IV contrast. Axial, coronal, and sagittal multiplanar reformats were obtained from the axial data set by the technologist. RADIATION DOSE: CTDI vol 5.07 mGy. DLP 244.52 mGy.cm Findings: Limited evaluation of the solid organs in the absence of IV contrast. Liver: Unremarkable. Spleen: Unremarkable. Pancreas: Unremarkable. Gallbladder: Unremarkable. Adrenals: Unremarkable Kidneys: Unremarkable. Pelvic Viscera: Unremarkable. Vasculature: Mild atherosclerotic aortoiliac calcifications. Retroperitoneum: Shotty retroperitoneal nodes. Bowel: No bowel obstruction. The appendix is normal. Redemonstrated distention of the stomach. Musculoskeletal: Unremarkable. Soft tissues: Unremarkable Lungs: The lung bases are clear. Impression: 1. Redemonstrated distention of the stomach. 2. Incidental findings as detailed.
[2025-02-11 00:03] LABS: Hematocrit 38.8 % (41.0-53.0); Hemoglobin 13.1 g/dL (13.5-17.5); Mean Corpuscular Hemoglobin 29.8 pg (28.0-32.0); Mean Corpuscular Volume 88.2 fL (80.0-100.0); Nucleated Red Blood Cells % 0.0 %
[2025-02-11 00:07] LABS: Amphetamine Screen, Urine Pos (NEGATIVE); Barbiturate Scree,Urine Neg (NEGATIVE); Benzodiazephine Screen, Urine Neg (NEGATIVE); Cannabinoid Screen, Urine Neg (NEGATIVE); Cocaine Screen, Urine Neg (NEGATIVE); Opiate Scree,Urine Neg (NEGATIVE); Phencyclidine Screen, Urine Neg (NEGATIVE)
[2025-02-11 00:15] LABS: Chloride 103 mmol/L (98-107); Potassium 3.6 mmol/L (3.5-5.1); Sodium 139 mmol/L (136-145)
[2025-02-11 00:16] LABS: Anion Gap 8 (5-15); Calcium 9.3 mg/dL (8.7-10.4); Carbon Dioxide 28 mmol/L (20-31)
[2025-02-11 00:21] LABS: BUN/Creatinine Ratio 28.1 (10.0-20.0)
[2025-02-11 00:24] LABS: Blood Urea Nitrogen 27 mg/dL (9-23); Glucose 115 mg/dL (74-106)
--- NOTE | 2025-02-11 01:16 | ED.PDOC ---
General HPI Comments Patient is a 44-year-old male who appears to be homeless who arrives today for evaluation of left-sided flank pain concerns for the past week. Patient states he was admitted at [facility] two weeks ago for kidney stones, but can not given information related to the resolution of that is stay. Patient appears to be a methamphetamine user. Patient was tachycardic at arrival. Chief Complaint: Flank Pain Time Seen by MD: 23:14 Primary Care Provider: NONE Reviewed notes: Nurses Notes Allergies: Coded Allergies: NO KNOWN ALLERGIES (Unverified , 01/13/20) Home Meds Active Scripts Amoxicillin Trihydrate (Amoxicillin) 500 Mg Cap, 1 CAP PO TID for 10 Days, #30 CAP Prov:MAGUE MANCUSO MD 09/13/24 Levofloxacin Hemihydrate (LEVOFLOXACIN) 500 Mg Tab, 1 TAB PO DAILY for 10 Days, #10 TAB Prov:MAGUE MANCUSO MD 09/11/24 Doxycycline Hyclate (Doxycycline Hyclate) 100 Mg Cap, 1 CAP PO BID for 7 Days, #14 CAP Prov:TITA BRINK 05/28/24 Ibuprofen Micronized (MOTRIN TABLET) 600 Mg Tb, 600 MG PO TID PRN, #40 TAB *Black box warning-NSAIDS can increase risk of PA & hypertension, GI irritation, ulceration, bleed, perferation. Do not use post cardiac surgery. Use short duration/lowest effective dose. Prov:NAT HENSLEY MD 05/06/24 Reported Medications Nabumetone (Nabumetone) 500 Mg Tab, 1 TAB PO BID, TAB 02/03/24 Information Source: Patient Mode of Arrival: Ambulatory Severity: Moderate Timing: Weeks Duration: Intermittent Prehospital treatment: None Onset: Spontaneous History of: Kidney stone Location: (L)Flank Penile discharge: None Modifying factors: None associated signs and symptoms: Abdominal Pain, Flank Pain Past Medical History PAST MEDICAL HISTORY: Denies Surgical History: Denies all surgeries Family History Family History: Reviewed,noncontributory to illness Social History Smoker: Cigarettes, Less Than 1 Pack/Day Alcohol: Occasionally Drugs: Methamphetamine Lives In: Homeless Constitutional: denies: chills, diaphoresis, fatigue, fever, malaise, sweats, weakness, others EENTM: denies: blurred vision, double vision, ear bleeding, ear discharge, ear drainage, ear pain, ear ringing, eye pain, eye redness, hearing loss, mouth pain, mouth swelling, nasal discharge, nose bleeding, nose congestion, nose pain, photophobia, tearing, throat pain, throat swelling, voice changes, others Respiratory: denies: cough, hemoptysis, orthopnea, SOB at rest, shortness of breath, SOB with excertion, stridor, wheezing, others Cardiovascular: denies: chest pain, dizzy spells, diaphoresis, Dyspnea on exertion, edema, irregular heart beat, left arm pain, lightheadedness, palpitations, PND, syncope, others Gastrointestinal: denies: abdomen distended, abdominal pain, blood streaked bowels, constipated, diarrhea, dysphagia, difficulty swallowing, hematemesis, melena, nausea, poor appetite, poor fluid intake, rectal bleeding, rectal pain, vomiting, others Genitourinary: reports: flank pain; denies: burning, dysuria, frequency, hematuria, incontinence, penile discharge, penile sore, pain, testicle pain, testicle swelling, urgency, others Neurological: denies: dizziness, fainting, headache, left sided numbness, left sided weakness, numbness, paresthesia, pre-existing deficit, right sided numbness, right sided weakness, seizure, speech problems, tingling, tremors, weakness, others Musculoskeletal: denies: back pain, gout, joint pain, joint swelling, muscle pain, muscle stiffness, neck pain, others Integumetry: denies: bruises, change in color, change in hair/nails, dryness, laceration, lesions, lumps, rash, wounds, others Allergic/Immunocompromised: denies: Difficulty Healing, Frequent Infections, Hives, Itching, others Hematologic/Lymphatic: denies: anemia, blood clots, easy bleeding, easy bruising, swollen glands, others Endocrine: denies: excessive hunger, excessive sweating, excessive thirst, excessive urination, flushing, intolerance to cold, intolerance to heat, unexplained weight gain, unexplained weight loss, others Psychiatric: denies: anxiety, bipolar disorder, depression, hopeless, panic disorder, schizophrenia, sleepless, suicidal, others Physical Exam General Appearance: Moderate Distress (Moderate distress due to left-sided fl ank pain.), Normal HEENT: Normal ENT Inspection, Pharynx Normal, TMs Normal Neck: Full Range of Motion, Non-Tender, Normal, Normal Inspection Respiratory: Chest Non-Tender, Lungs Clear, No Accessory Muscle Use, No Respiratory Distress, Normal Breath Sounds Cardiovascular: No Edema, No JVD, No Murmur, No Gallop, Normal Peripheral Pulses, Regular Rate/Rhythm Breast Exam: Deferred Gastrointestinal: Other (Diffuse nonspecific left-sided flank pain that has not specific to CVA region. Patient states the pain radiates to the abdomen. No trauma noted.) Genitalia: Deferred Pelvic: Deferred Rectal: Deferred Extremities: No calf tenderness, Normal capillary refill, Normal inspection, Normal range of motion, Non-tender, No pedal edema Neurologic: Alert, No Motor Deficits, Normal Affect, Normal Mood, No Sensory Deficits Cerebellar Function: NOT DONE Reflexes: NOT DONE Skin: Dry, Normal Color, Warm Lymphatic: No Adenopathy Was a procedure done? Was a procedure done?: No Differential Diagnosis Kidney stone (Female): Other (Kidney stone, occlusive kidney stone, pyelonephritis, UTI, musculoskeletal pain) X-Ray, Labs, Meds, VS Vital Signs Date Time Temp Pulse Resp B/P (MAP) Pulse Ox O2 Delivery O2 Flow Rate FiO2 02/11/25 00:38 97.5 87 16 118/69 (85) 96 97.5 02/10/25 21:11 98.5 101 16 137/85 97 98.5 Lab Test 02/10/25 23:46 02/10/25 21:15 Range/Units White Blood Count 8.2 4.4-10.8 10^3/uL Red Blood Count 4.41 L 4.5-5.90 10^6/uL Hemoglobin 13.1 L 13.5-17.5 g/dL Hematocrit 38.8 L 41.0-53.0 % Mean Corpuscular Volume 88.2 80.0-100.0 fL Mean Corpuscular Hemoglobin 29.8 28.0-32.0 pg Mean Corpuscular Hemoglobin Concent 33.8 32.0-36.0 g/dL Red Cell Distribution Width 13.6 11.8-14.3 % Platelet Count 285 140-450 10^3/uL Mean Platelet Volume 6.9 6.9-10.8 fL Neutrophils (%) (Auto) 55.9 37.0-80.0 % Lymphocytes (%) (Auto) 30.1 10.0-50.0 % Monocytes (%) (Auto) 11.2 0.0-12.0 % Eosinophils (%) (Auto) 2.2 0.0-7.0 % Basophils (%) (Auto) 0.6 0.0-2.0 % Neutrophils # (Auto) 4.6 1.6-8.6 10 ^3/uL Lymphocytes # (Auto) 2.5 0.4-5.4 10 ^3/uL Monocytes # (Auto) 0.9 0-1.3 10 ^3/uL Eosinophils # (Auto) 0.2 0-0.8 10 ^3/uL Basophils # (Auto) 0.1 0-0.2 10 ^3/uL Nucleated Red Blood Cells 0.0 % Sodium Level 139 136-145 mmol/L Potassium Level 3.6 3.5-5.1 mmol/L Chloride Level 103 98-107 mmol/L Carbon Dioxide Level 28 20-31 mmol/L Anion Gap 8 5-15 Blood Urea Nitrogen 27 H 9-23 mg/dL Creatinine 0.96 0.700-1.30 mg/dL Glomerular Filtration Rate Calc 101 >90 mL/min BUN/Creatinine Ratio 28.1 H 10.0-20.0 Serum Glucose 115 H 74-106 mg/dL Calcium Level 9.3 8.7-10.4 mg/dL Urine Color Yellow Yellow Urine Clarity Clear Clear Urine pH 5.5 5.0-9.0 Urine Specific [place] 1.033 1.001-1.035 Urine Protein 1+ H Negative Urine Ketones Negative Negative Urine Blood Negative Negative /uL Urine Nitrite Negative Negative Urine Bilirubin Negative Negative Urine Urobilinogen Normal Negative mg/dL Urine Leukocyte Esterase Negative Negative /uL Urine RBC None seen 0 - 3 /hpf Urine Microscopic WBC 1 0-3 /HPF Urine Squamous Epithelial Cells None seen <5 /hpf Urine Bacteria None seen None Seen /hpf Urine Glucose Normal Normal mg/dL Urine Opiates Screen Neg NEGATIVE Urine Fentanyl Screen Neg NEGATIVE Urine Barbiturates Screen Neg NEGATIVE Urine Phencyclidine Screen Neg NEGATIVE Urine Amphetamines Screen Pos NEGATIVE Urine Benzodiazepines Screen Neg NEGATIVE Urine Cocaine Screen Neg NEGATIVE Urine Cannabinoids Screen Neg NEGATIVE X-Ray, Labs, Meds, VS Comment All studies performed the ED were evaluated by me personally. Serum and urinaly sis were unremarkable for any systemic concerns. Drug screen confirmed methamphetamines. CT of the abdomen and pelvis was unremarkable for any intra- abdominal or flank related issues. Patient needs to follow up with the primary care provider for continued evaluation. Advised ceasing methamphetamine use immediately and following up with a assistance programs such as narcotics an onymous. Time of 1ST Reevaluation: :18 Reevaluation 1ST: Improved Consultation: PCP, Other (Narcotics anonymous) Patient Education/Counseling: Diagnosis, Treatment Family Education/Counseling: Diagnosis, Treatment SEPSIS Sepsis Screen Date sepsis recognized/suspect: Feb 10, 2025 Time Sepsis recognized/suspect: 2110 Recent Procedure: No On Antibiotic Therapy: No Respiratory Rate >20: No Heart Rate >90: Yes Temp<36 C (96.8 F) or >38.3 C: No SBP <90 or MAP <65 mmHG: No New Acute Mental Status Change: No Is the patient on CPAP, BIPAP,: No Physician Orders Ct Ab Pel Wo Con-No Oral Or Iv (02/10/25 23:19) Vital Signs Date Time Temp Pulse Resp B/P (MAP) Pulse Ox O2 Delivery O2 Flow Rate FiO2 02/11/25 00:38 97.5 87 16 118/69 (85) 96 97.5 02/10/25 21:11 98.5 101 16 137/85 97 98.5 Laboratory Tests Test 02/10/25 23:46 White Blood Count 8.2 10^3/uL (4.4-10.8) Departure 1 Departure Time of Disposition: :18 Impression: Primary Impression: Flank pain Disposition: HOME / SELF CARE / HOMELESS Condition: Stable Additional Instructions: Advise utilizing medication as needed for symptomatic relief as well as follow up with the primary care provider. Additionally, advised ceasing methamphetamine use immediately and following up with a drug assistance programs such as narcotics anonymous. e-Prescriptions Ibuprofen Micronized (Ibuprofen) 800 Mg Tab 800 MG PO Q8HP PRN, #20 TAB Prov: NIMESH HOUGH PAC 02/11/25 Discharged With: Self, Friend Critical Care Note Critical Care Time?: No Stability Stability form required: No Heart Score Heart Score: Heart Score Response (Comments) Value History N/A 0 EKG N/A 0 Age N/A 0 Risk Factors N/A 0 Troponin N/A 0 Total 0 NIMESH HOUGH PAC Feb 11, 2025 01:16
[2025-02-11] MEDS ORDERED: IBUP-1455 PO (01:19)
[2025-02-11 02:32] VITALS: BP 102/64; TEMP 97.8
[2025-02-11 02:35] VITALS: PULSE 87; RESP 16; O2SAT 98
[2025-02-11] MEDS: KETOROLAC TROMETH 60MG/2ML VIAL IM ONE (02:54)
[2025-02-11] MEDS: HYDROcodone-ACET 5/325MG TAB PO ONE (02:55)
== END 2025-02-11 02:40 | disposition home or self-care (01) ==
LOC: ER 21:10
DX: R10.9 Unspecified abdominal pain (principal); F17.210 Nicotine dependence, cigarettes, uncomplicated; F19.90 Other psychoactive substance use, unspecified, uncomplicated; F10.90 Alcohol use, unspecified, uncomplicated; Z87.442 Personal history of urinary calculi; Z59.00 Homelessness unspecified; Z79.899 Other long term (current) drug therapy; Y90.9 Presence of alcohol in blood, level not specified
CPT/HCPCS: 36415; 74176; 80048; 80307; 81001; 85025